=== PATIENT | male | born 1955 | race Caucasian/White ===

== ENCOUNTER → 2017-02-12 | Outpatient (CLI) | payer MEDICARE, MEDICAID ==
[~2017-02-12] MED LIST: ASPI-498 OR; BENA20TA PO; CILO100T PO; CLOP75TA28 PO; ESOM40CA39 PO; FLUT250M2 INH; LEVO100T8 PO; METO25TA5 PO; MULT-908 OR; PHE100C PO; POTA10TA51 PO; SIMV10TA73 PO; TRIA75TA66 PO
== END ==
LOC: Rad HDHVI 10:19
PROVIDERS: ATTEND Internal Medicine Cardiovascular Disease
DX: M47.896 Other spondylosis, lumbar region (principal); I70.0 Atherosclerosis of aorta
CPT/HCPCS: 72110

== ENCOUNTER → 2017-10-09 | Outpatient (CLI) | payer MEDICARE, MEDICAID ==
[~2017-10-09] VITALS: Ht 30.5 cm; Wt 78.9 kg
[~2017-10-09] MED LIST changes: +IOHEXOL 350 MG/ML 100ML IJ ONE; +METOPROLOL TARTRATE 25 MG TAB ONE; +METOPROLOL TARTRATE 25 MG TAB PO ONE; +SODIUM CHLORIDE 0.9% 250 ML IV ONE
[2017-10-09 09:00] VITALS: BP 191/110
[2017-10-09 10:50] VITALS: BP 170/98
== END | disposition home or self-care (01) ==
LOC: Rad HDHVI 08:56
PROVIDERS: ATTEND Internal Medicine Cardiovascular Disease
DX: I25.10 Atherosclerotic heart disease of native coronary artery without angina pectoris (principal); I12.9 Hypertensive chronic kidney disease with stage 1 through stage 4 chronic kidney disease, or unspecified chronic kidney disease; N18.9 Chronic kidney disease, unspecified
CPT/HCPCS: 82565; 96374; G0463; Q9967

== ENCOUNTER → 2017-10-16 | Outpatient (CLI) | payer MEDICARE, MEDICAID ==
[~2017-10-16] MED LIST changes: -IOHEXOL 350 MG/ML 100ML IJ ONE; -METOPROLOL TARTRATE 25 MG TAB ONE; -METOPROLOL TARTRATE 25 MG TAB PO ONE; -SODIUM CHLORIDE 0.9% 250 ML IV ONE
== END | disposition home or self-care (01) ==
LOC: Rad HDHVI 12:36
PROVIDERS: ATTEND Internal Medicine Cardiovascular Disease
DX: I08.1 Rheumatic disorders of both mitral and tricuspid valves (principal); I70.0 Atherosclerosis of aorta; I25.10 Atherosclerotic heart disease of native coronary artery without angina pectoris
CPT/HCPCS: 93306; 93926

== ENCOUNTER → 2017-10-23 | Outpatient (CLI) | payer MEDICARE, MEDICAID ==
[~2017-10-23] VITALS: Ht 175.3 cm; Wt 78.9 kg
[~2017-10-23] MED LIST changes: +ADENOSINE 66 MG in GIVE UN-DILUTED 0 ML IV ONE; +ADENOSINE 90 MG/30 ML INJ IV ONE
[2017-10-23 16:44] LABS: Urine Bilirubin Negative (Negative); Urine Blood Negative /uL (Negative); Urine Color Yellow (Yellow); Urine Glucose Normal (Normal); Urine Ketone Negative (Negative); Urine Nitrite Negative (Negative); Urine Urobilinogen Normal (Negative); Urine pH 5.5 (5.0-8.0)
[2017-10-23 16:45] LABS: Basophils # (auto) 0 uL; Basophils % (auto) 0.4 % (0.0-2.0); Eosinophils # (auto) 0.1 uL; Eosinophils % (auto) 0.8 % (0.0-7.0); Hematocrit 38.6 % (41.0-53.0); Hemoglobin 12.7 g/dL (13.5-17.5); Lymphocytes # (auto) 1.6 uL; Lymphocytes % (auto) 19.4 % (10.0-50.0); Mean Corpuscular Hemoglobin 28.5 pg (28.0-32.0); Mean Corpuscular Hgb Conc. 32.9 g/dL (32.0-36.0); Mean Corpuscular Volume 86.6 fL (80.0-100.0); Mean Platelet Volume 8.1 fL (6.9-10.8); Monocytes # (auto) 0.8 uL; Monocytes % (auto) 9.4 % (0.0-12.0); Neutrophils # (auto) 5.8 uL; Nucleated Red Blood Cells % 0.4 %; Platelet Count (auto) 215 10^3/uL (140-450); Red Cell Distribution Width 18.5 % (11.8-14.3); White Blood Cell 8.3 10^3/uL (4.4-10.8)
[2017-10-23 17:03] LABS: Albumin 3.5 g/dL (3.4-5.0); BUN/Creatinine Ratio 12.7; Bilirubin, Total 0.7 mg/dL (0.2-1.0); Calcium 9.1 mg/dL (8.5-10.1); Potassium 4.1 mmol/L (3.5-5.1); Total Protein 8.1 g/dL (6.4-8.2)
== END | disposition home or self-care (01) ==
LOC: Rad HDHVI 09:48
PROVIDERS: ATTEND Internal Medicine Cardiovascular Disease
DX: E78.00 Pure hypercholesterolemia, unspecified (principal); I10 Essential (primary) hypertension; I25.10 Atherosclerotic heart disease of native coronary artery without angina pectoris; M54.9 Dorsalgia, unspecified; D64.9 Anemia, unspecified; E03.9 Hypothyroidism, unspecified; E11.9 Type 2 diabetes mellitus without complications; E55.9 Vitamin D deficiency, unspecified; R53.81 Other malaise; R79.82 Elevated C-reactive protein (CRP); D51.9 Vitamin B12 deficiency anemia, unspecified; N39.0 Urinary tract infection, site not specified; R94.4 Abnormal results of kidney function studies; K74.1 Hepatic sclerosis; R10.9 Unspecified abdominal pain; H53.9 Unspecified visual disturbance; R63.4 Abnormal weight loss; R53.1 Weakness
CPT/HCPCS: 36415; 78452; 80053; 80061; 81003; 82040; 82306; 82607; 83036; 84403; 84439; 84443; 85025; 86141; 93005; 96374; 96375; A9500; J0153

== ENCOUNTER → 2017-12-11 | Outpatient (CLI) | payer MEDICARE, MEDICAID ==
[~2017-12-11] MED LIST changes: -ADENOSINE 66 MG in GIVE UN-DILUTED 0 ML IV ONE; -ADENOSINE 90 MG/30 ML INJ IV ONE; +AMLO10TA2 PO; +CHOL20007 PO; +CLON0.1T14 PO; +IOHEXOL 350 MG/ML 100ML IJ ONE; +METOPROLOL TARTRATE 25 MG TAB ONE; +METOPROLOL TARTRATE 25 MG TAB PO ONE; +ONDANSETRON HCL 4 MG/2 ML VIAL ONE; +SACU1TAB PO; +SODIUM CHLORIDE 0.9% 1,000 ML IV SCH; +amLODIPine BESYLATE 5 MG TAB ONE; +amLODIPine BESYLATE 5 MG TAB PO ONE
[2017-12-11 12:55] VITALS: BP 165/93
[2017-12-11 16:20] VITALS: BP 150/94
[2017-12-11 16:30] LABS: BUN/Creatinine Ratio 12.7; Calcium 8.8 mg/dL (8.5-10.1); Potassium 3.8 mmol/L (3.5-5.1)
[2017-12-11 16:31] LABS: Basophils # (auto) 0 uL; Basophils % (auto) 0.5 % (0.0-2.0); Eosinophils # (auto) 0.1 uL; Eosinophils % (auto) 1.1 % (0.0-7.0); Hematocrit 35.2 % (41.0-53.0); Hemoglobin 11.2 g/dL (13.5-17.5); Lymphocytes # (auto) 1.1 uL; Lymphocytes % (auto) 21.5 % (10.0-50.0); Mean Corpuscular Hemoglobin 27.2 pg (28.0-32.0); Mean Corpuscular Hgb Conc. 31.8 g/dL (32.0-36.0); Mean Corpuscular Volume 85.7 fL (80.0-100.0); Monocytes # (auto) 0.4 uL; Monocytes % (auto) 8.7 % (0.0-12.0); Neutrophils # (auto) 3.5 uL; Neutrophils % (auto) 68.2 % (37.0-80.0); Platelet Count (auto) 174 10^3/uL (140-450); Red Cell Distribution Width 18.6 % (11.8-14.3); White Blood Cell 5.1 10^3/uL (4.4-10.8)
[2017-12-11 16:53] LABS: INR 1.15 (0.9-1.15); Partial Thromboplastin Time 28.6 sec (22.64-33.71); Prothrombin Time 12.6 sec (9.37-12.3)
== END | disposition home or self-care (01) ==
LOC: Rad HDHVI 12:50
PROVIDERS: ATTEND Internal Medicine Cardiovascular Disease
DX: Z01.812 Encounter for preprocedural laboratory examination (principal); D64.9 Anemia, unspecified; R79.1 Abnormal coagulation profile; I10 Essential (primary) hypertension; J44.9 Chronic obstructive pulmonary disease, unspecified; F17.200 Nicotine dependence, unspecified, uncomplicated; I50.9 Heart failure, unspecified; I25.10 Atherosclerotic heart disease of native coronary artery without angina pectoris
CPT/HCPCS: 36415; 71250; 80048; 82565; 85025; 85610; 85730; 93005; 94640; 96361; 96374; G0463; Q9967; 96360; 96366; J2405

== ENCOUNTER 2017-12-12 10:55 | Day surgery (SDC) | payer MEDICARE, MEDICAID ==
[~2017-12-12 10:55] MED LIST changes: -AMLO10TA2 PO; -CHOL20007 PO; -CLON0.1T14 PO; -IOHEXOL 350 MG/ML 100ML IJ ONE; -METOPROLOL TARTRATE 25 MG TAB ONE; -METOPROLOL TARTRATE 25 MG TAB PO ONE; -ONDANSETRON HCL 4 MG/2 ML VIAL ONE; -SACU1TAB PO; -SODIUM CHLORIDE 0.9% 1,000 ML IV SCH; -amLODIPine BESYLATE 5 MG TAB ONE; -amLODIPine BESYLATE 5 MG TAB PO ONE
== END 2017-12-12 15:00 | disposition home or self-care (01) ==
LOC: CATH 10:55
PROVIDERS: ATTEND Internal Medicine Cardiovascular Disease
DX: J90 Pleural effusion, not elsewhere classified (principal); Z95.1 Presence of aortocoronary bypass graft; F32.9 Major depressive disorder, single episode, unspecified; F17.210 Nicotine dependence, cigarettes, uncomplicated; I10 Essential (primary) hypertension; K21.9 Gastro-esophageal reflux disease without esophagitis; E03.9 Hypothyroidism, unspecified
CPT/HCPCS: 10022; 32555; 71045; 76942; 87205; 89051

== ENCOUNTER 2017-12-29 10:51 | Inpatient (IN) | payer MEDICARE, MEDICAID ==
[~2017-12-29] VITALS: Ht 175.3 cm; Wt 98.5 kg
[2017-12-29 11:28] LABS: Basophils # (auto) 0 uL; Basophils % (auto) 0.4 % (0.0-2.0); Eosinophils # (auto) 0 uL; Eosinophils % (auto) 0.7 % (0.0-7.0); Hematocrit 33.7 % (41.0-53.0); Hemoglobin 10.9 g/dL (13.5-17.5); Lymphocytes % (auto) 18.5 % (10.0-50.0); Mean Corpuscular Hemoglobin 27.1 pg (28.0-32.0); Mean Corpuscular Hgb Conc. 32.4 g/dL (32.0-36.0); Mean Corpuscular Volume 83.6 fL (80.0-100.0); Monocytes # (auto) 0.4 uL; Neutrophils % (auto) 72.4 % (37.0-80.0); Platelet Count (auto) 174 10^3/uL (140-450); Red Blood Cells 4.03 10^6/uL (4.5-5.90); Red Cell Distribution Width 19.4 % (11.8-14.3); White Blood Cell 5.5 10^3/uL (4.4-10.8)
[2017-12-29 11:50] LABS: Alanine Aminotransferase 18 U/L (16-61); Albumin 3.1 g/dL (3.4-5.0); Alkaline Phosphatase 168 U/L (45-117); Anion Gap 9 (5-15); Aspartate Aminotransferase 15 U/L (15-37); Bilirubin, Total 0.5 mg/dL (0.2-1.0); Blood Urea Nitrogen 18 mg/dL (7-18); Calcium 8.3 mg/dL (8.5-10.1); Carbon Dioxide 21 mmol/L (21-32); Chloride 106 mmol/L (98-107); GFR African American 49 mL/min; GFR Non-African American 41 mL/min; Glucose 115 mg/dL (74-106); Potassium 3.8 mmol/L (3.5-5.1); Sodium 136 mmol/L (136-145); Total Protein 7.7 g/dL (6.4-8.2)
[2017-12-29] MEDS ORDERED: FUROSEMIDE 20 MG/2 ML VIAL IV ONE (16:15)
[2017-12-29 16:41] LABS: Urine Bacteria NONE SEEN /hpf (None Seen); Urine Blood Negative /uL (Negative); Urine Specific Gravity 1.018 (1.001-1.035); Urine WBC 1 /hpf (0 - 3)
[2017-12-29] MEDS ORDERED: FUROSEMIDE 40 MG/4 ML VIAL IV ONE (19:30)
[2017-12-29] MEDS ORDERED: HYDROcodone-ACET 5/325MG TAB PO PRN (19:45)
[2017-12-29] MEDS ORDERED: MORPHINE SULFATE 4 MG/ML SYR/VIAL IV PRN ×2 (19:45)
[2017-12-29] MEDS ORDERED: NITROGLYCERIN 0.4 MG SL TAB SL PRN (19:45)
[2017-12-29] MEDS ORDERED: TEMAZEPAM 15 MG CAP PO PRN (19:45)
[2017-12-29] MEDS ORDERED: cloNIDine HCL 0.1 MG TAB PO PRN (19:45)
[2017-12-29] MEDS ORDERED: LORazepam 2MG/ML-1ML VIAL IV PRN (19:45)
[2017-12-29] MEDS ORDERED: DOCUSATE SOD 100 MG CAP PO PRN (19:45)
[2017-12-29] MEDS ORDERED: ACETAMINOPHEN 325 MG TAB PO PRN (19:45)
[2017-12-29] MEDS ORDERED: ONDANSETRON HCL 4 MG/2 ML VIAL IV PRN (19:45)
[2017-12-29 21:35] VITALS: BP 127/87
[2017-12-29] MEDS: CILOSTAZOL 100 MG TAB PO SCH (21:45)
[2017-12-29] MEDS: ATORVASTATIN 20 MG TAB PO SCH (21:45)
[2017-12-29] MEDS: ASCORBIC ACID 500 MG TAB PO SCH (21:45)
[2017-12-29] MEDS: POTASSIUM CHL 10 Meq TABLET PO SCH (21:46)
[2017-12-29] MEDS: SODIUM CHLOR 0.9% PF (SALINE LOCK) 10ML VIAL IV SCH (21:46)
[2017-12-29] MEDS: PHENYTOIN SODIUM 100 MG CAP PO SCH (21:46)
[2017-12-29] MEDS: cloNIDine HCL 0.1 MG TAB PO SCH (21:59)
[2017-12-29] MEDS ORDERED: FAMOTIDINE 20 MG TAB PO SCH (22:00)
[2017-12-30 04:39] VITALS: BP 123/85
[2017-12-30] MEDS: FUROSEMIDE 40 MG/4 ML VIAL IV SCH ×2 (05:25→18:31)
[2017-12-30] MEDS: PHENYTOIN SODIUM 100 MG CAP PO SCH ×3 (05:25→21:20)
[2017-12-30] MEDS: LEVOTHYROXINE SODIUM 100 MCG TAB PO SCH (06:17)
[2017-12-30] MEDS: SODIUM CHLOR 0.9% PF (SALINE LOCK) 10ML VIAL IV SCH ×3 (06:18→21:20)
[2017-12-30 06:50] LABS: Basophils # (auto) 0 uL; Eosinophils # (auto) 0 uL; Neutrophils # (auto) 3.4 uL; Nucleated Red Blood Cells % 0.1 %
[2017-12-30 06:53] LABS: Basophils % (auto) 0.6 % (0.0-2.0); Eosinophils % (auto) 0.9 % (0.0-7.0); Hematocrit 31.9 % (41.0-53.0); Hemoglobin 10.6 g/dL (13.5-17.5); Lymphocytes # (auto) 1.1 uL; Mean Corpuscular Hemoglobin 27.3 pg (28.0-32.0); Mean Corpuscular Hgb Conc. 33.1 g/dL (32.0-36.0); Mean Corpuscular Volume 82.6 fL (80.0-100.0); Monocytes # (auto) 0.5 uL; Monocytes % (auto) 10.6 % (0.0-12.0); Neutrophils % (auto) 66.9 % (37.0-80.0); Platelet Count (auto) 153 10^3/uL (140-450); Red Blood Cells 3.86 10^6/uL (4.5-5.90); Red Cell Distribution Width 19.2 % (11.8-14.3)
[2017-12-30 07:14] LABS: Alanine Aminotransferase 17 U/L (16-61); Albumin 3.1 g/dL (3.4-5.0); Alkaline Phosphatase 137 U/L (45-117); Anion Gap 9 (5-15); Aspartate Aminotransferase 16 U/L (15-37); BUN/Creatinine Ratio 9.9; Bilirubin, Total 0.7 mg/dL (0.2-1.0); Blood Urea Nitrogen 18 mg/dL (7-18); Calcium 8.4 mg/dL (8.5-10.1); Carbon Dioxide 25 mmol/L (21-32); Chloride 103 mmol/L (98-107); GFR African American 49 mL/min; GFR Non-African American 40 mL/min; Glucose 99 mg/dL (74-106); Potassium 3.2 mmol/L (3.5-5.1); Sodium 137 mmol/L (136-145); Total Protein 7.3 g/dL (6.4-8.2)
[2017-12-30 09:00] VITALS: BP 142/110
[2017-12-30] MEDS ORDERED: TRIAMTERENE/HCTZ 37.5/25 MG CAP PO SCH (10:00)
[2017-12-30] MEDS ORDERED: PATIENTS OWN MEDICATION IN SCH (10:00)
[2017-12-30] MEDS ORDERED: ENOXAPARIN SOD 40 MG/0.4 ML SYRINGE SC SCH (10:00)
[2017-12-30] MEDS: ENTRESTO PO SCH ×2 (10:00→21:29)
[2017-12-30] MEDS: PANTOPRAZOLE 40 MG TAB PO SCH (10:09)
[2017-12-30] MEDS: ASCORBIC ACID 500 MG TAB PO SCH ×2 (10:09→21:20)
[2017-12-30] MEDS: METOPROLOL SUCCINATE XL 50 MG TAB PO SCH (10:09)
[2017-12-30] MEDS: POTASSIUM CHL 10 Meq TABLET PO SCH ×2 (10:09→21:20)
[2017-12-30] MEDS: MULTIPLE VITAMIN TAB PO SCH (10:10)
[2017-12-30] MEDS: CLOPIDOGREL BISULFATE 75 MG TAB PO SCH (10:10)
[2017-12-30] MEDS: CHOLECALCIFEROL (VITD3) 1,000 UNIT TAB PO SCH (10:10)
[2017-12-30] MEDS: ASPirin-EC 81 mg tab PO SCH (10:11)
[2017-12-30] MEDS: amLODIPine BESYLATE 5 MG TAB PO SCH (10:12)
[2017-12-30] MEDS: ZINC SULFATE 220 MG CAP PO SCH (10:12)
[2017-12-30] MEDS: cloNIDine HCL 0.1 MG TAB PO SCH ×2 (10:12→21:30)
[2017-12-30] MEDS: CILOSTAZOL 100 MG TAB PO SCH ×2 (10:12→21:20)
[2017-12-30] MEDS: BOOST PLUS 8 ounce PO SCH ×3 (10:14→18:31)
[2017-12-30 13:00] VITALS: BP 86/60
[2017-12-30] MEDS: ALBUTEROL SULF 2.5 MG/0.5ML(0.5%) NEB SOLN NEB SCH ×2 (14:03→19:29)
[2017-12-30] MEDS: IPRATROPIUM BROM 0.5 MG/2.5ML INH SOL NEB SCH ×2 (14:03→19:29)
[2017-12-30] MEDS: SPIRONOLACTONE 25 MG TAB PO SCH (14:26)
[2017-12-30] MEDS: DOBUTamine 1000MCG/ML 250 ML IV SCH ×2 (14:26→23:11)
[2017-12-30 17:00] VITALS: BP 93/42
[2017-12-30] MEDS ORDERED: CLON0.1T14 PO (17:56)
[2017-12-30] MEDS ORDERED: SACU1TAB PO (17:56)
[2017-12-30] MEDS ORDERED: AMLO10TA2 PO (17:56)
[2017-12-30] MEDS ORDERED: CHOL20007 PO (17:56)
[2017-12-30 19:32] VITALS: BP 112/68
[2017-12-30] MEDS: ATORVASTATIN 20 MG TAB PO SCH (21:28)
[2017-12-30 21:40] VITALS: BP 106/56
[2017-12-31] MEDS: IPRATROPIUM BROM 0.5 MG/2.5ML INH SOL NEB SCH ×4 (00:08→19:43)
[2017-12-31] MEDS: ALBUTEROL SULF 2.5 MG/0.5ML(0.5%) NEB SOLN NEB SCH ×4 (00:08→19:43)
[2017-12-31 04:57] VITALS: BP 112/52
[2017-12-31] MEDS: PHENYTOIN SODIUM 100 MG CAP PO SCH ×3 (05:30→22:41)
[2017-12-31] MEDS: SODIUM CHLOR 0.9% PF (SALINE LOCK) 10ML VIAL IV SCH ×3 (05:30→22:00)
[2017-12-31] MEDS: FUROSEMIDE 40 MG/4 ML VIAL IV SCH ×2 (05:30→18:18)
[2017-12-31] MEDS: LEVOTHYROXINE SODIUM 100 MCG TAB PO SCH (06:07)
[2017-12-31 08:00] VITALS: BP 105/64
[2017-12-31] MEDS: BOOST PLUS 8 ounce PO SCH ×3 (08:00→18:18)
[2017-12-31 08:31] VITALS: BP 105/64
[2017-12-31] MEDS: ENTRESTO PO SCH ×2 (10:00→22:00)
[2017-12-31] MEDS: PANTOPRAZOLE 40 MG TAB PO SCH (10:00)
[2017-12-31] MEDS: DOBUTamine 1000MCG/ML 250 ML IV SCH ×2 (11:51→20:20)
[2017-12-31] MEDS: ZINC SULFATE 220 MG CAP PO SCH (12:19)
[2017-12-31] MEDS: SPIRONOLACTONE 25 MG TAB PO SCH (12:19)
[2017-12-31] MEDS: ASPirin-EC 81 mg tab PO SCH (12:20)
[2017-12-31] MEDS: cloNIDine HCL 0.1 MG TAB PO SCH ×2 (12:20→22:41)
[2017-12-31] MEDS: MULTIPLE VITAMIN TAB PO SCH (12:21)
[2017-12-31] MEDS: POTASSIUM CHL 10 Meq TABLET PO SCH ×2 (12:21→22:41)
[2017-12-31] MEDS: CILOSTAZOL 100 MG TAB PO SCH ×2 (12:21→22:42)
[2017-12-31] MEDS: CLOPIDOGREL BISULFATE 75 MG TAB PO SCH (12:21)
[2017-12-31] MEDS: ASCORBIC ACID 500 MG TAB PO SCH ×2 (12:22→22:42)
[2017-12-31] MEDS: METOPROLOL SUCCINATE XL 50 MG TAB PO SCH (12:22)
[2017-12-31] MEDS: CHOLECALCIFEROL (VITD3) 1,000 UNIT TAB PO SCH (12:22)
[2017-12-31] MEDS: amLODIPine BESYLATE 5 MG TAB PO SCH (12:23)
[2017-12-31 12:26] VITALS: BP 105/62
[2017-12-31 17:04] VITALS: BP 122/76
[2017-12-31 22:08] VITALS: BP 125/62
[2017-12-31] MEDS: ATORVASTATIN 20 MG TAB PO SCH (22:42)
[2018-01-01] MEDS: IPRATROPIUM BROM 0.5 MG/2.5ML INH SOL NEB SCH ×3 (00:29→12:34)
[2018-01-01] MEDS: ALBUTEROL SULF 2.5 MG/0.5ML(0.5%) NEB SOLN NEB SCH ×3 (00:29→12:34)
[2018-01-01] MEDS: DOBUTamine 1000MCG/ML 250 ML IV SCH ×3 (03:05→12:25)
[2018-01-01 05:39] VITALS: BP 139/79
[2018-01-01] MEDS: FUROSEMIDE 40 MG/4 ML VIAL IV SCH (05:41)
[2018-01-01] MEDS: PHENYTOIN SODIUM 100 MG CAP PO SCH (05:41)
[2018-01-01] MEDS: LEVOTHYROXINE SODIUM 100 MCG TAB PO SCH (05:42)
[2018-01-01] MEDS: SODIUM CHLOR 0.9% PF (SALINE LOCK) 10ML VIAL IV SCH (05:42)
[2018-01-01 06:49] LABS: Basophils # (auto) 0 uL; Basophils % (auto) 0.5 % (0.0-2.0); Eosinophils # (auto) 0.1 uL; Monocytes # (auto) 0.5 uL; Neutrophils # (auto) 2.6 uL
[2018-01-01 06:52] LABS: Eosinophils % (auto) 1.4 % (0.0-7.0); Hematocrit 28.4 % (41.0-53.0); Hemoglobin 9.4 g/dL (13.5-17.5); Lymphocytes % (auto) 24.3 % (10.0-50.0); Mean Corpuscular Hemoglobin 27.1 pg (28.0-32.0); Mean Corpuscular Volume 82.1 fL (80.0-100.0); Monocytes % (auto) 11.4 % (0.0-12.0); Neutrophils % (auto) 62.4 % (37.0-80.0); Platelet Count (auto) 135 10^3/uL (140-450); Red Blood Cells 3.46 10^6/uL (4.5-5.90); Red Cell Distribution Width 19.8 % (11.8-14.3); White Blood Cell 4.1 10^3/uL (4.4-10.8)
[2018-01-01 07:14] LABS: Albumin 3.2 g/dL (3.4-5.0); BUN/Creatinine Ratio 11.3; Bilirubin, Total 0.7 mg/dL (0.2-1.0); Calcium 8.9 mg/dL (8.5-10.1); Potassium 3.6 mmol/L (3.5-5.1); Total Protein 7.3 g/dL (6.4-8.2)
[2018-01-01 09:00] VITALS: BP 113/68
[2018-01-01] MEDS: CHOLECALCIFEROL (VITD3) 1,000 UNIT TAB PO SCH (09:10)
[2018-01-01] MEDS: SPIRONOLACTONE 25 MG TAB PO SCH (09:10)
[2018-01-01] MEDS: CLOPIDOGREL BISULFATE 75 MG TAB PO SCH (09:11)
[2018-01-01] MEDS: POTASSIUM CHL 10 Meq TABLET PO SCH (09:11)
[2018-01-01] MEDS: ZINC SULFATE 220 MG CAP PO SCH (09:11)
[2018-01-01] MEDS: MULTIPLE VITAMIN TAB PO SCH (09:11)
[2018-01-01] MEDS: CILOSTAZOL 100 MG TAB PO SCH ×2 (09:11→10:00)
[2018-01-01] MEDS: PANTOPRAZOLE 40 MG TAB PO SCH (09:12)
[2018-01-01] MEDS: METOPROLOL SUCCINATE XL 50 MG TAB PO SCH (09:12)
[2018-01-01] MEDS: amLODIPine BESYLATE 5 MG TAB PO SCH (09:12)
[2018-01-01] MEDS: ASCORBIC ACID 500 MG TAB PO SCH (09:13)
[2018-01-01] MEDS: ASPirin-EC 81 mg tab PO SCH (09:13)
[2018-01-01] MEDS: cloNIDine HCL 0.1 MG TAB PO SCH (09:13)
[2018-01-01] MEDS: BOOST PLUS 8 ounce PO SCH (09:17)
[2018-01-01] MEDS: ENTRESTO PO SCH (10:00)
[2018-01-01 11:39] VITALS: BP 113/68
[2018-01-01 12:21] VITALS: BP 116/68
== END 2018-01-01 13:25 | disposition home health service (06) | DRG 291 ==
LOC: ER 10:51 → TELE 10:52 → TELE-EAST 21:35
PROVIDERS: ADMIT Internal Medicine; ATTEND Family Medicine
PROC: 0W993ZZ Drainage of Right Pleural Cavity, Percutaneous Approach (ICD-10-PCS; principal; 2017-12-30)
DX: I13.0 Hypertensive heart and chronic kidney disease with heart failure and stage 1 through stage 4 chronic kidney disease, or unspecified chronic kidney disease (principal); I50.43 Acute on chronic combined systolic (congestive) and diastolic (congestive) heart failure; J90 Pleural effusion, not elsewhere classified; E44.0 Moderate protein-calorie malnutrition; N18.3 Chronic kidney disease, stage 3 (moderate); E83.51 Hypocalcemia; Z95.1 Presence of aortocoronary bypass graft; I25.5 Ischemic cardiomyopathy; D63.8 Anemia in other chronic diseases classified elsewhere; E03.9 Hypothyroidism, unspecified; E78.00 Pure hypercholesterolemia, unspecified; E78.5 Hyperlipidemia, unspecified; E87.6 Hypokalemia; F17.210 Nicotine dependence, cigarettes, uncomplicated; J44.9 Chronic obstructive pulmonary disease, unspecified; G40.909 Epilepsy, unspecified, not intractable, without status epilepticus; I25.10 Atherosclerotic heart disease of native coronary artery without angina pectoris; Z68.32 Body mass index [BMI] 32.0-32.9, adult; I25.2 Old myocardial infarction; Z82.49 Family history of ischemic heart disease and other diseases of the circulatory system; Z83.3 Family history of diabetes mellitus; Z86.73 Personal history of transient ischemic attack (TIA), and cerebral infarction without residual deficits; Z91.19 Patient's noncompliance with other medical treatment and regimen; Z95.5 Presence of coronary angioplasty implant and graft; Z95.810 Presence of automatic (implantable) cardiac defibrillator; Z79.899 Other long term (current) drug therapy; Z79.82 Long term (current) use of aspirin
CPT/HCPCS: 32554; 36415; 51702; 71046; 80053; 81001; 83880; 84484; 85025; 93005; 94640; 94761; 96374; 96376

== ENCOUNTER → 2018-01-02 | Outpatient (CLI) | payer MEDICARE, MEDICAID ==
[~2018-01-02] MED LIST changes: +AMLO10TA2 PO; -BENA20TA PO; +BUMETANIDE (0.25MG/ML) 4 ML VIAL IV ONE; +BUMETANIDE INJECTION 10 ML ONE; +CHOL20007 PO; +CLON0.1T14 PO; +CYANOCOBALAMIN (B-12) 1000 MCG/1 ML VIAL IM ONE; +CYANOCOBALAMIN (B-12) 1000 MCG/1 ML VIAL ONE; +POTASSIUM CHL 20 Meq TABLET PO ONE; +SACU1TAB PO
[2018-01-02 12:00] VITALS: BP 144/81
[2018-01-02 13:40] VITALS: BP 145/86
[2018-01-02 16:33] LABS: Basophils # (auto) 0 uL; Basophils % (auto) 0.4 % (0.0-2.0); Eosinophils # (auto) 0.1 uL; Hemoglobin 10.7 g/dL (13.5-17.5); Lymphocytes # (auto) 0.7 uL; Monocytes # (auto) 0.4 uL; Monocytes % (auto) 10.7 % (0.0-12.0); Neutrophils # (auto) 2.9 uL; Neutrophils % (auto) 70.3 % (37.0-80.0); Nucleated Red Blood Cells % 0.5 %; White Blood Cell 4.1 10^3/uL (4.4-10.8)
[2018-01-02 16:34] LABS: BUN/Creatinine Ratio 16.2; Magnesium 2.7 mg/dL (1.6-2.6)
[2018-01-02 16:35] LABS: Eosinophils % (auto) 1.7 % (0.0-7.0); Hematocrit 33.4 % (41.0-53.0); Lymphocytes % (auto) 16.9 % (10.0-50.0); Mean Corpuscular Hemoglobin 26.8 pg (28.0-32.0); Mean Corpuscular Hgb Conc. 32.1 g/dL (32.0-36.0); Mean Corpuscular Volume 83.4 fL (80.0-100.0); Platelet Count (auto) 140 10^3/uL (140-450); Red Cell Distribution Width 19.7 % (11.8-14.3)
== END | disposition home or self-care (01) ==
LOC: CHF HDHVI 12:16
PROVIDERS: ATTEND Internal Medicine Cardiovascular Disease
DX: I11.0 Hypertensive heart disease with heart failure (principal); I50.9 Heart failure, unspecified; D64.9 Anemia, unspecified; E83.40 Disorders of magnesium metabolism, unspecified; J90 Pleural effusion, not elsewhere classified
CPT/HCPCS: 36415; 71046; 80048; 83735; 83880; 85025; 96372; 96374; G0463; J3420

== ENCOUNTER → 2018-01-03 | Outpatient (CLI) | payer MEDICARE, MEDICAID ==
[~2018-01-03] VITALS: Ht 175.3 cm; Wt 80.7 kg
[~2018-01-03] MED LIST changes: -BUMETANIDE (0.25MG/ML) 4 ML VIAL IV ONE; -BUMETANIDE INJECTION 10 ML ONE; -CYANOCOBALAMIN (B-12) 1000 MCG/1 ML VIAL IM ONE; -CYANOCOBALAMIN (B-12) 1000 MCG/1 ML VIAL ONE; -POTASSIUM CHL 20 Meq TABLET PO ONE
== END | disposition home or self-care (01) ==
LOC: Rad HDHVI 10:04
PROVIDERS: ATTEND Internal Medicine Cardiovascular Disease
DX: I50.23 Acute on chronic systolic (congestive) heart failure (principal); J44.9 Chronic obstructive pulmonary disease, unspecified; J96.90 Respiratory failure, unspecified, unspecified whether with hypoxia or hypercapnia
CPT/HCPCS: 78472; 96374; A9505; 96375

== ENCOUNTER → 2018-01-14 | Outpatient (CLI) | payer MEDICARE, MEDICAID ==
[~2018-01-14] MED LIST changes: +CYANOCOBALAMIN (B-12) 1000 MCG/1 ML VIAL IM ONE; +CYANOCOBALAMIN (B-12) 1000 MCG/1 ML VIAL ONE; +FUROSEMIDE 40 MG/4 ML VIAL IV ONE; +FUROSEMIDE 40 MG/4 ML VIAL ONE; +METOPROLOL TARTRATE 25 MG TAB ONE; +METOPROLOL TARTRATE 25 MG TAB PO ONE; +POTASSIUM CHL 20 Meq TABLET PO ONE
[2018-01-14 13:15] VITALS: BP 169/93
[2018-01-14 14:10] VITALS: BP 148/96
[2018-01-14 16:11] LABS: Potassium 3.8 mmol/L (3.5-5.1)
[2018-01-14 16:16] LABS: Basophils # (auto) 0 uL; Basophils % (auto) 0.4 % (0.0-2.0); Eosinophils # (auto) 0 uL; Eosinophils % (auto) 0.7 % (0.0-7.0); Hemoglobin 10.3 g/dL (13.5-17.5); Monocytes # (auto) 0.6 uL; Neutrophils # (auto) 3.9 uL; Platelet Count (auto) 162 10^3/uL (140-450); White Blood Cell 5.5 10^3/uL (4.4-10.8)
[2018-01-14 16:18] LABS: Hematocrit 32.3 % (41.0-53.0); Lymphocytes % (auto) 17.4 % (10.0-50.0); Mean Corpuscular Hemoglobin 26.6 pg (28.0-32.0); Monocytes % (auto) 10.3 % (0.0-12.0); Neutrophils % (auto) 71.2 % (37.0-80.0); Nucleated Red Blood Cells % 0.2 %; Red Blood Cells 3.89 10^6/uL (4.5-5.90)
[2018-01-14 16:44] LABS: Red Cell Distribution Width 20.3 % (11.8-14.3)
== END | disposition home or self-care (01) ==
LOC: Rad HDHVI 13:10
PROVIDERS: ATTEND Internal Medicine Cardiovascular Disease
DX: D64.9 Anemia, unspecified (principal); E87.6 Hypokalemia; R94.4 Abnormal results of kidney function studies; I50.23 Acute on chronic systolic (congestive) heart failure; I50.33 Acute on chronic diastolic (congestive) heart failure; I25.10 Atherosclerotic heart disease of native coronary artery without angina pectoris; I27.21 Secondary pulmonary arterial hypertension; I07.1 Rheumatic tricuspid insufficiency; Z95.0 Presence of cardiac pacemaker
CPT/HCPCS: 36415; 82565; 84132; 84520; 85025; 93306; 96372; 96374; G0463; J1940; J3420

== ENCOUNTER → 2018-01-17 | Outpatient (CLI) | payer MEDICARE, MEDICAID ==
[~2018-01-17] MED LIST changes: -CYANOCOBALAMIN (B-12) 1000 MCG/1 ML VIAL IM ONE; -CYANOCOBALAMIN (B-12) 1000 MCG/1 ML VIAL ONE; +FUROSEMIDE 100 MG/10ML VIAL IV ONE; -FUROSEMIDE 40 MG/4 ML VIAL IV ONE; -METOPROLOL TARTRATE 25 MG TAB ONE; -METOPROLOL TARTRATE 25 MG TAB PO ONE
[2018-01-17 15:10] VITALS: BP 142/88
== END | disposition home or self-care (01) ==
LOC: CHF HDHVI 14:39
PROVIDERS: ATTEND Internal Medicine Cardiovascular Disease
DX: I50.9 Heart failure, unspecified (principal)
CPT/HCPCS: 96374; G0463; J1940

== ENCOUNTER → 2018-01-21 | Outpatient (CLI) | payer MEDICARE, MEDICAID ==
[2018-01-21 14:15] VITALS: BP 137/83
[2018-01-21 15:30] VITALS: BP 151/94
[2018-01-21 16:15] LABS: Basophils # (auto) 0 uL; Eosinophils # (auto) 0 uL; Hemoglobin 10.2 g/dL (13.5-17.5); Monocytes # (auto) 0.6 uL
[2018-01-21 16:17] LABS: Albumin 3.2 g/dL (3.4-5.0); BUN/Creatinine Ratio 8.1; Bilirubin, Total 0.7 mg/dL (0.2-1.0); Calcium 8.6 mg/dL (8.5-10.1); Potassium 3.9 mmol/L (3.5-5.1); Total Protein 6.9 g/dL (6.4-8.2)
[2018-01-21 16:18] LABS: Basophils % (auto) 0.5 % (0.0-2.0); Eosinophils % (auto) 0.4 % (0.0-7.0); Hematocrit 31.4 % (41.0-53.0); Lymphocytes # (auto) 0.7 uL; Mean Corpuscular Hgb Conc. 32.7 g/dL (32.0-36.0); Mean Corpuscular Volume 82.7 fL (80.0-100.0); Monocytes % (auto) 11.2 % (0.0-12.0); Neutrophils # (auto) 4.3 uL; Neutrophils % (auto) 74.9 % (37.0-80.0); Platelet Count (auto) 158 10^3/uL (140-450); Red Blood Cells 3.79 10^6/uL (4.5-5.90); White Blood Cell 5.7 10^3/uL (4.4-10.8)
[2018-01-21 16:26] LABS: Red Cell Distribution Width 20.2 % (11.8-14.3)
== END | disposition home or self-care (01) ==
LOC: CHF HDHVI 14:26
PROVIDERS: ATTEND Internal Medicine Cardiovascular Disease
DX: I11.0 Hypertensive heart disease with heart failure (principal); I50.9 Heart failure, unspecified; D64.9 Anemia, unspecified; R53.81 Other malaise; E55.9 Vitamin D deficiency, unspecified; E29.1 Testicular hypofunction; J44.9 Chronic obstructive pulmonary disease, unspecified
CPT/HCPCS: 36415; 80053; 82306; 83880; 84403; 85025; 96374; G0463; J1940

== ENCOUNTER → 2018-01-23 | Outpatient (CLI) | payer MEDICARE, MEDICAID ==
[2018-01-23 10:05] VITALS: BP 176/84
[2018-01-23 11:27] VITALS: BP 136/70
[2018-01-23 12:11] LABS: Potassium 3.8 mmol/L (3.5-5.1)
== END | disposition home or self-care (01) ==
LOC: CHF HDHVI 10:16
PROVIDERS: ATTEND Internal Medicine Cardiovascular Disease
DX: E87.6 Hypokalemia (principal); R94.4 Abnormal results of kidney function studies
CPT/HCPCS: 36415; 82565; 84132; 84520; 96374; G0463; J1940

== ENCOUNTER 2018-01-24 21:14 | Inpatient (IN) | payer MEDICARE, MEDICAID ==
[~2018-01-24] VITALS: Ht 175.3 cm; Wt 73.0 kg
[~2018-01-24 21:14] MED LIST changes: -FUROSEMIDE 100 MG/10ML VIAL IV ONE; -FUROSEMIDE 40 MG/4 ML VIAL ONE; -POTASSIUM CHL 20 Meq TABLET PO ONE
[2018-01-24] MEDS ORDERED: FUROSEMIDE 20 MG/2 ML VIAL IV ONE (23:00)
[2018-01-24 23:53] LABS: Basophils # (auto) 0 uL; Basophils % (auto) 0.6 % (0.0-2.0); Eosinophils # (auto) 0 uL; Hemoglobin 11.7 g/dL (13.5-17.5); Lymphocytes # (auto) 1.1 uL; Mean Corpuscular Hemoglobin 26.4 pg (28.0-32.0); Neutrophils # (auto) 4.9 uL; Red Blood Cells 4.43 10^6/uL (4.5-5.90); White Blood Cell 6.7 10^3/uL (4.4-10.8)
[2018-01-24 23:54] LABS: Eosinophils % (auto) 0.4 % (0.0-7.0); Hematocrit 36.3 % (41.0-53.0); Lymphocytes % (auto) 16.7 % (10.0-50.0); Mean Corpuscular Hgb Conc. 32.2 g/dL (32.0-36.0); Mean Corpuscular Volume 82.1 fL (80.0-100.0); Monocytes # (auto) 0.7 uL; Monocytes % (auto) 9.8 % (0.0-12.0); Neutrophils % (auto) 72.5 % (37.0-80.0)
[2018-01-24 23:56] LABS: Platelet Count (auto) 184 10^3/uL (140-450); Red Cell Distribution Width 20.6 % (11.8-14.3)
[2018-01-25] VITALS (8 sets, daily range): BP systolic 122–137; BP diastolic 71–84
[2018-01-25 00:05] LABS: Albumin 3.7 g/dL (3.4-5.0); Anion Gap 7 (5-15); Blood Urea Nitrogen 19 mg/dL (7-18); Calcium 9.3 mg/dL (8.5-10.1); Carbon Dioxide 24 mmol/L (21-32); Chloride 102 mmol/L (98-107); Glucose 111 mg/dL (74-106); Magnesium 2.1 mg/dL (1.6-2.6); Sodium 133 mmol/L (136-145)
[2018-01-25 00:07] LABS: Alanine Aminotransferase 25 U/L (16-61); Aspartate Aminotransferase 22 U/L (15-37); BUN/Creatinine Ratio 12.8; GFR African American 62 mL/min; GFR Non-African American 51 mL/min
[2018-01-25 00:09] LABS: INR 1.05 (0.9-1.15); Partial Thromboplastin Time 26.1 sec (22.64-33.71); Prothrombin Time 11.4 sec (9.37-12.3)
[2018-01-25 00:13] LABS: Alkaline Phosphatase 191 U/L (45-117); Bilirubin, Total 0.7 mg/dL (0.2-1.0); Total Protein 8.1 g/dL (6.4-8.2)
[2018-01-25] MEDS ORDERED: LEVOFLOXACIN 750MG 150 ML IV ONE (01:15)
[2018-01-25] MEDS ORDERED: FUROSEMIDE 20 MG/2 ML VIAL IV ONE (01:15)
[2018-01-25] MEDS ORDERED: NITROGLYCERIN 0.4 MG SL TAB SL PRN (02:30)
[2018-01-25] MEDS ORDERED: MORPHINE SULFATE 4 MG/ML SYR/VIAL IV PRN (02:30)
[2018-01-25] MEDS ORDERED: cloNIDine HCL 0.1 MG TAB PO PRN (03:15)
[2018-01-25] MEDS ORDERED: ACETAMINOPHEN 500 MG TAB PO PRN (03:15)
[2018-01-25] MEDS ORDERED: ALBUTEROL SULF 2.5 MG/0.5ML(0.5%) NEB SOLN NEB PRN (03:30)
[2018-01-25] MEDS: PHENYTOIN SODIUM 100 MG CAP PO SCH ×3 (05:40→22:02)
[2018-01-25] MEDS: LEVOTHYROXINE SODIUM 100 MCG TAB PO SCH (06:17)
[2018-01-25] MEDS: POTASSIUM CHLORIDE 8 MEQ TAB PO SCH (09:40)
[2018-01-25] MEDS: ASPirin-EC 81 mg tab PO SCH (09:40)
[2018-01-25] MEDS: AZITHROMYCIN 500MG/ 250ML 250 ML IV SCH (09:40)
[2018-01-25] MEDS: amLODIPine BESYLATE 5 MG TAB PO SCH (09:41)
[2018-01-25] MEDS: FUROSEMIDE 40 MG/4 ML VIAL IV SCH (09:41)
[2018-01-25] MEDS: METOPROLOL TARTRATE 25 MG TAB PO SCH ×2 (09:41→22:03)
[2018-01-25] MEDS: IPRATROPIUM BROM 0.5 MG/2.5ML INH SOL NEB SCH ×2 (11:32→18:37)
[2018-01-25] MEDS: ALBUTEROL SULF 2.5 MG/0.5ML(0.5%) NEB SOLN NEB SCH ×2 (11:33→18:37)
[2018-01-25] MEDS ORDERED: IOHEXOL 350 MG/ML 100ML IJ ONE (11:52)
[2018-01-25 12:40] LABS: Basophils # (auto) 0 uL; Basophils % (auto) 0.6 % (0.0-2.0); Eosinophils # (auto) 0 uL; Eosinophils % (auto) 0.6 % (0.0-7.0); Hematocrit 34.7 % (41.0-53.0); Hemoglobin 11.3 g/dL (13.5-17.5); Lymphocytes # (auto) 0.9 uL; Lymphocytes % (auto) 14.6 % (10.0-50.0); Mean Corpuscular Hgb Conc. 32.7 g/dL (32.0-36.0); Mean Corpuscular Volume 82.4 fL (80.0-100.0); Monocytes # (auto) 0.6 uL; Monocytes % (auto) 9.1 % (0.0-12.0); Neutrophils # (auto) 4.9 uL; Neutrophils % (auto) 75.1 % (37.0-80.0); Platelet Count (auto) 170 10^3/uL (140-450); White Blood Cell 6.5 10^3/uL (4.4-10.8)
[2018-01-25 12:48] LABS: Red Cell Distribution Width 20.8 % (11.8-14.3)
[2018-01-25 12:58] LABS: BUN/Creatinine Ratio 12.7; Potassium 3.6 mmol/L (3.5-5.1)
[2018-01-25] MEDS: ALBUTEROL SULF 2.5 MG/0.5ML(0.5%) NEB SOLN NEB PRN (15:19)
[2018-01-26] MEDS: IPRATROPIUM BROM 0.5 MG/2.5ML INH SOL NEB SCH ×4 (00:34→19:24)
[2018-01-26] MEDS: ALBUTEROL SULF 2.5 MG/0.5ML(0.5%) NEB SOLN NEB SCH ×4 (00:34→19:24)
[2018-01-26 05:00] VITALS: BP 138/88
[2018-01-26] MEDS: PHENYTOIN SODIUM 100 MG CAP PO SCH ×3 (06:16→22:08)
[2018-01-26] MEDS: LEVOTHYROXINE SODIUM 100 MCG TAB PO SCH (06:16)
[2018-01-26 09:00] VITALS: BP 139/88
[2018-01-26] MEDS ORDERED: POTASSIUM CHL 20 Meq TABLET PO ONE (10:15)
[2018-01-26] MEDS: POTASSIUM CHLORIDE 8 MEQ TAB PO SCH (11:26)
[2018-01-26] MEDS: MAGNESIUM OXIDE 400 MG TAB PO SCH (11:26)
[2018-01-26] MEDS: ASPirin-EC 81 mg tab PO SCH (11:26)
[2018-01-26] MEDS: AZITHROMYCIN 500MG/ 250ML 250 ML IV SCH (11:27)
[2018-01-26] MEDS: FUROSEMIDE 40 MG/4 ML VIAL IV SCH (11:31)
[2018-01-26] MEDS: amLODIPine BESYLATE 5 MG TAB PO SCH (11:31)
[2018-01-26] MEDS: METOPROLOL TARTRATE 25 MG TAB PO SCH ×2 (11:32→22:08)
[2018-01-26 13:00] VITALS: BP 152/85
[2018-01-26 17:05] VITALS: BP 135/98
[2018-01-26 22:09] VITALS: BP 140/87
[2018-01-26] MEDS: TEMAZEPAM 15 MG CAP PO PRN (23:05)
[2018-01-27] MEDS: ALBUTEROL SULF 2.5 MG/0.5ML(0.5%) NEB SOLN NEB SCH ×4 (00:51→18:00)
[2018-01-27] MEDS: IPRATROPIUM BROM 0.5 MG/2.5ML INH SOL NEB SCH ×4 (00:51→18:00)
[2018-01-27 05:22] VITALS: BP 142/96
[2018-01-27] MEDS: PHENYTOIN SODIUM 100 MG CAP PO SCH ×3 (06:18→21:17)
[2018-01-27] MEDS: LEVOTHYROXINE SODIUM 100 MCG TAB PO SCH (06:21)
[2018-01-27 07:12] LABS: Albumin 3.2 g/dL (3.4-5.0); BUN/Creatinine Ratio 12.9; Bilirubin, Total 0.9 mg/dL (0.2-1.0); Calcium 8.7 mg/dL (8.5-10.1); Potassium 4.2 mmol/L (3.5-5.1)
[2018-01-27 08:00] VITALS: BP 130/90
[2018-01-27] MEDS: AZITHROMYCIN 500MG/ 250ML 250 ML IV SCH (10:07)
[2018-01-27] MEDS: MAGNESIUM OXIDE 400 MG TAB PO SCH (10:07)
[2018-01-27] MEDS: ASPirin-EC 81 mg tab PO SCH (10:07)
[2018-01-27] MEDS: POTASSIUM CHLORIDE 8 MEQ TAB PO SCH (10:07)
[2018-01-27] MEDS: amLODIPine BESYLATE 5 MG TAB PO SCH (10:08)
[2018-01-27] MEDS: FUROSEMIDE 40 MG/4 ML VIAL IV SCH (10:09)
[2018-01-27] MEDS: METOPROLOL TARTRATE 25 MG TAB PO SCH ×2 (10:09→21:17)
[2018-01-27] MEDS ORDERED: PANTOPRAZOLE 40 MG TAB PO ONE (11:30)
[2018-01-27 12:00] VITALS: BP 134/73
[2018-01-27] MEDS: DOBUTamine 1000MCG/ML 250 ML IV SCH ×2 (16:15→21:18)
[2018-01-27 17:00] VITALS: BP 139/75
[2018-01-27] MEDS: FUROSEMIDE INJECTION 500 MG in D5W 5% 450 ML IV SCH (17:07)
[2018-01-27] MEDS: ALBUTEROL SULF 2.5 MG/0.5ML(0.5%) NEB SOLN NEB PRN (20:52)
[2018-01-27] MEDS: TEMAZEPAM 15 MG CAP PO PRN (21:17)
[2018-01-27 21:30] VITALS: BP 145/81
[2018-01-28] MEDS: ALBUTEROL SULF 2.5 MG/0.5ML(0.5%) NEB SOLN NEB SCH ×4 (00:47→19:21)
[2018-01-28] MEDS: IPRATROPIUM BROM 0.5 MG/2.5ML INH SOL NEB SCH ×4 (00:47→19:21)
[2018-01-28 05:00] VITALS: BP 127/73
[2018-01-28] MEDS: PHENYTOIN SODIUM 100 MG CAP PO SCH ×3 (06:05→22:19)
[2018-01-28] MEDS: LEVOTHYROXINE SODIUM 100 MCG TAB PO SCH (06:05)
[2018-01-28 08:00] VITALS: BP 147/60
[2018-01-28 09:08] VITALS: BP 147/60
[2018-01-28] MEDS: AZITHROMYCIN 500MG/ 250ML 250 ML IV SCH (10:42)
[2018-01-28] MEDS: ASPirin-EC 81 mg tab PO SCH (10:42)
[2018-01-28] MEDS: POTASSIUM CHLORIDE 8 MEQ TAB PO SCH (10:43)
[2018-01-28] MEDS: MAGNESIUM OXIDE 400 MG TAB PO SCH (10:44)
[2018-01-28] MEDS: METOPROLOL TARTRATE 25 MG TAB PO SCH ×2 (10:44→22:19)
[2018-01-28] MEDS: PANTOPRAZOLE 40 MG TAB PO SCH (10:45)
[2018-01-28] MEDS: amLODIPine BESYLATE 5 MG TAB PO SCH (10:45)
[2018-01-28] MEDS: DOBUTamine 1000MCG/ML 250 ML IV SCH ×2 (11:13→21:13)
[2018-01-28 12:00] VITALS: BP 146/73
[2018-01-28 17:03] VITALS: BP 139/82
[2018-01-28 22:00] VITALS: BP 145/89
[2018-01-28] MEDS: TEMAZEPAM 15 MG CAP PO PRN (22:20)
[2018-01-28] MEDS: FUROSEMIDE INJECTION 500 MG in D5W 5% 450 ML IV SCH ×2 (22:20→22:45)
[2018-01-29 06:02] VITALS: BP 136/85
[2018-01-29] MEDS: PHENYTOIN SODIUM 100 MG CAP PO SCH ×3 (06:07→21:34)
[2018-01-29] MEDS: LEVOTHYROXINE SODIUM 100 MCG TAB PO SCH (06:07)
[2018-01-29] MEDS: IPRATROPIUM BROM 0.5 MG/2.5ML INH SOL NEB SCH ×4 (06:32→19:31)
[2018-01-29] MEDS: ALBUTEROL SULF 2.5 MG/0.5ML(0.5%) NEB SOLN NEB SCH ×4 (06:33→19:31)
[2018-01-29 07:27] VITALS: BP 142/81
[2018-01-29 07:53] LABS: Albumin 3.6 g/dL (3.4-5.0); Bilirubin, Total 1.2 mg/dL (0.2-1.0); Calcium 8.6 mg/dL (8.5-10.1); Total Protein 7.6 g/dL (6.4-8.2)
[2018-01-29 08:20] LABS: Potassium 2.6 mmol/L (3.5-5.1)
[2018-01-29] MEDS: POTASSIUM CHLORIDE 8 MEQ TAB PO SCH (08:21)
[2018-01-29] MEDS: PANTOPRAZOLE 40 MG TAB PO SCH (08:21)
[2018-01-29] MEDS: amLODIPine BESYLATE 5 MG TAB PO SCH (08:21)
[2018-01-29] MEDS: MAGNESIUM OXIDE 400 MG TAB PO SCH (08:21)
[2018-01-29] MEDS: ASPirin-EC 81 mg tab PO SCH (08:21)
[2018-01-29] MEDS: METOPROLOL TARTRATE 25 MG TAB PO SCH ×2 (08:22→21:34)
[2018-01-29] MEDS ORDERED: POTASSIUM CHL 20 Meq TABLET PO ONE (09:30)
[2018-01-29] MEDS: AZITHROMYCIN 500MG/ 250ML 250 ML IV SCH (10:22)
[2018-01-29] MEDS: DOBUTamine 1000MCG/ML 250 ML IV SCH ×3 (10:52→22:00)
[2018-01-29 11:48] VITALS: BP 144/86
[2018-01-29 16:48] VITALS: BP 136/89
[2018-01-29] MEDS: FUROSEMIDE INJECTION 500 MG in D5W 5% 450 ML IV SCH (17:00)
[2018-01-29] MEDS: TEMAZEPAM 15 MG CAP PO PRN (21:35)
[2018-01-29 21:57] VITALS: BP_SYST 132; BP_SYST 89; BP_DIAS 57; BP_DIAS 72
[2018-01-30] MEDS: ALBUTEROL SULF 2.5 MG/0.5ML(0.5%) NEB SOLN NEB PRN (01:49)
[2018-01-30] MEDS: LEVOTHYROXINE SODIUM 100 MCG TAB PO SCH (06:09)
[2018-01-30] MEDS: PHENYTOIN SODIUM 100 MG CAP PO SCH ×3 (06:09→22:18)
[2018-01-30] MEDS: IPRATROPIUM BROM 0.5 MG/2.5ML INH SOL NEB SCH ×4 (06:57→18:15)
[2018-01-30] MEDS: ALBUTEROL SULF 2.5 MG/0.5ML(0.5%) NEB SOLN NEB SCH ×4 (06:57→18:15)
[2018-01-30 09:00] VITALS: BP 138/82
[2018-01-30] MEDS: POTASSIUM CHLORIDE 8 MEQ TAB PO SCH (09:45)
[2018-01-30] MEDS: PANTOPRAZOLE 40 MG TAB PO SCH (09:45)
[2018-01-30] MEDS: ASPirin-EC 81 mg tab PO SCH (09:46)
[2018-01-30] MEDS: amLODIPine BESYLATE 5 MG TAB PO SCH (09:46)
[2018-01-30] MEDS: MAGNESIUM OXIDE 400 MG TAB PO SCH (09:46)
[2018-01-30] MEDS: METOPROLOL TARTRATE 25 MG TAB PO SCH ×2 (09:46→22:18)
[2018-01-30] MEDS: DOBUTamine 1000MCG/ML 250 ML IV SCH ×2 (10:00→20:39)
[2018-01-30 10:36] LABS: Albumin 3.4 g/dL (3.4-5.0); BUN/Creatinine Ratio 11.6; Bilirubin, Total 0.9 mg/dL (0.2-1.0); Calcium 8.6 mg/dL (8.5-10.1); Total Protein 7.8 g/dL (6.4-8.2)
[2018-01-30 10:44] LABS: Potassium 2.8 mmol/L (3.5-5.1)
[2018-01-30] MEDS ORDERED: POTASSIUM CHL 20 Meq TABLET PO ONE ×2 (12:00→20:00)
[2018-01-30 13:00] VITALS: BP 137/73
[2018-01-30 17:00] VITALS: BP 120/69
[2018-01-30] MEDS: FUROSEMIDE INJECTION 500 MG in D5W 5% 450 ML IV SCH (17:25)
[2018-01-30] MEDS ORDERED: LIDOCAINE 1% HCL (LOCAL ANESTH.) INJ 20ML MDV ID ONE (19:45)
[2018-01-30 22:00] VITALS: BP 140/77
[2018-01-30] MEDS: TEMAZEPAM 15 MG CAP PO PRN (22:17)
[2018-01-30] MEDS: SODIUM CHLOR 0.9% PF (SALINE LOCK) 10ML VIAL IV SCH (22:23)
[2018-01-31] MEDS: ALBUTEROL SULF 2.5 MG/0.5ML(0.5%) NEB SOLN NEB SCH ×4 (00:42→19:57)
[2018-01-31] MEDS: IPRATROPIUM BROM 0.5 MG/2.5ML INH SOL NEB SCH ×4 (00:42→19:56)
[2018-01-31] MEDS: DOBUTamine 1000MCG/ML 250 ML IV SCH ×3 (03:20→15:45)
[2018-01-31 05:00] VITALS: BP 143/79
[2018-01-31] MEDS: LEVOTHYROXINE SODIUM 100 MCG TAB PO SCH (06:21)
[2018-01-31] MEDS: PHENYTOIN SODIUM 100 MG CAP PO SCH ×3 (06:21→21:30)
[2018-01-31 09:00] VITALS: BP 153/87
[2018-01-31 09:47] VITALS: BP 153/87
[2018-01-31] MEDS: ASPirin-EC 81 mg tab PO SCH (10:08)
[2018-01-31] MEDS: POTASSIUM CHL 20 Meq TABLET PO SCH (10:11)
[2018-01-31] MEDS: POTASSIUM CHLORIDE 8 MEQ TAB PO SCH (10:12)
[2018-01-31] MEDS: METOPROLOL TARTRATE 25 MG TAB PO SCH ×2 (10:14→21:30)
[2018-01-31] MEDS: PANTOPRAZOLE 40 MG TAB PO SCH (10:15)
[2018-01-31] MEDS: MAGNESIUM OXIDE 400 MG TAB PO SCH (10:17)
[2018-01-31] MEDS: amLODIPine BESYLATE 5 MG TAB PO SCH (10:17)
[2018-01-31 11:20] LABS: BUN/Creatinine Ratio 12.4; Potassium 3.2 mmol/L (3.5-5.1)
[2018-01-31] MEDS: SODIUM CHLOR 0.9% PF (SALINE LOCK) 10ML VIAL IV SCH ×2 (12:27→21:30)
[2018-01-31] MEDS ORDERED: POTASSIUM CHL 20 Meq TABLET PO ONE (13:45)
[2018-01-31] MEDS: FUROSEMIDE INJECTION 500 MG in D5W 5% 450 ML IV SCH (15:46)
[2018-01-31 17:00] VITALS: BP 133/89
[2018-01-31] MEDS: TEMAZEPAM 15 MG CAP PO PRN (21:30)
[2018-01-31 22:00] VITALS: BP 151/86
[2018-02-01] MEDS: IPRATROPIUM BROM 0.5 MG/2.5ML INH SOL NEB SCH ×4 (00:33→19:50)
[2018-02-01] MEDS: ALBUTEROL SULF 2.5 MG/0.5ML(0.5%) NEB SOLN NEB SCH ×4 (00:33→19:50)
[2018-02-01 05:00] VITALS: BP 126/88
[2018-02-01] MEDS: LEVOTHYROXINE SODIUM 100 MCG TAB PO SCH (06:26)
[2018-02-01] MEDS: PHENYTOIN SODIUM 100 MG CAP PO SCH ×3 (06:26→22:09)
[2018-02-01 09:00] VITALS: BP 124/78
[2018-02-01] MEDS: SODIUM CHLOR 0.9% PF (SALINE LOCK) 10ML VIAL IV SCH ×2 (10:00→22:01)
[2018-02-01] MEDS: MAGNESIUM OXIDE 400 MG TAB PO SCH (11:42)
[2018-02-01] MEDS: POTASSIUM CHLORIDE 8 MEQ TAB PO SCH (11:43)
[2018-02-01] MEDS: amLODIPine BESYLATE 5 MG TAB PO SCH (11:43)
[2018-02-01] MEDS: POTASSIUM CHL 20 Meq TABLET PO SCH (11:43)
[2018-02-01] MEDS: PANTOPRAZOLE 40 MG TAB PO SCH (11:44)
[2018-02-01] MEDS: METOPROLOL TARTRATE 25 MG TAB PO SCH ×2 (11:44→22:10)
[2018-02-01] MEDS: ASPirin-EC 81 mg tab PO SCH (11:44)
[2018-02-01 13:00] VITALS: BP 144/78
[2018-02-01 16:58] VITALS: BP 130/79
[2018-02-01] MEDS: DOBUTamine 1000MCG/ML 250 ML IV SCH (20:29)
[2018-02-01] MEDS: FUROSEMIDE INJECTION 500 MG in D5W 5% 450 ML IV SCH (20:30)
[2018-02-01] MEDS: TEMAZEPAM 15 MG CAP PO PRN (22:13)
[2018-02-01 22:52] VITALS: BP 133/86
[2018-02-02] MEDS: ALBUTEROL SULF 2.5 MG/0.5ML(0.5%) NEB SOLN NEB PRN (03:25)
[2018-02-02 04:12] VITALS: BP 140/78
[2018-02-02] MEDS ORDERED: DOBUTamine 1000MCG/ML 250 ML IV SCH ×2 (05:30→06:00)
[2018-02-02] MEDS: PHENYTOIN SODIUM 100 MG CAP PO SCH (06:03)
[2018-02-02] MEDS: LEVOTHYROXINE SODIUM 100 MCG TAB PO SCH (06:52)
[2018-02-02] MEDS: ALBUTEROL SULF 2.5 MG/0.5ML(0.5%) NEB SOLN NEB SCH ×3 (07:13→12:01)
[2018-02-02] MEDS: IPRATROPIUM BROM 0.5 MG/2.5ML INH SOL NEB SCH ×3 (07:13→12:01)
[2018-02-02 09:00] VITALS: BP 171/107
[2018-02-02] MEDS: MAGNESIUM OXIDE 400 MG TAB PO SCH (09:21)
[2018-02-02] MEDS: PANTOPRAZOLE 40 MG TAB PO SCH (09:22)
[2018-02-02] MEDS: ASPirin-EC 81 mg tab PO SCH (09:22)
[2018-02-02] MEDS: POTASSIUM CHLORIDE 8 MEQ TAB PO SCH (09:22)
[2018-02-02] MEDS: POTASSIUM CHL 20 Meq TABLET PO SCH (09:22)
[2018-02-02] MEDS: amLODIPine BESYLATE 5 MG TAB PO SCH (09:23)
[2018-02-02] MEDS: METOPROLOL TARTRATE 25 MG TAB PO SCH (09:23)
[2018-02-02] MEDS: SODIUM CHLOR 0.9% PF (SALINE LOCK) 10ML VIAL IV SCH (09:24)
[2018-02-02 12:32] VITALS: BP 132/88
[2018-02-02 13:00] VITALS: BP 125/82
== END 2018-02-02 13:20 | disposition home or self-care (01) | DRG 291 ==
LOC: ER 21:14 → WEST WING 21:15 → TELE-WESTW 01-25 08:12 → WEST WING 01-27 09:41
PROVIDERS: ADMIT Nurse Practitioner Family; ATTEND Internal Medicine Cardiovascular Disease
PROC: 02HV33Z Insertion of Infusion Device into Superior Vena Cava, Percutaneous Approach (ICD-10-PCS; principal; 2018-01-30)
DX: I13.0 Hypertensive heart and chronic kidney disease with heart failure and stage 1 through stage 4 chronic kidney disease, or unspecified chronic kidney disease (principal); I50.43 Acute on chronic combined systolic (congestive) and diastolic (congestive) heart failure; J96.90 Respiratory failure, unspecified, unspecified whether with hypoxia or hypercapnia; J18.9 Pneumonia, unspecified organism; N17.9 Acute kidney failure, unspecified; J44.0 Chronic obstructive pulmonary disease with (acute) lower respiratory infection; I71.2 Thoracic aortic aneurysm, without rupture; E03.9 Hypothyroidism, unspecified; I25.10 Atherosclerotic heart disease of native coronary artery without angina pectoris; E78.5 Hyperlipidemia, unspecified; E87.6 Hypokalemia; F17.210 Nicotine dependence, cigarettes, uncomplicated; I25.5 Ischemic cardiomyopathy; N18.9 Chronic kidney disease, unspecified; R79.1 Abnormal coagulation profile; E78.00 Pure hypercholesterolemia, unspecified; Z79.51 Long term (current) use of inhaled steroids; Z79.899 Other long term (current) drug therapy; Z82.49 Family history of ischemic heart disease and other diseases of the circulatory system; I25.2 Old myocardial infarction; Z95.1 Presence of aortocoronary bypass graft; Z83.3 Family history of diabetes mellitus; Z86.73 Personal history of transient ischemic attack (TIA), and cerebral infarction without residual deficits; Z91.19 Patient's noncompliance with other medical treatment and regimen; Z95.810 Presence of automatic (implantable) cardiac defibrillator; Z98.61 Coronary angioplasty status; Z71.3 Dietary counseling and surveillance
CPT/HCPCS: 36415; 36569; 36600; 71045; 71275; 76700; 80048; 80053; 80185; 82306; 82550; 82565; 82805; 83735; 83880; 84132; 84403; 84443; 84484; 84520; 85025; 85379; 85610; 85730; 87040; 87081; 93005; 93970; 94640; 96365; 96374; 96375; G0463; J1956

== ENCOUNTER → 2018-02-03 | Outpatient (CLI) | payer MEDICARE, MEDICAID ==
[~2018-02-03] VITALS: Ht 165.1 cm; Wt 71.0 kg
[~2018-02-03] MED LIST changes: +CYANOCOBALAMIN (B-12) 1000 MCG/1 ML VIAL IM ONE; +CYANOCOBALAMIN (B-12) 1000 MCG/1 ML VIAL ONE; +POTASSIUM CHL 20 Meq TABLET PO ONE
[2018-02-03 12:58] VITALS: BP 150/82
[2018-02-03 16:28] LABS: Basophils # (auto) 0 uL; Basophils % (auto) 0.2 % (0.0-2.0); Eosinophils # (auto) 0.1 uL; Monocytes # (auto) 0.5 uL; Monocytes % (auto) 7.3 % (0.0-12.0); Neutrophils # (auto) 4.9 uL; Nucleated Red Blood Cells % 0.1 %; White Blood Cell 6.4 10^3/uL (4.4-10.8)
[2018-02-03 16:29] LABS: Eosinophils % (auto) 2.3 % (0.0-7.0); Hematocrit 37.4 % (41.0-53.0); Hemoglobin 12.3 g/dL (13.5-17.5); Lymphocytes # (auto) 0.8 uL; Lymphocytes % (auto) 13.1 % (10.0-50.0); Mean Corpuscular Hemoglobin 26.4 pg (28.0-32.0); Mean Corpuscular Hgb Conc. 32.8 g/dL (32.0-36.0); Mean Corpuscular Volume 80.5 fL (80.0-100.0); Neutrophils % (auto) 77.1 % (37.0-80.0); Platelet Count (auto) 209 10^3/uL (140-450); Red Blood Cells 4.65 10^6/uL (4.5-5.90)
[2018-02-03 16:45] LABS: BUN/Creatinine Ratio 17.1; Calcium 9.1 mg/dL (8.5-10.1); Potassium 3.2 mmol/L (3.5-5.1)
[2018-02-03 17:06] LABS: Red Cell Distribution Width 20.1 % (11.8-14.3)
== END | disposition home or self-care (01) ==
LOC: CHF HDHVI 12:16
PROVIDERS: ATTEND Internal Medicine Cardiovascular Disease
DX: D64.9 Anemia, unspecified (principal); I11.0 Hypertensive heart disease with heart failure; I50.9 Heart failure, unspecified
CPT/HCPCS: 36415; 80048; 83880; 85025; 96372; G0463; J3420

== ENCOUNTER → 2018-02-11 | Outpatient (CLI) | payer MEDICARE, MEDICAID ==
[~2018-02-11] MED LIST changes: -CYANOCOBALAMIN (B-12) 1000 MCG/1 ML VIAL IM ONE; -CYANOCOBALAMIN (B-12) 1000 MCG/1 ML VIAL ONE; +TESTOSTERONE CYPIONATE 200 MG/ML 1ML VIAL IM ONE
[2018-02-11 15:00] VITALS: BP 147/84
[2018-02-11 16:00] LABS: Eosinophils # (auto) 0.2 uL; Hemoglobin 11.3 g/dL (13.5-17.5); Lymphocytes % (auto) 17.7 % (10.0-50.0); Monocytes # (auto) 0.5 uL; Nucleated Red Blood Cells % 0.1 %
[2018-02-11 16:04] LABS: Basophils # (auto) 0.1 uL; Basophils % (auto) 0.7 % (0.0-2.0); Hematocrit 34.7 % (41.0-53.0); Lymphocytes # (auto) 1.5 uL; Mean Corpuscular Hgb Conc. 32.7 g/dL (32.0-36.0); Mean Corpuscular Volume 82.6 fL (80.0-100.0); Monocytes % (auto) 5.4 % (0.0-12.0); Neutrophils # (auto) 6.3 uL; Neutrophils % (auto) 74.2 % (37.0-80.0); Platelet Count (auto) 181 10^3/uL (140-450); White Blood Cell 8.5 10^3/uL (4.4-10.8)
[2018-02-11 16:06] LABS: Red Cell Distribution Width 20.9 % (11.8-14.3)
[2018-02-11 16:17] LABS: BUN/Creatinine Ratio 12.6; Calcium 8.6 mg/dL (8.5-10.1); Potassium 3.7 mmol/L (3.5-5.1)
== END | disposition home or self-care (01) ==
LOC: CHF HDHVI 14:26
PROVIDERS: ATTEND Internal Medicine Cardiovascular Disease
DX: I11.0 Hypertensive heart disease with heart failure (principal); I50.43 Acute on chronic combined systolic (congestive) and diastolic (congestive) heart failure; I25.10 Atherosclerotic heart disease of native coronary artery without angina pectoris; E29.1 Testicular hypofunction
CPT/HCPCS: 36415; 80048; 85025; 93701; 96372; G0463; J1071

== ENCOUNTER → 2018-02-13 | Outpatient (CLI) | payer MEDICARE, MEDICAID ==
[~2018-02-13] MED LIST changes: -TESTOSTERONE CYPIONATE 200 MG/ML 1ML VIAL IM ONE
[2018-02-13 11:30] VITALS: BP_SYST 157; BP_SYST 164; BP_DIAS 80; BP_DIAS 88
== END | disposition home or self-care (01) ==
LOC: CHF HDHVI 11:14
PROVIDERS: ATTEND Internal Medicine Cardiovascular Disease
DX: I13.0 Hypertensive heart and chronic kidney disease with heart failure and stage 1 through stage 4 chronic kidney disease, or unspecified chronic kidney disease (principal); E11.22 Type 2 diabetes mellitus with diabetic chronic kidney disease; I50.9 Heart failure, unspecified; N18.9 Chronic kidney disease, unspecified; I73.9 Peripheral vascular disease, unspecified; J44.9 Chronic obstructive pulmonary disease, unspecified; E29.1 Testicular hypofunction; F17.219 Nicotine dependence, cigarettes, with unspecified nicotine-induced disorders; Z79.51 Long term (current) use of inhaled steroids; Z79.899 Other long term (current) drug therapy
CPT/HCPCS: G0463

== ENCOUNTER → 2018-02-20 | Outpatient (CLI) | payer MEDICARE, MEDICAID ==
[~2018-02-20] MED LIST changes: -POTASSIUM CHL 20 Meq TABLET PO ONE
[2018-02-20 11:15] VITALS: BP 113/75
[2018-02-20 12:00] VITALS: BP 125/82
[2018-02-20 16:14] LABS: Potassium 4.1 mmol/L (3.5-5.1)
[2018-02-20 16:49] LABS: Basophils # (auto) 0.1 uL; Basophils % (auto) 0.7 % (0.0-2.0); Eosinophils # (auto) 0.3 uL; Eosinophils % (auto) 3.8 % (0.0-7.0); Hematocrit 43.3 % (41.0-53.0); Hemoglobin 14.2 g/dL (13.5-17.5); Lymphocytes # (auto) 1.4 uL; Lymphocytes % (auto) 19.5 % (10.0-50.0); Mean Corpuscular Hemoglobin 27.3 pg (28.0-32.0); Mean Corpuscular Hgb Conc. 32.8 g/dL (32.0-36.0); Mean Corpuscular Volume 83.4 fL (80.0-100.0); Monocytes # (auto) 0.7 uL; Neutrophils # (auto) 4.7 uL; Nucleated Red Blood Cells % 0.3 %; Platelet Count (auto) 224 10^3/uL (140-450); White Blood Cell 7.1 10^3/uL (4.4-10.8)
[2018-02-20 16:51] LABS: Red Cell Distribution Width 21.9 % (11.8-14.3)
== END | disposition home or self-care (01) ==
LOC: CHF HDHVI 11:25
PROVIDERS: ATTEND Internal Medicine Cardiovascular Disease
DX: I13.0 Hypertensive heart and chronic kidney disease with heart failure and stage 1 through stage 4 chronic kidney disease, or unspecified chronic kidney disease (principal); E11.22 Type 2 diabetes mellitus with diabetic chronic kidney disease; N18.3 Chronic kidney disease, stage 3 (moderate); I50.23 Acute on chronic systolic (congestive) heart failure; D64.9 Anemia, unspecified; J44.9 Chronic obstructive pulmonary disease, unspecified; F17.200 Nicotine dependence, unspecified, uncomplicated; Z79.51 Long term (current) use of inhaled steroids
CPT/HCPCS: 36415; 82565; 82607; 83735; 83880; 84132; 84520; 85025; G0463

== ENCOUNTER → 2018-03-13 | Outpatient (CLI) | payer MEDICARE, MEDICAID ==
[~2018-03-13] MED LIST changes: +CYANOCOBALAMIN (B-12) 1000 MCG/1 ML VIAL IM ONE; +CYANOCOBALAMIN (B-12) 1000 MCG/1 ML VIAL ONE; +FUROSEMIDE 40 MG/4 ML VIAL IV ONE; +FUROSEMIDE 40 MG/4 ML VIAL ONE; +POTASSIUM CHL 20 Meq TABLET PO ONE
[2018-03-13 13:15] VITALS: BP 152/92
[2018-03-13 14:43] VITALS: BP 144/89
[2018-03-13 16:06] LABS: BUN/Creatinine Ratio 9.4; Potassium 3.8 mmol/L (3.5-5.1)
== END | disposition home or self-care (01) ==
LOC: CHF HDHVI 13:21
PROVIDERS: ATTEND Internal Medicine Cardiovascular Disease
DX: I13.0 Hypertensive heart and chronic kidney disease with heart failure and stage 1 through stage 4 chronic kidney disease, or unspecified chronic kidney disease (principal); E11.22 Type 2 diabetes mellitus with diabetic chronic kidney disease; I50.43 Acute on chronic combined systolic (congestive) and diastolic (congestive) heart failure; N18.3 Chronic kidney disease, stage 3 (moderate); J44.9 Chronic obstructive pulmonary disease, unspecified; I25.10 Atherosclerotic heart disease of native coronary artery without angina pectoris; D64.9 Anemia, unspecified; F17.210 Nicotine dependence, cigarettes, uncomplicated; I25.2 Old myocardial infarction; Z86.73 Personal history of transient ischemic attack (TIA), and cerebral infarction without residual deficits; Z95.810 Presence of automatic (implantable) cardiac defibrillator
CPT/HCPCS: 36415; 80048; 82306; 83880; 93701; 96372; 96374; G0463; J1940; J3420

== ENCOUNTER 2018-03-16 23:40 | Emergency (ER) | payer MEDICARE, MEDICAID ==
[~2018-03-16] VITALS: Ht 175.3 cm; Wt 74.4 kg
[~2018-03-16 23:40] MED LIST changes: -CYANOCOBALAMIN (B-12) 1000 MCG/1 ML VIAL IM ONE; -CYANOCOBALAMIN (B-12) 1000 MCG/1 ML VIAL ONE; -FUROSEMIDE 40 MG/4 ML VIAL IV ONE; -FUROSEMIDE 40 MG/4 ML VIAL ONE; -POTASSIUM CHL 20 Meq TABLET PO ONE
[2018-03-16 23:50] VITALS: BP 124/79
[2018-03-17 00:53] LABS: Basophils # (auto) 0 uL; Basophils % (auto) 0.2 % (0.0-2.0); Eosinophils # (auto) 0 uL; Eosinophils % (auto) 0.3 % (0.0-7.0); Hematocrit 43.2 % (41.0-53.0); Hemoglobin 14.2 g/dL (13.5-17.5); Lymphocytes # (auto) 1.3 uL; Mean Corpuscular Hemoglobin 27.5 pg (28.0-32.0); Mean Corpuscular Hgb Conc. 32.8 g/dL (32.0-36.0); Mean Corpuscular Volume 83.9 fL (80.0-100.0); Monocytes # (auto) 1.2 uL; Monocytes % (auto) 8.1 % (0.0-12.0); Neutrophils # (auto) 12.1 uL; Neutrophils % (auto) 82.4 % (37.0-80.0); Platelet Count (auto) 245 10^3/uL (140-450); Red Blood Cells 5.14 10^6/uL (4.5-5.90); White Blood Cell 14.7 10^3/uL (4.4-10.8)
[2018-03-17 01:11] LABS: INR 0.98 (0.9-1.15); Partial Thromboplastin Time 28.2 sec (22.64-33.71); Prothrombin Time 10.7 sec (9.37-12.3)
[2018-03-17 01:15] LABS: Alanine Aminotransferase 59 U/L (16-61); Albumin 3.2 g/dL (3.4-5.0); Anion Gap 12 (5-15); Aspartate Aminotransferase 53 U/L (15-37); BUN/Creatinine Ratio 13.1; Blood Urea Nitrogen 25 mg/dL (7-18); Calcium 8.7 mg/dL (8.5-10.1); Carbon Dioxide 21 mmol/L (21-32); Chloride 102 mmol/L (98-107); GFR African American 46 mL/min; GFR Non-African American 38 mL/min; Glucose 105 mg/dL (74-106); Magnesium 1.9 mg/dL (1.6-2.6); Potassium 4.2 mmol/L (3.5-5.1); Sodium 135 mmol/L (136-145)
[2018-03-17 01:20] LABS: Alkaline Phosphatase 126 U/L (45-117); Bilirubin, Total 0.4 mg/dL (0.2-1.0)
== END 2018-03-17 04:42 | disposition left against medical advice (07) ==
LOC: EDBD 23:40 → EDSEX 23:40 → ER 23:40
DX: R53.1 Weakness (principal); Z86.73 Personal history of transient ischemic attack (TIA), and cerebral infarction without residual deficits; Z95.0 Presence of cardiac pacemaker; Z53.21 Procedure and treatment not carried out due to patient leaving prior to being seen by health care provider
CPT/HCPCS: 36415; 70450; 71045; 80053; 83036; 83735; 83880; 84484; 85025; 85610; 85730; 93005

== ENCOUNTER → 2018-03-27 | Outpatient (CLI) | payer MEDICARE, MEDICAID ==
[~2018-03-27] VITALS: Ht 1 cm; Wt 0.5 kg
[~2018-03-27] MED LIST changes: +FUROSEMIDE 40 MG/4 ML VIAL IV ONE; +FUROSEMIDE 40 MG/4 ML VIAL ONE; +POTASSIUM CHL 20 Meq TABLET PO ONE
[2018-03-27 09:30] VITALS: BP 162/99
[2018-03-27 10:55] VITALS: BP 143/96
[2018-03-27 12:19] LABS: Basophils # (auto) 0 uL; Basophils % (auto) 0.5 % (0.0-2.0); Eosinophils # (auto) 0.1 uL; Eosinophils % (auto) 1.9 % (0.0-7.0); Hematocrit 44.3 % (41.0-53.0); Hemoglobin 14.9 g/dL (13.5-17.5); Lymphocytes # (auto) 2.1 uL; Mean Corpuscular Hgb Conc. 33.6 g/dL (32.0-36.0); Mean Corpuscular Volume 83.3 fL (80.0-100.0); Monocytes # (auto) 0.6 uL; Monocytes % (auto) 7.5 % (0.0-12.0); Neutrophils % (auto) 63.1 % (37.0-80.0); Nucleated Red Blood Cells % 0.1 %; Platelet Count (auto) 301 10^3/uL (140-450); Red Blood Cells 5.32 10^6/uL (4.5-5.90); White Blood Cell 7.9 10^3/uL (4.4-10.8)
[2018-03-27 12:35] LABS: Red Cell Distribution Width 20.1 % (11.8-14.3)
[2018-03-27 12:49] LABS: Albumin 3.1 g/dL (3.4-5.0); BUN/Creatinine Ratio 10.7; Bilirubin, Total 0.2 mg/dL (0.2-1.0); Magnesium 2.4 mg/dL (1.6-2.6); Potassium 3.6 mmol/L (3.5-5.1); Total Protein 7.9 g/dL (6.4-8.2)
== END | disposition home or self-care (01) ==
LOC: CHF HDHVI 09:47
PROVIDERS: ATTEND Internal Medicine Cardiovascular Disease
DX: I13.0 Hypertensive heart and chronic kidney disease with heart failure and stage 1 through stage 4 chronic kidney disease, or unspecified chronic kidney disease (principal); E11.22 Type 2 diabetes mellitus with diabetic chronic kidney disease; N18.3 Chronic kidney disease, stage 3 (moderate); I50.23 Acute on chronic systolic (congestive) heart failure; D64.9 Anemia, unspecified; E87.70 Fluid overload, unspecified; M79.672 Pain in left foot; I25.10 Atherosclerotic heart disease of native coronary artery without angina pectoris; J44.9 Chronic obstructive pulmonary disease, unspecified; E03.9 Hypothyroidism, unspecified; I25.2 Old myocardial infarction; E78.00 Pure hypercholesterolemia, unspecified; D63.8 Anemia in other chronic diseases classified elsewhere; F17.210 Nicotine dependence, cigarettes, uncomplicated; Z86.73 Personal history of transient ischemic attack (TIA), and cerebral infarction without residual deficits; Z87.01 Personal history of pneumonia (recurrent); Z79.51 Long term (current) use of inhaled steroids; Z79.899 Other long term (current) drug therapy; Z98.61 Coronary angioplasty status; Z95.0 Presence of cardiac pacemaker; Z95.1 Presence of aortocoronary bypass graft; Z79.82 Long term (current) use of aspirin; Z68.32 Body mass index [BMI] 32.0-32.9, adult
CPT/HCPCS: 36415; 73630; 80053; 83735; 83880; 85025; 96374; G0463; J1940

== ENCOUNTER → 2018-09-23 | Outpatient (CLI) | payer MEDICARE ==
[~2018-09-23] MED LIST changes: +AMLO10TA12 PO; -AMLO10TA2 PO; +CYANOCOBALAMIN (B-12) 1000 MCG/1 ML VIAL IM ONE; +CYANOCOBALAMIN (B-12) 1000 MCG/1 ML VIAL ONE; -FUROSEMIDE 40 MG/4 ML VIAL IV ONE; -FUROSEMIDE 40 MG/4 ML VIAL ONE; -POTASSIUM CHL 20 Meq TABLET PO ONE
[2018-09-23 11:10] VITALS: BP 136/74
[2018-09-23 12:25] LABS: Urine Blood Negative /uL (Negative); Urine Specific Gravity 1.032 (1.001-1.035)
[2018-09-23 12:26] LABS: Basophils # (auto) 0 uL; Basophils % (auto) 0.6 % (0.0-2.0); Eosinophils # (auto) 0.1 uL; Eosinophils % (auto) 1.8 % (0.0-7.0); Hematocrit 41.8 % (41.0-53.0); Hemoglobin 14.2 g/dL (13.5-17.5); Lymphocytes % (auto) 26.7 % (10.0-50.0); Mean Corpuscular Hemoglobin 29.9 pg (28.0-32.0); Mean Corpuscular Volume 88.1 fL (80.0-100.0); Monocytes # (auto) 0.6 uL; Monocytes % (auto) 7.9 % (0.0-12.0); Neutrophils # (auto) 4.7 uL; Nucleated Red Blood Cells % 0.2 %; Platelet Count (auto) 232 10^3/uL (140-450); Red Blood Cells 4.75 10^6/uL (4.5-5.90); Red Cell Distribution Width 17.3 % (11.8-14.3); White Blood Cell 7.5 10^3/uL (4.4-10.8)
[2018-09-23 12:54] LABS: Potassium 3.6 mmol/L (3.5-5.1)
[2018-09-23 12:58] LABS: Prostate Specific Antigen 0.53 ng/mL (0.0-4.0)
[2018-09-23 13:01] LABS: Albumin 3.4 g/dL (3.4-5.0); BUN/Creatinine Ratio 10.6; Bilirubin, Direct 0.1 mg/dL (0-0.2); Bilirubin, Total 0.5 mg/dL (0.2-1.0); Calcium 8.9 mg/dL (8.5-10.1); Magnesium 2.4 mg/dL (1.6-2.6); Total Protein 8.1 g/dL (6.4-8.2)
== END | disposition home or self-care (01) ==
LOC: CHF HDHVI 09:49
PROVIDERS: ATTEND Internal Medicine Cardiovascular Disease
DX: E83.40 Disorders of magnesium metabolism, unspecified (principal); D51.9 Vitamin B12 deficiency anemia, unspecified; E78.5 Hyperlipidemia, unspecified; E03.9 Hypothyroidism, unspecified; E55.9 Vitamin D deficiency, unspecified; C61 Malignant neoplasm of prostate; E29.1 Testicular hypofunction; N39.0 Urinary tract infection, site not specified; R06.02 Shortness of breath; I13.0 Hypertensive heart and chronic kidney disease with heart failure and stage 1 through stage 4 chronic kidney disease, or unspecified chronic kidney disease; I50.43 Acute on chronic combined systolic (congestive) and diastolic (congestive) heart failure; E11.22 Type 2 diabetes mellitus with diabetic chronic kidney disease; D63.8 Anemia in other chronic diseases classified elsewhere; J44.0 Chronic obstructive pulmonary disease with (acute) lower respiratory infection; N18.3 Chronic kidney disease, stage 3 (moderate); I25.2 Old myocardial infarction; E78.00 Pure hypercholesterolemia, unspecified; Z87.891 Personal history of nicotine dependence; Z79.899 Other long term (current) drug therapy; Z86.73 Personal history of transient ischemic attack (TIA), and cerebral infarction without residual deficits; Z95.810 Presence of automatic (implantable) cardiac defibrillator; Z79.82 Long term (current) use of aspirin; Z79.51 Long term (current) use of inhaled steroids; Z68.32 Body mass index [BMI] 32.0-32.9, adult; Z95.1 Presence of aortocoronary bypass graft; Z87.01 Personal history of pneumonia (recurrent); Z95.0 Presence of cardiac pacemaker
CPT/HCPCS: 36415; 80048; 80061; 80076; 81003; 82306; 82607; 83036; 83735; 84153; 84403; 84443; 85025; 93701; 94618; 96372; G0463; J3420

== ENCOUNTER → 2018-10-01 | Outpatient (CLI) | payer MEDICARE ==
[~2018-10-01] MED LIST changes: -CYANOCOBALAMIN (B-12) 1000 MCG/1 ML VIAL IM ONE; -CYANOCOBALAMIN (B-12) 1000 MCG/1 ML VIAL ONE
== END | disposition home or self-care (01) ==
LOC: Rad HDHVI 12:53
PROVIDERS: ATTEND Internal Medicine Cardiovascular Disease
DX: I70.291 Other atherosclerosis of native arteries of extremities, right leg (principal); I34.0 Nonrheumatic mitral (valve) insufficiency; I25.5 Ischemic cardiomyopathy; I11.0 Hypertensive heart disease with heart failure; I50.23 Acute on chronic systolic (congestive) heart failure
CPT/HCPCS: 93306; 93926

== ENCOUNTER → 2018-11-18 | Outpatient (CLI) | payer MEDICARE ==
[~2018-11-18] MED LIST changes: +CYANOCOBALAMIN (B-12) 1000 MCG/1 ML VIAL IM ONE; +CYANOCOBALAMIN (B-12) 1000 MCG/1 ML VIAL ONE; +cloNIDine HCL 0.1 MG TAB ONE; +cloNIDine HCL 0.1 MG TAB PO ONE
--- NOTE | 2018-11-18 13:05 | NUR ---
PT. TO CHF CLINIC AFTER 2 MONTH ABSENCE, WITH HX OF CONTINUED NON-COMPLIANCE WITH MEDICATION,SMOKING CESSATION AND OVERALL HYGIENE. PT. PRESENTS TO CLINIC AFTER HAVING HIS NUCLEAR STRESS TEST CANCELLED DUE TO DRINKING CAFFEINE AFTER PREVIOUS INSTRUCTIONS TO AVOID X 24 HRS. PT. HAS NOT TAKEN ANY OF HIS MEDS TODAY AND STATES HE ONLY TAKES MEDS ONE TIME A DAY BECAUSE HE SLEEPS IN LATE. B/P ELEVATED AT 177/125, PULSE 96 AND REGULAR, RR 20 SATS 96% ON RA. STRONG EDUCATION GIVEN ON DISEASE PROCESS, STROKE HX, HYPERTENSIVE CRISIS AND MEDICATION COMPLIANCE GIVEN, WITH MD ORDERS RECEIVED AND CARRIED OUT.
--- NOTE | 2018-11-18 13:40 | NUR ---
MEDS: PT MEDICATED WITH CLONIDINE 0.2MG PO PER MD ORDER. B/P 179/118
--- NOTE | 2018-11-18 13:50 | NUR ---
MEDS: PT. MEDICATED WITH VIT. B12 1000MCG IM LFT DELT. PER MD ORDER.
[2018-11-18 14:30] VITALS: BP 128/92
--- NOTE | 2018-11-18 14:30 | NUR ---
Discharge Instructions See e-MAR for any mediations given with this visit. Patient education given on disease process. Patient verbalized understanding. Previous labs reviewed. Patient discharged in stable condition with after care instructions and follow up appointment. PT. TO BRING ALL MEDS TO CLINIC NEXT WEEK FOR FURTHER EVAL AND MED RC.
[2018-11-18 16:15] LABS: Calcium 8.5 mg/dL (8.5-10.1); Magnesium 2.2 mg/dL (1.6-2.6); Potassium 3.3 mmol/L (3.5-5.1)
[2018-11-18 16:17] LABS: BUN/Creatinine Ratio 10.2
[2018-11-18 16:47] LABS: Basophils # (auto) 0 uL; Basophils % (auto) 0.4 % (0.0-2.0); Eosinophils # (auto) 0.1 uL; Eosinophils % (auto) 0.9 % (0.0-7.0); Hematocrit 43.7 % (41.0-53.0); Hemoglobin 14.8 g/dL (13.5-17.5); Lymphocytes # (auto) 1.6 uL; Lymphocytes % (auto) 22.6 % (10.0-50.0); Mean Corpuscular Hemoglobin 29.5 pg (28.0-32.0); Mean Corpuscular Volume 86.9 fL (80.0-100.0); Monocytes # (auto) 0.6 uL; Neutrophils # (auto) 4.8 uL; Neutrophils % (auto) 67.1 % (37.0-80.0); Nucleated Red Blood Cells % 0.2 %; Platelet Count (auto) 198 10^3/uL (140-450); Red Blood Cells 5.03 10^6/uL (4.5-5.90); Red Cell Distribution Width 16.2 % (11.8-14.3); White Blood Cell 7.1 10^3/uL (4.4-10.8)
== END | disposition home or self-care (01) ==
LOC: Rad HDHVI 13:15
PROVIDERS: ATTEND Internal Medicine Cardiovascular Disease
DX: D51.9 Vitamin B12 deficiency anemia, unspecified (principal); I13.0 Hypertensive heart and chronic kidney disease with heart failure and stage 1 through stage 4 chronic kidney disease, or unspecified chronic kidney disease; I50.42 Chronic combined systolic (congestive) and diastolic (congestive) heart failure; E11.22 Type 2 diabetes mellitus with diabetic chronic kidney disease; N18.3 Chronic kidney disease, stage 3 (moderate); E11.51 Type 2 diabetes mellitus with diabetic peripheral angiopathy without gangrene; I25.10 Atherosclerotic heart disease of native coronary artery without angina pectoris; J44.9 Chronic obstructive pulmonary disease, unspecified; I25.5 Ischemic cardiomyopathy; E03.9 Hypothyroidism, unspecified; I25.2 Old myocardial infarction; E78.5 Hyperlipidemia, unspecified; I70.0 Atherosclerosis of aorta; E78.00 Pure hypercholesterolemia, unspecified; I08.1 Rheumatic disorders of both mitral and tricuspid valves; I71.2 Thoracic aortic aneurysm, without rupture; I27.21 Secondary pulmonary arterial hypertension; I48.91 Unspecified atrial fibrillation; G40.909 Epilepsy, unspecified, not intractable, without status epilepticus; M19.90 Unspecified osteoarthritis, unspecified site; G47.33 Obstructive sleep apnea (adult) (pediatric); K21.9 Gastro-esophageal reflux disease without esophagitis; E44.0 Moderate protein-calorie malnutrition; E83.40 Disorders of magnesium metabolism, unspecified; F32.9 Major depressive disorder, single episode, unspecified; F12.11 Cannabis abuse, in remission; Z85.46 Personal history of malignant neoplasm of prostate; Z86.73 Personal history of transient ischemic attack (TIA), and cerebral infarction without residual deficits; Z79.82 Long term (current) use of aspirin; Z79.51 Long term (current) use of inhaled steroids; Z79.899 Other long term (current) drug therapy; Z95.1 Presence of aortocoronary bypass graft; Z95.810 Presence of automatic (implantable) cardiac defibrillator; Z95.5 Presence of coronary angioplasty implant and graft; Z87.891 Personal history of nicotine dependence
CPT/HCPCS: 36415; 80048; 83735; 83880; 85025; 96372; G0463; J3420

== ENCOUNTER → 2018-11-25 | Outpatient (CLI) | payer MEDICARE ==
[~2018-11-25] MED LIST changes: -CYANOCOBALAMIN (B-12) 1000 MCG/1 ML VIAL IM ONE; -CYANOCOBALAMIN (B-12) 1000 MCG/1 ML VIAL ONE; +POTASSIUM CHL 10 Meq TABLET PO ONE; +POTASSIUM CHL 20 Meq TABLET PO ONE; -cloNIDine HCL 0.1 MG TAB ONE; -cloNIDine HCL 0.1 MG TAB PO ONE
--- NOTE | 2018-11-25 12:55 | NUR ---
CHF PT TO CHF CLINIC FOR MD JIMENEZ ORDERED CARDIODYNAMICS, 6MW AND LABS . POTASSIUM CHLORIDE 20 MEQ PO ORDERED FOR HYPOKALEMIA.
[2018-11-25 13:50] VITALS: BP 145/88
--- NOTE | 2018-11-25 13:50 | NUR ---
CHF Discharge Instructions See e-MAR for any mediations given with this visit. Patient education given on disease process. Patient verbalized understanding. Previous labs reviewed. Patient discharged in stable condition with after care instructions and follow up appointment. STRESS TEST SCHEDULED FOR 12/09/18. F/U / TONY DEC, 2018
[2018-11-25 15:46] LABS: Potassium 3.4 mmol/L (3.5-5.1)
== END | disposition home or self-care (01) ==
LOC: CHF HDHVI 12:55
PROVIDERS: ATTEND Internal Medicine Cardiovascular Disease
DX: I11.0 Hypertensive heart disease with heart failure (principal); I50.9 Heart failure, unspecified; R94.4 Abnormal results of kidney function studies; E87.6 Hypokalemia; J44.9 Chronic obstructive pulmonary disease, unspecified
CPT/HCPCS: 36415; 82565; 83880; 84132; 84520; 93701; 94618; G0463

== ENCOUNTER → 2018-12-02 | Outpatient (CLI) | payer MEDICARE ==
--- NOTE | 2018-12-02 11:30 | NUR ---
CHF PT TO CHF CLINIC FOR MD JIMENEZ ORDERED CHF REEVAL, LAB DRAWN BUN ,CREAT,K. AND POTASSIUM CHLORIDE 20MEQ PO. FOR HYPOKALEMIA.
--- NOTE | 2018-12-02 12:00 | NUR ---
CHF Discharge Instructions See e-MAR for any mediations given with this visit. TAKE YOUR DIURETIC WHEN YOU GET HOME PT DIDNT TAKE IT BEFORE HIS VISIT TODAY. F/U STRESS TEST 12/09/18 AND F/U DR. JIMENEZ 12/30 Patient education given on disease process. Patient verbalized understanding. Previous labs reviewed. Patient discharged in stable condition with after care instructions and follow up appointment. FOLLOW UP
[2018-12-02 12:06] VITALS: BP 118/79
[2018-12-02 16:20] LABS: Potassium 3.4 mmol/L (3.5-5.1)
== END | disposition home or self-care (01) ==
LOC: CHF HDHVI 11:30
PROVIDERS: ATTEND Internal Medicine Cardiovascular Disease
DX: E87.6 Hypokalemia (principal); R94.4 Abnormal results of kidney function studies
CPT/HCPCS: 36415; 82565; 84132; 84520; G0463

== ENCOUNTER → 2018-12-09 | Outpatient (CLI) | payer MEDICARE ==
[~2018-12-09] VITALS: Ht 175.3 cm; Wt 87.5 kg
[~2018-12-09] MED LIST changes: +ADENOSINE 73 MG in GIVE UN-DILUTED 0 ML IV ONE; +ASP81EC PO; +METO-169 PO; +POTA8TAB2 PO; -POTASSIUM CHL 10 Meq TABLET PO ONE; +SACU1TAB7 PO; +SODIUM CHLORIDE 0.9% 250 ML IV ONE; +TRIA75TA55 PO; +UMEC1AER IN
--- NOTE | 2018-12-09 12:30 | NUR ---
CHF PT TO CHF CLINIC C/O DIZZINESS AND ELEVATED BLOOD PRESSURE. PT HAS SCHEDULED STRESS TEST AT 1330.
--- NOTE | 2018-12-09 13:00 | NUR ---
CHF PT STATES TOOK ALL AM MEDS, BUT HASN'T HAD ANYTHING TO EAT SINCE YESTERDAY AT 6 PM. REVIEW OF PT LABS SHOW HYPOKALEMIA. DR. JIMENEZ SAID GIVE 40 MEQ PO POTASSIUM CHLORIDE AFTER STRESS TEST WITH A ENSURE.
--- NOTE | 2018-12-09 13:45 | NUR ---
CHF PT PASSED OUT IN STRESS ROOM , IV STARTED NS 250ML BOLUS STARTED. ICE PACKS TO BACK OF NECK BP 80/59, SKIN DIAPHORETIC AND ASHY. LE ELEVATED. STERNAL RUBS AND PAIN STIMULI RETURNED PT TO ALTERED BUT AWAKE STAE IN APPROX 2MIN. PT TOTALLY COHERANT AT 5 MIN KRIS. PT WAS INCONTINENT.
--- NOTE | 2018-12-09 14:00 | NUR ---
CHF NS BOLUS COMPLETE. V/S 128/63, HR 80, SAT 96 WITH 0/2 QT 2LPM. O/2 REMOVED AND STRESS TEST WAS CONTINUED WITHOUT EVENT.
[2018-12-09 14:45] VITALS: BP 124/78
--- NOTE | 2018-12-09 14:45 | NUR ---
CHF 1440 POTASSIUM CHLORIDE 40 MEQ PO ADMINISTERED WITH AN ENSURE. PT STATES FEELS GOOD. V/S Discharge Instructions See e-MAR for any mediations given with this visit. Patient education given on disease process. Patient verbalized understanding. Previous labs reviewed. Patient discharged in stable condition with after care instructions and follow up appointment.
[2018-12-09 16:15] LABS: BUN/Creatinine Ratio 14.9; Calcium 9.3 mg/dL (8.5-10.1); Magnesium 2.4 mg/dL (1.6-2.6); Potassium 4.1 mmol/L (3.5-5.1)
[2018-12-09 16:38] LABS: Basophils # (auto) 0 uL; Basophils % (auto) 0.4 % (0.0-2.0); Eosinophils # (auto) 0.1 uL; Eosinophils % (auto) 0.6 % (0.0-7.0); Hematocrit 43.7 % (41.0-53.0); Hemoglobin 14.9 g/dL (13.5-17.5); Lymphocytes # (auto) 2.6 uL; Mean Corpuscular Hemoglobin 29.4 pg (28.0-32.0); Mean Corpuscular Hgb Conc. 34.1 g/dL (32.0-36.0); Mean Corpuscular Volume 86.3 fL (80.0-100.0); Monocytes % (auto) 7.6 % (0.0-12.0); Neutrophils # (auto) 8.8 uL; Neutrophils % (auto) 70.4 % (37.0-80.0); Platelet Count (auto) 252 10^3/uL (140-450); Red Blood Cells 5.06 10^6/uL (4.5-5.90); Red Cell Distribution Width 16.4 % (11.8-14.3); White Blood Cell 12.5 10^3/uL (4.4-10.8)
== END | disposition home or self-care (01) ==
LOC: Rad HDHVI 11:28
PROVIDERS: ATTEND Internal Medicine Cardiovascular Disease
DX: G40.89 Other seizures (principal); I13.0 Hypertensive heart and chronic kidney disease with heart failure and stage 1 through stage 4 chronic kidney disease, or unspecified chronic kidney disease; E11.22 Type 2 diabetes mellitus with diabetic chronic kidney disease; I50.23 Acute on chronic systolic (congestive) heart failure; I50.32 Chronic diastolic (congestive) heart failure; N18.3 Chronic kidney disease, stage 3 (moderate); R42 Dizziness and giddiness; R55 Syncope and collapse; E03.9 Hypothyroidism, unspecified; I25.5 Ischemic cardiomyopathy; C44.91 Basal cell carcinoma of skin, unspecified; J42 Unspecified chronic bronchitis; E78.6 Lipoprotein deficiency; N28.9 Disorder of kidney and ureter, unspecified; I25.10 Atherosclerotic heart disease of native coronary artery without angina pectoris; I48.91 Unspecified atrial fibrillation; I25.2 Old myocardial infarction; I27.21 Secondary pulmonary arterial hypertension; K21.9 Gastro-esophageal reflux disease without esophagitis; E78.5 Hyperlipidemia, unspecified; G47.33 Obstructive sleep apnea (adult) (pediatric); E78.00 Pure hypercholesterolemia, unspecified; E11.51 Type 2 diabetes mellitus with diabetic peripheral angiopathy without gangrene; M10.9 Gout, unspecified; E44.0 Moderate protein-calorie malnutrition; M19.90 Unspecified osteoarthritis, unspecified site; Z86.718 Personal history of other venous thrombosis and embolism; Z87.891 Personal history of nicotine dependence; Z87.440 Personal history of urinary (tract) infections; Z79.899 Other long term (current) drug therapy; Z79.4 Long term (current) use of insulin; Z79.82 Long term (current) use of aspirin; Z95.810 Presence of automatic (implantable) cardiac defibrillator; Z95.1 Presence of aortocoronary bypass graft; Z85.46 Personal history of malignant neoplasm of prostate
CPT/HCPCS: 36415; 78452; 80048; 80185; 83735; 84443; 85025; 93005; 96374; 96375; A9500; G0463; J0153; J7050; 96360

== ENCOUNTER → 2018-12-31 | Outpatient (CLI) | payer MEDICARE ==
[~2018-12-31] MED LIST changes: -ADENOSINE 73 MG in GIVE UN-DILUTED 0 ML IV ONE; -ASP81EC PO; +CYANOCOBALAMIN (B-12) 1000 MCG/1 ML VIAL IM ONE; +CYANOCOBALAMIN (B-12) 1000 MCG/1 ML VIAL ONE; -METO-169 PO; -POTA8TAB2 PO; -POTASSIUM CHL 20 Meq TABLET PO ONE; -SODIUM CHLORIDE 0.9% 250 ML IV ONE; -TRIA75TA55 PO; -UMEC1AER IN
--- NOTE | 2018-12-31 11:38 | NUR ---
CHF PT TO CHF CLINIC FOR CHF REEVAL AND MD JIMENEZ ORDERED CARDIODYNAMICS, ,LABS AND VIT B 12 INJECTION 1000MCG.
[2018-12-31 13:00] VITALS: BP 147/87
--- NOTE | 2018-12-31 13:00 | NUR ---
CHF Discharge Instructions See e-MAR for any mediations given with this visit. VIT B 12 1000MCG R DELTOID. Patient education given on disease process. Patient verbalized understanding. Previous labs reviewed. Patient discharged in stable condition with after care instructions and follow up appointment.
[2018-12-31 16:18] LABS: Magnesium 2.2 mg/dL (1.6-2.6); Potassium 3.9 mmol/L (3.5-5.1)
[2018-12-31 16:33] LABS: Basophils # (auto) 0 uL; Basophils % (auto) 0.6 % (0.0-2.0); Eosinophils # (auto) 0.1 uL; Eosinophils % (auto) 1.3 % (0.0-7.0); Hematocrit 44.6 % (41.0-53.0); Lymphocytes # (auto) 2.1 uL; Lymphocytes % (auto) 27.2 % (10.0-50.0); Mean Corpuscular Hemoglobin 30.2 pg (28.0-32.0); Mean Corpuscular Hgb Conc. 33.7 g/dL (32.0-36.0); Mean Corpuscular Volume 89.4 fL (80.0-100.0); Monocytes # (auto) 0.6 uL; Monocytes % (auto) 7.3 % (0.0-12.0); Neutrophils # (auto) 4.8 uL; Neutrophils % (auto) 63.6 % (37.0-80.0); Nucleated Red Blood Cells % 0.1 %; Platelet Count (auto) 187 10^3/uL (140-450); Red Blood Cells 4.99 10^6/uL (4.5-5.90); Red Cell Distribution Width 17.5 % (11.8-14.3); White Blood Cell 7.6 10^3/uL (4.4-10.8)
== END | disposition home or self-care (01) ==
LOC: CHF HDHVI 12:03
PROVIDERS: ATTEND Internal Medicine Cardiovascular Disease
DX: I13.0 Hypertensive heart and chronic kidney disease with heart failure and stage 1 through stage 4 chronic kidney disease, or unspecified chronic kidney disease (principal); E11.22 Type 2 diabetes mellitus with diabetic chronic kidney disease; I50.32 Chronic diastolic (congestive) heart failure; I50.23 Acute on chronic systolic (congestive) heart failure; N18.3 Chronic kidney disease, stage 3 (moderate); I25.10 Atherosclerotic heart disease of native coronary artery without angina pectoris; E83.40 Disorders of magnesium metabolism, unspecified; D64.9 Anemia, unspecified; R06.02 Shortness of breath; R53.83 Other fatigue; R53.1 Weakness; N28.9 Disorder of kidney and ureter, unspecified; I25.2 Old myocardial infarction; I27.21 Secondary pulmonary arterial hypertension; I48.91 Unspecified atrial fibrillation; J44.9 Chronic obstructive pulmonary disease, unspecified; E11.51 Type 2 diabetes mellitus with diabetic peripheral angiopathy without gangrene; E03.9 Hypothyroidism, unspecified; K21.9 Gastro-esophageal reflux disease without esophagitis; E44.0 Moderate protein-calorie malnutrition; F32.9 Major depressive disorder, single episode, unspecified; E78.00 Pure hypercholesterolemia, unspecified; E78.5 Hyperlipidemia, unspecified; G47.33 Obstructive sleep apnea (adult) (pediatric); M19.90 Unspecified osteoarthritis, unspecified site; M10.9 Gout, unspecified; Z79.82 Long term (current) use of aspirin; Z79.899 Other long term (current) drug therapy; Z85.46 Personal history of malignant neoplasm of prostate; Z87.891 Personal history of nicotine dependence; Z86.73 Personal history of transient ischemic attack (TIA), and cerebral infarction without residual deficits; Z79.51 Long term (current) use of inhaled steroids; Z95.810 Presence of automatic (implantable) cardiac defibrillator; Z95.5 Presence of coronary angioplasty implant and graft; Z87.440 Personal history of urinary (tract) infections
CPT/HCPCS: 36415; 80048; 83735; 83880; 85025; 93701; 96372; G0463; J3420

== ENCOUNTER → 2019-01-02 | Outpatient (CLI) | payer MEDICARE ==
[~2019-01-02] MED LIST changes: -CYANOCOBALAMIN (B-12) 1000 MCG/1 ML VIAL IM ONE; -CYANOCOBALAMIN (B-12) 1000 MCG/1 ML VIAL ONE
[2019-01-02 10:54] VITALS: BP 89/56
[2019-01-02 11:23] VITALS: BP 98/69
--- NOTE | 2019-01-02 11:23 | NUR ---
IN TO CLINIC FOR BP CHECK. PT REPORTS LOW BLOOD PRESSURE OBSERVED AT HOME. STATES 'MY NUMBER WAS 90". INITIAL BP CHECK : RIGHT 89/56 HR 83 LEFT 88/64 HR 86 MEDICATION REVIEW DONE. PT IS CURRENTLY ON CLONIDINE, METOPROLOL, AND ENTRESTRO. DR JIMENEZ CONSULTED WITH CURRENT MEDICATION LIST, PT TO STOP CLONIDINE. REVIEWED NEW INSTRUCTIONS WITH REPEAT BACK INSTRUCTIONS. GAVE INSTRUCTIONS WITH WRITTEN INSTRUCTIONS AND VERBAL INSTRUCTIONS. Discharge Instructions See e-MAR for any mediations given with this visit. Patient education given on disease process. Patient verbalized understanding. Previous labs reviewed. Patient discharged in stable condition with after care instructions.
== END | disposition home or self-care (01) ==
LOC: CHF HDHVI 12:45
PROVIDERS: ATTEND Internal Medicine Cardiovascular Disease
DX: I95.9 Hypotension, unspecified (principal)
CPT/HCPCS: G0463

== ENCOUNTER → 2019-01-20 | Outpatient (CLI) | payer MEDICARE, MEDICAID ==
[~2019-01-20] MED LIST changes: +ASP81EC PO; -ASPI-498 OR; -CLON0.1T14 PO; +METO-169 PO; +POTA8TAB2 PO; -SACU1TAB PO; +SODIUM CHLORIDE 0.9% 1,000 ML IV SCH; +TRIA75TA55 PO; +UMEC1AER IN; +cloNIDine HCL 0.1 MG TAB ONE; +cloNIDine HCL 0.1 MG TAB PO ONE
[2019-01-20 08:15] VITALS: BP 184/95
[2019-01-20 08:56] VITALS: BP 182/93
--- NOTE | 2019-01-20 08:56 | NUR ---
PROP FOR RIGHT LEG HEALTH SAFETY INSTRUCTOR FOR 01/22/19 FOR PVD. Pre-Op Discharge Summary: See e-MAR for any medications given for this visit. Pre-op orders received and carried out per MD of EKG, LABS and chest xrays. Patient given a copy of EKG with instructions to go to [facility] out patient for further follow up care.
[2019-01-20 12:10] LABS: INR 0.94 (0.9-1.15); Partial Thromboplastin Time 26.6 sec (23.78-33.04); Prothrombin Time 10.1 sec (9.27-12.13)
[2019-01-20 12:13] LABS: Potassium 3.6 mmol/L (3.5-5.1)
[2019-01-20 12:17] LABS: Basophils # (auto) 0 uL; Basophils % (auto) 0.5 % (0.0-2.0); Eosinophils # (auto) 0.2 uL; Eosinophils % (auto) 2.2 % (0.0-7.0); Hematocrit 44.5 % (41.0-53.0); Hemoglobin 14.8 g/dL (13.5-17.5); Lymphocytes # (auto) 2.3 uL; Lymphocytes % (auto) 30.4 % (10.0-50.0); Mean Corpuscular Hemoglobin 30.3 pg (28.0-32.0); Mean Corpuscular Hgb Conc. 33.4 g/dL (32.0-36.0); Mean Corpuscular Volume 90.6 fL (80.0-100.0); Monocytes # (auto) 0.6 uL; Monocytes % (auto) 8.2 % (0.0-12.0); Neutrophils # (auto) 4.4 uL; Neutrophils % (auto) 58.7 % (37.0-80.0); Nucleated Red Blood Cells % 0.2 %; Platelet Count (auto) 166 10^3/uL (140-450); Red Blood Cells 4.91 10^6/uL (4.5-5.90); Red Cell Distribution Width 17.4 % (11.8-14.3); White Blood Cell 7.4 10^3/uL (4.4-10.8)
[2019-01-20 12:19] LABS: BUN/Creatinine Ratio 5.6; Calcium 8.8 mg/dL (8.5-10.1)
--- NOTE | 2019-01-20 14:30 | NUR ---
LABS RETURNED AND PT PHONED TO RETURN TO CLINIC FOR REPEAT LABS. NOTED TO HAVE VERY ELEVATED CREATININE COMPARED TO LAST LAB ON 12/31. LAB REDRAWN PERIPHERALLY AND SENT FOR STAT RESULT. IV insertion IV access obtained, via clean sterile technique by inserting 22 gauge catheter at after attempt(s). IV secured properly. No trauma to site. Patient tolerated procedure well. START IV FLUIDS AND WAIT FOR LAB RESULTS.
--- NOTE | 2019-01-20 14:43 | NUR ---
BP 199/102. HYPERTENSIVE EARLIER AND PT WAS INSTRUCTED TO TAKE BP MEDS. PT INITIALLY STATED HE TOOK HIS MEDICINE THEN STATES HE IS OUT OF 'SOME" WHEN QUESTIONED FURTHER. CLINIC PROVIDER CONSULTED AND MEDICATED WITH CLONIDINE 0.1MG PO NOW.
--- NOTE | 2019-01-20 15:57 | NUR ---
SBP 173/102 , HR 69. STAT LABS RETURNED WITH NORMAL RESULT. CREATININE 1.73. IV FLUIDS STOPPED AND PT DISCHARGED.
[2019-01-22 14:01] LABS: Calcium 9.4 mg/dL (8.5-10.1)
[2019-01-22 14:03] LABS: BUN/Creatinine Ratio 9.7
== END | disposition home or self-care (01) ==
LOC: Rad HDHVI 08:02
PROVIDERS: ATTEND Internal Medicine Cardiovascular Disease
DX: Z01.812 Encounter for preprocedural laboratory examination (principal); I11.0 Hypertensive heart disease with heart failure; I50.9 Heart failure, unspecified; D64.9 Anemia, unspecified; R79.1 Abnormal coagulation profile; R94.4 Abnormal results of kidney function studies
CPT/HCPCS: 36415; 80048; 82565; 85025; 85610; 85730; 93005; G0463

== ENCOUNTER → 2019-02-04 | Outpatient (CLI) | payer MEDICARE, MEDICAID ==
[~2019-02-04] MED LIST changes: -CHOL20007 PO; -CLOP75TA28 PO; -ESOM40CA39 PO; -FLUT250M2 INH; -METO25TA5 PO; -MULT-908 OR; -POTA10TA51 PO; -SODIUM CHLORIDE 0.9% 1,000 ML IV SCH; -TRIA75TA66 PO; -cloNIDine HCL 0.1 MG TAB ONE; -cloNIDine HCL 0.1 MG TAB PO ONE
[2019-02-04 13:35] VITALS: BP 161/100
--- NOTE | 2019-02-04 13:35 | NUR ---
CHF PT ARRIVED AT THE CHF CLINIC FOR COLLOW UP. PT ALERT ORIENTED 0 DISTRESS, VITAL SIGNS OBTAINED
--- NOTE | 2019-02-04 14:00 | NUR ---
Discharge Instructions See [employer] for any mediations given with this visit. Patient education given on disease process. Patient verbalized understanding. Previous labs reviewed. Patient discharged in stable condition with after care instructions and follow up appointment. Addendum: 02/04/19 at 1440 by STEVEN CLINE RN RN CO DISCHARGE TIME ACTUALLY 1410
--- NOTE | 2019-02-04 14:10 | NUR ---
CARDIODYINAMIC CARDIODYNAMICS COMPLETE , IMPROVEMENT NOTED , DISCUSSED RESULTS WITH PATIENT, PT VERBALIZED UNDERSATNDING
[2019-02-04 14:18] VITALS: BP 134/80
== END | disposition home or self-care (01) ==
LOC: CHF HDHVI 14:19
PROVIDERS: ATTEND Internal Medicine Cardiovascular Disease
DX: I11.0 Hypertensive heart disease with heart failure (principal); I50.9 Heart failure, unspecified; E11.9 Type 2 diabetes mellitus without complications
CPT/HCPCS: 93701; G0463

== ENCOUNTER → 2019-02-16 | Outpatient (CLI) | payer MEDICARE, MEDICAID ==
[~2019-02-16] MED LIST changes: +CYANOCOBALAMIN (B-12) 1000 MCG/1 ML VIAL IM ONE; +CYANOCOBALAMIN (B-12) 1000 MCG/1 ML VIAL ONE; +cloNIDine HCL 0.1 MG TAB ONE; +cloNIDine HCL 0.1 MG TAB PO ONE
[2019-02-16 13:31] VITALS: BP 178/108
--- NOTE | 2019-02-16 13:31 | NUR ---
CHF PT ARRIVED TO CHF CLINIC ALERT ORIENTED 0 DISTRESSBP HIGH ORDERS RECEIVED AND NOTED
[2019-02-16 14:46] VITALS: BP 172/88
--- NOTE | 2019-02-16 14:46 | NUR ---
Discharge Instructions See e-MAR for any mediations given with this visit. Patient education given on disease process. Patient verbalized understanding. Previous labs reviewed. Patient discharged in stable condition with after care instructions and follow up appointment. MEDICATIONS 1400 CLONODINE 0.2MG 1406 VITAMIN B12 1000MCG IM X 1
== END | disposition home or self-care (01) ==
LOC: CHF HDHVI 13:52
PROVIDERS: ATTEND Internal Medicine Cardiovascular Disease
DX: I13.0 Hypertensive heart and chronic kidney disease with heart failure and stage 1 through stage 4 chronic kidney disease, or unspecified chronic kidney disease (principal); E11.22 Type 2 diabetes mellitus with diabetic chronic kidney disease; I50.42 Chronic combined systolic (congestive) and diastolic (congestive) heart failure; N18.3 Chronic kidney disease, stage 3 (moderate); E11.51 Type 2 diabetes mellitus with diabetic peripheral angiopathy without gangrene; J44.9 Chronic obstructive pulmonary disease, unspecified; E78.5 Hyperlipidemia, unspecified; K21.9 Gastro-esophageal reflux disease without esophagitis; E03.9 Hypothyroidism, unspecified; I25.2 Old myocardial infarction; F32.9 Major depressive disorder, single episode, unspecified; G47.33 Obstructive sleep apnea (adult) (pediatric); E78.00 Pure hypercholesterolemia, unspecified; I27.21 Secondary pulmonary arterial hypertension; I48.91 Unspecified atrial fibrillation; Z79.899 Other long term (current) drug therapy; Z95.810 Presence of automatic (implantable) cardiac defibrillator; Z79.82 Long term (current) use of aspirin; Z86.73 Personal history of transient ischemic attack (TIA), and cerebral infarction without residual deficits
CPT/HCPCS: 96372; J3420; G0463

== ENCOUNTER → 2019-02-23 | Outpatient (CLI) | payer MEDICARE, MEDICAID ==
[~2019-02-23] MED LIST changes: +ASPI-498 OR; +CHOL20007 PO; +CLON0.1T14 PO; +CLOP75TA28 PO; -CYANOCOBALAMIN (B-12) 1000 MCG/1 ML VIAL IM ONE; -CYANOCOBALAMIN (B-12) 1000 MCG/1 ML VIAL ONE; +ESOM40CA39 PO; +FLUT250M2 INH; +METO25TA5 PO; +MULT-908 OR; +POTA10TA51 PO; +SACU1TAB PO; +TRIA75TA66 PO; -cloNIDine HCL 0.1 MG TAB PO ONE
[2019-02-23 13:25] VITALS: BP 176/118
[2019-02-23 14:09] VITALS: BP 149/95
--- NOTE | 2019-02-23 14:09 | NUR ---
IN TO CLINIC FOR BLOOD PRESSURE CHECK. PT INITIALLY VERY HYPERTENSIVE. REVIEWED ALL MEDS WITH PATIENT. ACKNOWLEDGED ALL MEDS. AGREED THAT HE TOOK ALL MEDS JUST '30 MINUTES BEFORE" HE ARRIVED. BLOOD PRESSURE MONITORED AND WITHIN 30 MINUTES BP TRENDING DOWN. STRESSED IMPORTANCE OF TAKING MEDS EARLIER IN DAY. PT AGREED TO SET AN ALARM AND TAKE HIS MEDS SOONER IN THE DAY. FOLLOWUP IN 2 WEEKS WITH CHF CLINIC AND FOLLOWUP APPOINTMENT MADE WITH DR JIMENEZ ON MARCH 11 AT 230 PM. DISCHARGED TO SELF CARE IN NO DISTRESS OR DISCOMFORT.
== END | disposition home or self-care (01) ==
LOC: CHF HDHVI 13:41
PROVIDERS: ATTEND Internal Medicine Cardiovascular Disease
DX: I11.0 Hypertensive heart disease with heart failure (principal); I50.9 Heart failure, unspecified; J44.9 Chronic obstructive pulmonary disease, unspecified
CPT/HCPCS: G0463

== ENCOUNTER 2019-03-06 16:24 | Emergency (ER) | payer MEDICARE, MEDICAID ==
[~2019-03-06] VITALS: Ht 175.3 cm; Wt 88.5 kg
[~2019-03-06 16:24] MED LIST changes: -ASPI-498 OR; -CHOL20007 PO; -CLON0.1T14 PO; -CLOP75TA28 PO; -ESOM40CA39 PO; -FLUT250M2 INH; -METO25TA5 PO; -MULT-908 OR; -POTA10TA51 PO; -SACU1TAB PO; -TRIA75TA66 PO; -cloNIDine HCL 0.1 MG TAB ONE
[2019-03-06 21:10] VITALS: BP 145/91
[2019-03-06] MEDS ORDERED: TRIAMCINOLONE 40MG/ML 1ML VIAL IX ONE (21:30)
[2019-03-06] MEDS ORDERED: ONDANSETRON ODT 4 MG TAB PO ONE (21:30)
[2019-03-06] MEDS ORDERED: MEPERIDINE HCL (25 MG/ML) 1ML VIAL IM ONE (21:30)
== END 2019-03-06 22:29 | disposition home or self-care (01) ==
LOC: ER 16:31
DX: M62.838 Other muscle spasm (principal); M54.2 Cervicalgia
CPT/HCPCS: 20552; 70450; 72125; 99284; J3301

== ENCOUNTER → 2019-04-17 | Outpatient (CLI) | payer MEDICARE, MEDICAID | END | disposition home or self-care (01) | LOC: Rad HDHVI 09:06 | PROVIDERS: ATTEND Internal Medicine Cardiovascular Disease | DX: M47.812 Spondylosis without myelopathy or radiculopathy, cervical region (principal); M48.061 Spinal stenosis, lumbar region without neurogenic claudication; M48.02 Spinal stenosis, cervical region; I71.4 Abdominal aortic aneurysm, without rupture; M25.78 Osteophyte, vertebrae; M62.838 Other muscle spasm; I70.0 Atherosclerosis of aorta; M51.26 Other intervertebral disc displacement, lumbar region; M12.88 Other specific arthropathies, not elsewhere classified, other specified site | CPT/HCPCS: 72125; 72131 ==

== ENCOUNTER → 2019-06-29 | Outpatient (CLI) | payer MEDICARE, MEDICAID ==
[~2019-06-29] MED LIST changes: -AMLO10TA12 PO; +AMLO10TA13 PO; +CLON0.1T14 PO; +CLOP75TA28 PO; +ESOM40CA39 PO; +SACU1TAB PO
[2019-06-29 10:30] VITALS: BP 175/95
[2019-06-29 10:55] VITALS: BP 171/100
--- NOTE | 2019-06-29 10:55 | NUR ---
PRE-OP FOR LEFT LE ANGIO FOR 07/02/19. Pre-Op Discharge Summary: See e-MAR for any medications given for this visit. Pre-op orders received and carried out per MD of EKG, LABS and chest xrays. Patient given a copy of EKG with instructions to go to [facility] out patient for further follow up care.
[2019-06-29 12:09] LABS: Basophils # (auto) 0 uL; Basophils % (auto) 0.6 % (0.0-2.0); Eosinophils # (auto) 0.2 uL; Hematocrit 45.6 % (41.0-53.0); Hemoglobin 15.8 g/dL (13.5-17.5); Lymphocytes # (auto) 2.3 uL; Lymphocytes % (auto) 29.4 % (10.0-50.0); Mean Corpuscular Hemoglobin 32.3 pg (28.0-32.0); Mean Corpuscular Hgb Conc. 34.6 g/dL (32.0-36.0); Mean Corpuscular Volume 93.4 fL (80.0-100.0); Monocytes # (auto) 0.5 uL; Monocytes % (auto) 6.4 % (0.0-12.0); Neutrophils # (auto) 4.8 uL; Neutrophils % (auto) 61.6 % (37.0-80.0); Nucleated Red Blood Cells % 0.2 %; Platelet Count (auto) 198 10^3/uL (140-450); Red Blood Cells 4.88 10^6/uL (4.5-5.90); Red Cell Distribution Width 15.7 % (11.8-14.3); White Blood Cell 7.8 10^3/uL (4.4-10.8)
[2019-06-29 12:29] LABS: INR 0.95 (0.9-1.15); Partial Thromboplastin Time 28.1 sec (23.64-32.05)
[2019-06-29 13:45] LABS: Calcium 9.1 mg/dL (8.5-10.1); Potassium 3.6 mmol/L (3.5-5.1)
[2019-06-29 13:49] LABS: BUN/Creatinine Ratio 12.3
== END | disposition home or self-care (01) ==
LOC: Rad HDHVI 09:52
PROVIDERS: ATTEND Internal Medicine Cardiovascular Disease
DX: Z01.812 Encounter for preprocedural laboratory examination (principal); I70.0 Atherosclerosis of aorta; D64.9 Anemia, unspecified; R79.1 Abnormal coagulation profile; I11.0 Hypertensive heart disease with heart failure; I50.9 Heart failure, unspecified; I73.9 Peripheral vascular disease, unspecified; I25.5 Ischemic cardiomyopathy
CPT/HCPCS: 36415; 71046; 80048; 85025; 85610; 85730; 93005; G0463

== ENCOUNTER 2019-07-02 06:25 | Inpatient (IN) | payer MEDICARE, MEDICAID ==
[~2019-07-02] VITALS: Ht 175.3 cm; Wt 89.4 kg
[~2019-07-02 06:25] MED LIST changes: -SACU1TAB7 PO
[2019-07-02] MEDS ORDERED: fentaNYL CITRATE 100 MCG/2 ML VL ONE (08:54)
[2019-07-02] MEDS ORDERED: ANGIOMAX 250 MG VIAL IV ONE (08:54)
[2019-07-02] MEDS ORDERED: IODIXANOL 320MG/ML 100ML BTL IV ONE (08:55)
[2019-07-02] MEDS ORDERED: SODIUM CHL 0.9% 50 ML ONE (08:55)
[2019-07-02] MEDS ORDERED: MIDAZOLAM HCL 1MG/1ML-2 ML VIAL ONE (08:55)
[2019-07-02] MEDS ORDERED: LIDOCAINE 2%HCL (LOCAL ANESTH.) INJ 20ML MDV ONE (08:55)
[2019-07-02] MEDS ORDERED: ONDANSETRON HCL 4 MG/2 ML VIAL IV PRN (10:30)
[2019-07-02] MEDS ORDERED: ACETAMINOPHEN 500 MG TAB PO PRN (10:30)
[2019-07-02] MEDS ORDERED: HYDROcodone-ACET 5/325MG TAB PO PRN (10:30)
--- NOTE | 2019-07-02 11:20 | NUR ---
MS admit from [facility] admitted to tele/MS after SBAR received. Patient oriented to Nemesio Atkinson, primary RN, unit, room, bed, and unit policies regarding patient care and visiting hours. Patient weighed by bedscale and encouraged to call if they need something. All questions and concerns addressed, patient verbalized understanding. Note: Patient is aware that he needs to lay flat until 1150am. instructed about consequences if he does not lay flat. verbalized understanding.
[2019-07-02 13:00] VITALS: BP 124/77
[2019-07-02] MEDS: PHENYTOIN SODIUM 100 MG CAP PO SCH ×2 (14:52→22:14)
[2019-07-02] MEDS: IPRATROPIUM BROM 0.5 MG/2.5ML INH SOL HHN SCH ×2 (18:00→23:44)
[2019-07-02] MEDS: ALBUTEROL SULF 2.5 MG/0.5ML(0.5%) NEB SOLN HHN SCH ×2 (18:00→23:44)
[2019-07-02] MEDS ORDERED: ATORVASTATIN 20 MG TAB PO SCH (18:00)
[2019-07-02 18:09] VITALS: BP 108/65
--- NOTE | 2019-07-02 18:25 | NUR ---
Respiratory note: PT REFUSED MED NEB TX AT THIS TIME. PT SLEEPING WHEN ARRIVED AT BEDSIDE, PT STATES HE WILL TAKE THE NEXT SCHEDULED TX. NO RESPIRATORY DISTRESS NOTED, WILL CONTINUE TO MONITOR.
[2019-07-02 19:32] VITALS: BP 108/65
--- NOTE | 2019-07-02 19:39 | NUR ---
OPENING NOTES RECEIVED REPORT FROM DAY SHIFT NURSE. PT IS AWAKE, ALERT, AND ORIENTATED X 4 WITH NO S/S OF DISTRESS NOR PAIN. NO SOB NOTED. RT GROIN INCISION IS CLEAN, DRY, INTACT, SOFT TO TOUCH. BILATERAL PULSES PRESENT. TOLD PT TO CALL FOR ASSISTANCE. BED IS IN LOWEST POSITIONS WITH SIDE RAILS UP X 2. BED BRAKES ARE LOCKED AND CALL LIGHT IS WITH IN REACH. WILL MONITOR Q 1HR.
[2019-07-02 22:14] VITALS: BP 119/69
[2019-07-02] MEDS: SACUBITRIL-VALSARTAN 24mg/26mg TAB PO SCH (22:14)
[2019-07-02] MEDS: cloNIDine HCL 0.1 MG TAB PO SCH (22:14)
[2019-07-02] MEDS: CILOSTAZOL 100 MG TAB PO SCH (22:14)
[2019-07-02] MEDS: PANTOPRAZOLE 40 MG TAB PO SCH (22:15)
[2019-07-03 05:43] VITALS: BP 138/77
[2019-07-03] MEDS: PHENYTOIN SODIUM 100 MG CAP PO SCH (06:04)
[2019-07-03] MEDS: ALBUTEROL SULF 2.5 MG/0.5ML(0.5%) NEB SOLN HHN SCH (06:17)
[2019-07-03] MEDS: IPRATROPIUM BROM 0.5 MG/2.5ML INH SOL HHN SCH (06:17)
[2019-07-03] MEDS ORDERED: LEVOTHYROXINE SODIUM 100 MCG TAB PO SCH (07:00)
--- NOTE | 2019-07-03 07:20 | NUR ---
closing notes endorsed care to day shift nurseNemesio.
--- NOTE | 2019-07-03 07:30 | NUR ---
Opening Shift Note Assumed care of patient, awake and alert. No S/S of distress/SOB or pain. Instructed on POC and to call for assist PRN, will continue to monitor for changes Q1hr and PRN.
[2019-07-03 08:00] VITALS: BP 139/87
[2019-07-03] MEDS: CILOSTAZOL 100 MG TAB PO SCH (10:00)
[2019-07-03] MEDS ORDERED: ASPirin-EC 81 mg tab PO SCH (10:00)
[2019-07-03] MEDS: PANTOPRAZOLE 40 MG TAB PO SCH (10:00)
[2019-07-03] MEDS: SACUBITRIL-VALSARTAN 24mg/26mg TAB PO SCH (10:00)
[2019-07-03] MEDS ORDERED: POTASSIUM CHLORIDE 8 MEQ TAB PO SCH (10:00)
[2019-07-03] MEDS ORDERED: METOPROLOL SUCCINATE XL 50 MG TAB PO SCH (10:00)
[2019-07-03] MEDS ORDERED: TRIAMTERENE/HCTZ 75/50MG TABLET PO SCH (10:00)
[2019-07-03] MEDS ORDERED: amLODIPine BESYLATE 5 MG TAB PO SCH (10:00)
[2019-07-03] MEDS: cloNIDine HCL 0.1 MG TAB PO SCH (10:00)
[2019-07-03] MEDS ORDERED: CLOPIDOGREL BISULFATE 75 MG TAB PO SCH (10:00)
[2019-07-03 10:10] VITALS: BP 139/87
--- NOTE | 2019-07-03 10:20 | NUR ---
Discharge instructions given as ordered. Encourage to follow up with PMD as instructed. All questions and concerns addressed. Patient verbalized understanding. IV removed with catheter intact, pressure dressing applied. Patient ambulated to vehicle via with all personal belongings, accompanied by staff. No distress noted at time of departure.
== END 2019-07-03 10:20 | disposition home or self-care (01) | DRG 270 ==
LOC: CATH 06:25 → TELE-WESTW 11:23 → WEST WING 19:30
PROVIDERS: ADMIT Internal Medicine Cardiovascular Disease; ATTEND Internal Medicine Cardiovascular Disease
PROC: B41G1ZZ Fluoroscopy of Left Lower Extremity Arteries using Low Osmolar Contrast (ICD-10-PCS; principal; 2019-07-02)
PROC: 047J3D1 Dilation of Left External Iliac Artery with Intraluminal Device, using Drug-Coated Balloon, Percutaneous Approach (ICD-10-PCS; 2019-07-02)
PROC: B41F1ZZ Fluoroscopy of Right Lower Extremity Arteries using Low Osmolar Contrast (ICD-10-PCS; 2019-07-02)
PROC: 04CJ3ZZ Extirpation of Matter from Left External Iliac Artery, Percutaneous Approach (ICD-10-PCS; 2019-07-02)
DX: I70.202 Unspecified atherosclerosis of native arteries of extremities, left leg (principal); I50.23 Acute on chronic systolic (congestive) heart failure; I74.5 Embolism and thrombosis of iliac artery; J44.9 Chronic obstructive pulmonary disease, unspecified; I25.10 Atherosclerotic heart disease of native coronary artery without angina pectoris; I25.5 Ischemic cardiomyopathy; I11.0 Hypertensive heart disease with heart failure; E78.5 Hyperlipidemia, unspecified; F17.200 Nicotine dependence, unspecified, uncomplicated; I25.2 Old myocardial infarction; Z82.49 Family history of ischemic heart disease and other diseases of the circulatory system; Z91.19 Patient's noncompliance with other medical treatment and regimen; Z95.810 Presence of automatic (implantable) cardiac defibrillator; Z79.899 Other long term (current) drug therapy; Z95.1 Presence of aortocoronary bypass graft; Z79.82 Long term (current) use of aspirin; Z86.73 Personal history of transient ischemic attack (TIA), and cerebral infarction without residual deficits
CPT/HCPCS: 34201; 37221; 75716; 94640; C1769; G0378; J2250; Q9967

== ENCOUNTER → 2019-07-10 | Outpatient (CLI) | payer MEDICARE, MEDICAID ==
[2019-07-10 10:50] VITALS: BP 109/76
[2019-07-10 12:00] VITALS: BP 97/60
--- NOTE | 2019-07-10 12:00 | NUR ---
IN BEFORE AND AFTER SEEING PHYSICIAN TODAY. PT IS S/P A VASCULAR INTERVENTION ONE WEEK AGO FOR PVD. PT REPORTS THAT HE WILL HAVE ANOTHER INTERVENTION ON HIS LOWER EXTREMITY ON THE LEFT SIDE. WITHOUT DISTRESS. CARDIODYNAMICS DONE AND REVIEWED. PREVIOUS LABS REVIEWED. ADDITIONAL LABS DRAWN AND SENT. DISCHARGED TO SELF CARE IN NO DISTRESS OR DISCOMFORT.
[2019-07-10 15:22] LABS: Cholesterol 155 mg/dL (< 200); Triglycerides 178 mg/dL (< 150)
[2019-07-10 15:24] LABS: HDL Cholesterol 26 mg/dL (40-59); LDL Cholesterol 105 mg/dL (< 100)
== END | disposition home or self-care (01) ==
LOC: CHF HDHVI 11:38
PROVIDERS: ATTEND Internal Medicine Cardiovascular Disease
DX: E78.00 Pure hypercholesterolemia, unspecified (principal); E11.9 Type 2 diabetes mellitus without complications; K90.9 Intestinal malabsorption, unspecified; J44.9 Chronic obstructive pulmonary disease, unspecified; I73.9 Peripheral vascular disease, unspecified; I11.0 Hypertensive heart disease with heart failure; I50.9 Heart failure, unspecified
CPT/HCPCS: 36415; 80061; 82306; 83036; 93701; G0463

== ENCOUNTER → 2019-07-20 | Outpatient (CLI) | payer MEDICARE, MEDICAID ==
[2019-07-20 10:26] VITALS: BP 126/84
--- NOTE | 2019-07-20 10:26 | NUR ---
CHF PT ARRIVED AT THE CHF CLINIC FOR PREOP A/0 X 3 0 DISTRESS
[2019-07-20 11:00] VITALS: BP 133/85
--- NOTE | 2019-07-20 11:00 | NUR ---
Discharge Instructions See e-MAR for any mediations given with this visit. Patient education given on disease process. Patient verbalized understanding. Previous labs reviewed. Patient discharged in stable condition with after care instructions and follow up appointment.
[2019-07-20 12:26] LABS: Basophils # (auto) 0 uL; Basophils % (auto) 0.6 % (0.0-2.0); Eosinophils # (auto) 0.2 uL; Eosinophils % (auto) 1.9 % (0.0-7.0); Hematocrit 43.3 % (41.0-53.0); Hemoglobin 14.8 g/dL (13.5-17.5); Lymphocytes # (auto) 1.9 uL; Lymphocytes % (auto) 23.5 % (10.0-50.0); Mean Corpuscular Hemoglobin 30.9 pg (28.0-32.0); Mean Corpuscular Hgb Conc. 34.3 g/dL (32.0-36.0); Mean Corpuscular Volume 90.3 fL (80.0-100.0); Monocytes # (auto) 0.7 uL; Monocytes % (auto) 8.4 % (0.0-12.0); Neutrophils # (auto) 5.3 uL; Neutrophils % (auto) 65.6 % (37.0-80.0); Nucleated Red Blood Cells % 0.1 %; Platelet Count (auto) 181 10^3/uL (140-450); Red Cell Distribution Width 15.2 % (11.8-14.3); White Blood Cell 8.1 10^3/uL (4.4-10.8)
[2019-07-20 12:32] LABS: BUN/Creatinine Ratio 9.6; Potassium 3.9 mmol/L (3.5-5.1)
[2019-07-20 12:39] LABS: INR 0.95 (0.9-1.15)
== END | disposition home or self-care (01) ==
LOC: Rad HDHVI 10:29
PROVIDERS: ATTEND Internal Medicine Cardiovascular Disease
DX: Z01.812 Encounter for preprocedural laboratory examination (principal); D64.9 Anemia, unspecified; R79.1 Abnormal coagulation profile; I73.9 Peripheral vascular disease, unspecified; I11.0 Hypertensive heart disease with heart failure; I50.9 Heart failure, unspecified
CPT/HCPCS: 36415; 80048; 85025; 85610; 85730; 93005; G0463

== ENCOUNTER 2019-07-23 07:12 | Inpatient (IN) | payer MEDICARE, MEDICAID | END 2019-07-24 11:51 | disposition home or self-care (01) | LOC: CATH 07:12 → WEST WING 07-24 04:13 → TELE-WESTW 13:17 | PROC: 047L341 Dilation of Left Femoral Artery with Drug-eluting Intraluminal Device, using Drug-Coated Balloon, Percutaneous Approach (ICD-10-PCS; principal; ~2019-07-23) | PROC: 04CL3ZZ Extirpation of Matter from Left Femoral Artery, Percutaneous Approach (ICD-10-PCS; ~2019-07-23) | PROC: 047N341 Dilation of Left Popliteal Artery with Drug-eluting Intraluminal Device, using Drug-Coated Balloon, Percutaneous Approach (ICD-10-PCS; ~2019-07-23) | DX: I70.202 Unspecified atherosclerosis of native arteries of extremities, left leg (principal); I50.20 Unspecified systolic (congestive) heart failure; I25.5 Ischemic cardiomyopathy; Z79.02 Long term (current) use of antithrombotics/antiplatelets ==

== ENCOUNTER → 2019-08-13 | Outpatient (CLI) | payer MEDICARE, MEDICAID ==
[~2019-08-13] VITALS: Ht 30.5 cm; Wt 0.5 kg
[~2019-08-13] MED LIST changes: +NITROGLYCERIN 0.4 MG SL TAB SL ONE
[2019-08-13 10:50] VITALS: BP 139/85
--- NOTE | 2019-08-13 10:50 | NUR ---
IN TO CLINIC WITH REPORT OF CHEST PAIN, "WELL NOT REALLY", BUT PAIN FROM SHOULDER TO SHOULDER THAT WOKE HIM UP AT NIGHT. REPORTS IT LASTED 30 MINUTES AND HE WENT BACK TO SLEEP AND THEN NOTICED IT THIS AM. RATED 2/10 CURRENTLY. DENIES PAIN AND INSTEAD CALLS IT DISCOMFORT. VS WNL AND PT STATES HE TOOK ALL HIS MEDICINE TODAY. 12 LEAD EKG TO BE DONE.
--- NOTE | 2019-08-13 11:00 | NUR ---
12 LEAD EKG OBTAINED. OBTAIN OLD CHART AND COMPARE.
--- NOTE | 2019-08-13 11:15 | NUR ---
NO CHANGE IN CHEST PAIN. MEDICATED WITH NITRO.
--- NOTE | 2019-08-13 11:20 | NUR ---
MEDICATED WITH SECOND NITRO.
--- NOTE | 2019-08-13 11:25 | NUR ---
TOTAL RELIEF OF PAIN. RATES ZERO. REPEAT EKG.
--- NOTE | 2019-08-13 11:29 | NUR ---
ATTEMPTED TO REACH DR JIMENEZ FOR EKG AND STATUS.
--- NOTE | 2019-08-13 11:30 | NUR ---
ANJEL FAXED TO DR JIMENEZ IN BLOOD BANK WORKER.
--- NOTE | 2019-08-13 11:40 | NUR ---
MD AWARE OF EKGS. NEW RX TO BE ORDERED NITRO PATCH 0.4 MG TO CHEST WALL DAILY.
--- NOTE | 2019-08-13 11:50 | NUR ---
NEW RX E SCRIPTED TO PTS PHARMACY. INSTRUCTED ON APPLICAINSTRUCTED TO APPLY ON UPPER CHEST WALL AND TO ALTERNATE APPLICATION SITES. PT VERBALIZED UNDERSTANDING. THE OLD PATCH WHEN APPLYING THE NEW ONE.
[2019-08-13 12:10] VITALS: BP 143/86
--- NOTE | 2019-08-13 12:10 | NUR ---
DISCHARGED TO SELF CARE IN NO DISTRESS OR DISCOMFORT. REPEAT BACK INSTRUCTIONS OBTAINED AND VERIFIED. FURTHER QUESTIONS DENIED. MEDICATION ADMINISTRATION NITRO SL X 2 FOR CHEST PAIN EKG X 2 FOR CHEST PAIN
[2019-08-13] MEDS: NITROGLYCERIN 0.4 MG SL TAB SL PRN ×2 (13:22→13:23)
== END | disposition home or self-care (01) ==
LOC: CHF HDHVI 10:54
PROVIDERS: ATTEND Internal Medicine Cardiovascular Disease
DX: R94.31 Abnormal electrocardiogram [ECG] [EKG] (principal); I11.0 Hypertensive heart disease with heart failure; I50.9 Heart failure, unspecified; J44.9 Chronic obstructive pulmonary disease, unspecified
CPT/HCPCS: 93005; G0463

== ENCOUNTER → 2019-09-15 | Outpatient (CLI) | payer MEDICARE, MEDICAID ==
[~2019-09-15] MED LIST changes: -NITROGLYCERIN 0.4 MG SL TAB SL ONE
[2019-09-15 11:51] VITALS: BP 137/91
--- NOTE | 2019-09-15 11:51 | NUR ---
CHF CLINIC Discharge Instructions See e-MAR for any mediations given with this visit. Patient education given on disease process. Patient verbalized understanding. Previous labs reviewed. Patient discharged in stable condition with after care instructions and follow up appointment. NOTE: PACEMAKER CHECK PERFORMED DURING VISIT BY GIULIANA SOOD. SCHEDULED ECHOCARDIOGRAM FOR TODAY 09/15/19 AT 1600. INSTRUCTED TO KEEP APPOINTMENT AND PROVIDED INFORMATION ON PAPER. PATIENT VERBALIZED UNDERSTANDING.
[2019-09-15 15:23] LABS: Basophils # (auto) 0 uL; Basophils % (auto) 0.5 % (0.0-2.0); Eosinophils # (auto) 0.1 uL; Hematocrit 43.8 % (41.0-53.0); Hemoglobin 14.8 g/dL (13.5-17.5); Lymphocytes # (auto) 1.9 uL; Lymphocytes % (auto) 26.9 % (10.0-50.0); Mean Corpuscular Hemoglobin 30.5 pg (28.0-32.0); Mean Corpuscular Hgb Conc. 33.8 g/dL (32.0-36.0); Mean Corpuscular Volume 90.4 fL (80.0-100.0); Monocytes # (auto) 0.6 uL; Monocytes % (auto) 8.1 % (0.0-12.0); Neutrophils # (auto) 4.5 uL; Neutrophils % (auto) 62.5 % (37.0-80.0); Nucleated Red Blood Cells % 0.1 %; Platelet Count (auto) 179 10^3/uL (140-450); Red Blood Cells 4.85 10^6/uL (4.5-5.90); Red Cell Distribution Width 15.9 % (11.8-14.3); White Blood Cell 7.1 10^3/uL (4.4-10.8)
[2019-09-15 15:34] LABS: Albumin 3.2 g/dL (3.4-5.0); Calcium 8.6 mg/dL (8.5-10.1); Magnesium 2.1 mg/dL (1.6-2.6)
[2019-09-15 15:37] LABS: BUN/Creatinine Ratio 9.8; Bilirubin, Total 0.4 mg/dL (0.2-1.0); Total Protein 7.3 g/dL (6.4-8.2)
== END | disposition home or self-care (01) ==
LOC: CHF HDHVI 10:44
PROVIDERS: ATTEND Internal Medicine Cardiovascular Disease
DX: I11.0 Hypertensive heart disease with heart failure (principal); I50.23 Acute on chronic systolic (congestive) heart failure; D64.9 Anemia, unspecified; E83.40 Disorders of magnesium metabolism, unspecified; R53.83 Other fatigue; I20.9 Angina pectoris, unspecified; J44.9 Chronic obstructive pulmonary disease, unspecified; F17.200 Nicotine dependence, unspecified, uncomplicated; Z95.818 Presence of other cardiac implants and grafts; Z98.890 Other specified postprocedural states
CPT/HCPCS: 36415; 80053; 83735; 83880; 85025; 93306; G0463

== ENCOUNTER → 2019-12-14 | Outpatient (CLI) | payer MEDICARE, MEDICAID ==
[2019-12-14 13:49] VITALS: BP 130/74
--- NOTE | 2019-12-14 13:49 | NUR ---
Discharge Instructions See e-MAR for any mediations given with this visit. Patient education given on disease process. Patient verbalized understanding. Previous labs reviewed. Patient discharged in stable condition with after care instructions and follow up appointment. CARDIODYNAMICS COMPLETED BY PHIL CHAVEZ AND REVIEWED BY INDIGO
--- NOTE | 2019-12-14 14:00 | NUR ---
CHF PT ARRIVED AT THE CHF CLINIC FOR TX AND DAVID FOR CHF FOLLOW UP. PT A/O X 4 0 DISTRESS VSS Addendum: 12/14/19 at 1503 by STEVEN CANAS RN IA ADJUSTED ADMIT TIME 1300
[2019-12-14 16:01] LABS: Basophils # (auto) 0 uL; Basophils % (auto) 0.5 % (0.0-2.0); Eosinophils # (auto) 0.1 uL; Eosinophils % (auto) 1.3 % (0.0-7.0); Hematocrit 43.3 % (41.0-53.0); Hemoglobin 14.7 g/dL (13.5-17.5); Lymphocytes # (auto) 1.9 uL; Lymphocytes % (auto) 29.5 % (10.0-50.0); Mean Corpuscular Hemoglobin 30.5 pg (28.0-32.0); Mean Corpuscular Hgb Conc. 33.9 g/dL (32.0-36.0); Mean Corpuscular Volume 90.2 fL (80.0-100.0); Monocytes # (auto) 0.3 uL; Monocytes % (auto) 4.9 % (0.0-12.0); Neutrophils % (auto) 63.8 % (37.0-80.0); Nucleated Red Blood Cells % 0.1 %; Platelet Count (auto) 175 10^3/uL (140-450); Red Cell Distribution Width 16.2 % (11.8-14.3); White Blood Cell 6.3 10^3/uL (4.4-10.8)
[2019-12-14 16:13] LABS: BUN/Creatinine Ratio 7.3; Calcium 8.9 mg/dL (8.5-10.1); Potassium 3.6 mmol/L (3.5-5.1)
== END | disposition home or self-care (01) ==
LOC: CHF HDHVI 13:47
PROVIDERS: ATTEND Internal Medicine Cardiovascular Disease
DX: I50.9 Heart failure, unspecified (principal); E11.9 Type 2 diabetes mellitus without complications; I42.9 Cardiomyopathy, unspecified
CPT/HCPCS: 36415; 80048; 83036; 83880; 85025; 93701; G0463

== ENCOUNTER → 2020-01-26 | Outpatient (CLI) | payer MEDICARE, MEDICAID | END | disposition home or self-care (01) | LOC: Rad HDHVI 14:07 | PROVIDERS: ATTEND Internal Medicine Cardiovascular Disease | DX: I73.9 Peripheral vascular disease, unspecified (principal); I77.1 Stricture of artery | CPT/HCPCS: 93926 ==

== ENCOUNTER 2020-07-01 17:59 | Emergency (ER) | payer MEDICARE ==
[~2020-07-01] VITALS: Ht 175.3 cm; Wt 90.7 kg
[~2020-07-01 17:59] MED LIST changes: -ASP81EC PO; +ASPI-394 PO
[2020-07-01 19:13] LABS: Basophils # (auto) 0.1 10 ^3/uL (0-0.2); Basophils % (auto) 0.5 % (0.0-2.0); Eosinophils # (auto) 0.1 10 ^3/uL (0-0.8); Hemoglobin 14.6 g/dL (13.5-17.5); Lymphocytes # (auto) 2.2 10 ^3/uL (0.4-5.4); Lymphocytes % (auto) 21.9 % (10.0-50.0); Mean Corpuscular Hemoglobin 31.9 pg (28.0-32.0); Mean Corpuscular Volume 93.9 fL (80.0-100.0); Monocytes # (auto) 0.8 10 ^3/uL (0-1.3); Monocytes % (auto) 8.4 % (0.0-12.0); Neutrophils # (auto) 6.8 10 ^3/uL (1.6-8.6); Neutrophils % (auto) 68.2 % (37.0-80.0); Nucleated Red Blood Cells % 0.1 %; Platelet Count (auto) 210 10^3/uL (140-450); Red Blood Cells 4.58 10^6/uL (4.5-5.90); Red Cell Distribution Width 15.2 % (11.8-14.3); White Blood Cell 9.9 10^3/uL (4.4-10.8)
[2020-07-01 19:42] LABS: Albumin 3.3 g/dL (3.4-5.0); Calcium 8.4 mg/dL (8.5-10.1); Magnesium 2.2 mg/dL (1.6-2.6); Potassium 3.1 mmol/L (3.5-5.1)
[2020-07-01 19:48] LABS: BUN/Creatinine Ratio 8.6; Bilirubin, Total 0.2 mg/dL (0.2-1.0); Total Protein 7.1 g/dL (6.4-8.2)
[2020-07-01 21:00] VITALS: BP 127/57
[2020-07-01] MEDS ORDERED: PHENYTOIN IV DILANTIN 1,000 MG in SODIUM CHL 0.9% 250 ML IV ONE (21:15)
[2020-07-01] MEDS ORDERED: POTASSIUM CHL 20MEQ/100ML 100 ML IV ONE (21:15)
[2020-07-01] MEDS ORDERED: ENOXAPARIN SOD 100 MG/1 ML SYRINGE SC ONE (21:15)
[2020-07-01] MEDS ORDERED: PHENYTOIN SODIUM 50 MG/ML 5ML INJ VIAL IV ONE (21:54)
[2020-07-01] MEDS ORDERED: LORazepam 2MG/ML-1ML VIAL IV ONE (22:00)
[2020-07-01] MEDS ORDERED: PHENYTOIN IV DILANTIN 500 MG in SODIUM CHL 0.9% 100 ML IV ONE (22:00)
[2020-07-01] MEDS ORDERED: PHENYTOIN SODIUM 100 MG CAP PO ONE (23:00)
[2020-07-01 23:13] LABS: INR 0.97 (0.9-1.15); Partial Thromboplastin Time 27.7 sec (23.0-31.2)
[2020-07-03] MEDS ORDERED: MULT-1018 PO (06:04)
[2020-07-03] MEDS ORDERED: SIMV-8 PO (06:04)
[2020-07-03] MEDS ORDERED: SACU1TAB7 PO (06:04)
[2020-07-03] MEDS ORDERED: FERR-20 PO (06:04)
== END 2020-07-02 00:21 | disposition left against medical advice (07) ==
LOC: ER 17:59
DX: I21.4 Non-ST elevation (NSTEMI) myocardial infarction (principal); J44.9 Chronic obstructive pulmonary disease, unspecified; G40.909 Epilepsy, unspecified, not intractable, without status epilepticus; E87.6 Hypokalemia; I13.0 Hypertensive heart and chronic kidney disease with heart failure and stage 1 through stage 4 chronic kidney disease, or unspecified chronic kidney disease; N18.9 Chronic kidney disease, unspecified; I50.9 Heart failure, unspecified; E78.5 Hyperlipidemia, unspecified; F17.210 Nicotine dependence, cigarettes, uncomplicated; Z86.73 Personal history of transient ischemic attack (TIA), and cerebral infarction without residual deficits; Z98.61 Coronary angioplasty status
CPT/HCPCS: 36415; 71045; 80053; 80185; 83735; 83880; 84484; 85025; 85379; 85610; 85730; 93005; 96365; 96367; 96368; 96372; 96375; 99291; J3480

== ENCOUNTER 2020-07-02 16:41 | Inpatient (IN) | payer MEDICARE ==
[~2020-07-02] VITALS: Ht 175.3 cm; Wt 95.3 kg
[2020-07-02 19:18] LABS: Basophils # (auto) 0.1 10 ^3/uL (0-0.2); Basophils % (auto) 0.5 % (0.0-2.0); Eosinophils # (auto) 0.1 10 ^3/uL (0-0.8); Eosinophils % (auto) 0.8 % (0.0-7.0); Hematocrit 48.2 % (41.0-53.0); Hemoglobin 16.4 g/dL (13.5-17.5); Lymphocytes # (auto) 2.5 10 ^3/uL (0.4-5.4); Lymphocytes % (auto) 20.6 % (10.0-50.0); Mean Corpuscular Hemoglobin 32.1 pg (28.0-32.0); Mean Corpuscular Volume 94.5 fL (80.0-100.0); Monocytes # (auto) 0.9 10 ^3/uL (0-1.3); Monocytes % (auto) 7.4 % (0.0-12.0); Neutrophils # (auto) 8.5 10 ^3/uL (1.6-8.6); Neutrophils % (auto) 70.7 % (37.0-80.0); Nucleated Red Blood Cells % 0.3 %; Platelet Count (auto) 255 10^3/uL (140-450); Red Cell Distribution Width 15.5 % (11.8-14.3); White Blood Cell 12.1 10^3/uL (4.4-10.8)
[2020-07-02 19:22] LABS: Albumin 3.8 g/dL (3.4-5.0); Magnesium 2.2 mg/dL (1.6-2.6); Potassium 3.6 mmol/L (3.5-5.1)
[2020-07-02 19:28] LABS: BUN/Creatinine Ratio 6.8; Bilirubin, Total 0.4 mg/dL (0.2-1.0)
[2020-07-02] MEDS ORDERED: methylPREDNISolone SOD SUCC 125 MG/2 ML VL IV ONE (19:30)
[2020-07-02] MEDS ORDERED: ALBUTEROL SULF 2.5 MG/0.5ML(0.5%) NEB SOLN NEB ONE (19:30)
[2020-07-02] MEDS ORDERED: IPRATROPIUM BROM 0.5 MG/2.5ML INH SOL NEB ONE (19:30)
[2020-07-02 19:36] LABS: INR 1.01 (0.9-1.15); Partial Thromboplastin Time 29.5 sec (23.0-31.2)
[2020-07-02] MEDS ORDERED: ENOXAPARIN SOD 100 MG/1 ML SYRINGE SC ONE (19:45)
[2020-07-02] MEDS ORDERED: NICOTINE 21MG/24 HR TOPICAL PATCH TD ONE ×2 (19:45→20:15)
[2020-07-03] MEDS ORDERED: HEPARIN SODIUM (PORCINE) 5000 UNITS/ML 1ML VIAL IV ONE ×2 (00:15→21:30)
[2020-07-03] MEDS ORDERED: LEVOTHYROXINE SODIUM 100 MCG TAB PO ONE (00:15)
[2020-07-03] MEDS ORDERED: cloNIDine HCL 0.1 MG TAB PO PRN (00:15)
[2020-07-03 00:53] VITALS: BP 134/78
[2020-07-03] MEDS: LEVALBUTEROL HCL 1.25 MG/3 ML NEB NEB SCH ×4 (01:00→21:11)
[2020-07-03] MEDS ORDERED: HEPARIN SODIUM (PORCINE) 5000 UNITS/ML 1ML VIAL ONE (01:04)
[2020-07-03] MEDS: HEPARIN DRIP/D5W 100UNITS/ML 250 ML IV SCH ×2 (01:15→12:55)
[2020-07-03] MEDS ORDERED: MORPHINE SULF INJ 2 MG/ML SYRINGE 1ML IV PRN (02:45)
[2020-07-03] MEDS ORDERED: NITROGLYCERIN 0.4 MG SL TAB SL PRN (02:45)
--- NOTE | 2020-07-03 04:45 | NUR ---
Telemetry admit from [facility] admitted to Telemetry unit after SBAR received. Patient oriented to Francia Olmos, primary RN, unit, room, bed, and unit policies regarding patient care and visiting hours. Patient now on continuous telemetry monitoring, tele box # 36 and telemetry reading on arrival to unit is sinus rhythm 88. Patient placed on bedside oxygen, weighed by bedscale and encouraged to call if they need something. All questions and concerns addressed, patient verbalized understanding. Note:
[2020-07-03 05:00] VITALS: BP 138/92
--- NOTE | 2020-07-03 06:00 | NUR ---
Patient received with heparin drip at 800 unit/hr, nicotine patch on, telemetry monitoring in place, side rails padded for seizure precaution. Patient verbalizing signing AMA to smoke. Patient educated regarding dangers of smoking and leaving outside the unit to smoke, most specially with his current medical condition. Patient voicing he will go down to smoke anyway. Patient allowed to ventilate. All needs attended to. Care continued.
[2020-07-03] MEDS ORDERED: SIMV-8 PO (06:04)
[2020-07-03] MEDS ORDERED: MULT-1018 PO (06:04)
[2020-07-03] MEDS ORDERED: SACU1TAB7 PO (06:04)
[2020-07-03] MEDS ORDERED: FERR-20 PO (06:04)
[2020-07-03] MEDS: PHENYTOIN SODIUM 100 MG CAP PO SCH ×3 (06:29→22:04)
--- NOTE | 2020-07-03 07:30 | NUR ---
Patient resting comfortably in bed, decided not to go off unit at this time. No complains of pain, no signs of respiratory distress. Patient's own medication dropped off at the pharmacy. Report given to INDIGO Wiley. Patient's POM band endorsed to INDIGO Wiley.
--- NOTE | 2020-07-03 08:32 | NUR ---
PAGED LAB FOR PTT DRAW.
[2020-07-03 09:21] VITALS: BP 148/79
[2020-07-03] MEDS ORDERED: TRIAMTERENE/HCTZ 75/50MG TABLET PO SCH (10:00)
[2020-07-03] MEDS: TRIAMTERENE/HCTZ 37.5/25 MG CAP/TAB PO SCH (10:03)
[2020-07-03] MEDS: METOPROLOL TARTRATE 25 MG TAB PO SCH (10:04)
[2020-07-03] MEDS: SACUBITRIL-VALSARTAN 24mg/26mg TAB PO SCH ×2 (10:04→22:04)
[2020-07-03] MEDS: CLOPIDOGREL BISULFATE 75 MG TAB PO SCH (10:05)
[2020-07-03] MEDS: POTASSIUM CHLORIDE 8 MEQ TAB PO SCH (10:05)
[2020-07-03] MEDS: CILOSTAZOL 100 MG TAB PO SCH ×2 (10:06→22:04)
[2020-07-03] MEDS: amLODIPine BESYLATE 5 MG TAB PO SCH (10:06)
[2020-07-03] MEDS: LEVOTHYROXINE SODIUM 100 MCG TAB PO SCH (10:06)
--- NOTE | 2020-07-03 11:02 | NUR ---
PAGED LAB FOR PTT
[2020-07-03 12:27] LABS: Basophils # (auto) 0 10 ^3/uL (0-0.2); Basophils % (auto) 0.1 % (0.0-2.0); Eosinophils # (auto) 0 10 ^3/uL (0-0.8); Eosinophils % (auto) 0.1 % (0.0-7.0); Hematocrit 43.3 % (41.0-53.0); Hemoglobin 14.7 g/dL (13.5-17.5); Lymphocytes # (auto) 1.9 10 ^3/uL (0.4-5.4); Mean Corpuscular Hgb Conc. 33.8 g/dL (32.0-36.0); Mean Corpuscular Volume 94.5 fL (80.0-100.0); Monocytes # (auto) 0.9 10 ^3/uL (0-1.3); Monocytes % (auto) 7.2 % (0.0-12.0); Neutrophils # (auto) 9.8 10 ^3/uL (1.6-8.6); Neutrophils % (auto) 77.6 % (37.0-80.0); Nucleated Red Blood Cells % 0.1 %; Platelet Count (auto) 190 10^3/uL (140-450); Red Blood Cells 4.59 10^6/uL (4.5-5.90); Red Cell Distribution Width 15.3 % (11.8-14.3); White Blood Cell 12.6 10^3/uL (4.4-10.8)
[2020-07-03 12:40] LABS: INR 1.03 (0.9-1.15); Partial Thromboplastin Time 38.2 sec (23.0-31.2)
--- NOTE | 2020-07-03 12:50 | NUR ---
INCREASED HEPARIN BY 2ML/HR
[2020-07-03 12:53] VITALS: BP 125/74
[2020-07-03] MEDS: ceFAZolin 1GM/50ML 50 ML IV SCH ×2 (14:46→22:00)
[2020-07-03] MEDS ORDERED: NICOTINE 21MG/24 HR TOPICAL PATCH TD ONE (15:30)
[2020-07-03 17:00] VITALS: BP 127/83
[2020-07-03 20:43] LABS: INR 0.97 (0.9-1.15); Partial Thromboplastin Time 30.8 sec (23.0-31.2)
--- NOTE | 2020-07-03 21:25 | NUR ---
HEPARIN INCREASED BY 3ML/HR. AND A BOLUS OF 5000 UNITS ORDERED PER PROTOCOL.
--- NOTE | 2020-07-03 21:27 | NUR ---
CRITICAL TROPONIN OF 6.50, MADE AWARE, NO NEW ORDERS RECEIVED AT THIS TIME.
[2020-07-03 22:43] VITALS: BP 142/91
[2020-07-04] MEDS: HEPARIN DRIP/D5W 100UNITS/ML 250 ML IV SCH ×2 (01:52→19:19)
[2020-07-04 04:43] LABS: INR 1.02 (0.9-1.15); Partial Thromboplastin Time 37.1 sec (23.0-31.2)
--- NOTE | 2020-07-04 05:06 | NUR ---
INCREASED HEPARIN BY 2ML/HR
[2020-07-04 05:23] VITALS: BP 147/87
[2020-07-04] MEDS: ceFAZolin 1GM/50ML 50 ML IV SCH ×3 (06:00→22:13)
[2020-07-04] MEDS: LEVALBUTEROL HCL 1.25 MG/3 ML NEB NEB SCH ×3 (06:08→22:49)
[2020-07-04] MEDS: PHENYTOIN SODIUM 100 MG CAP PO SCH ×3 (06:47→22:14)
[2020-07-04] MEDS: LEVOTHYROXINE SODIUM 100 MCG TAB PO SCH (06:48)
--- NOTE | 2020-07-04 07:30 | NUR ---
Opening Shift Note Assumed patient care from [facility] RN, Barbi. Patient currently laying on left side, eyes closed. Respirations even and unlabored. No signs of distress at this time. Will continue to monitor.
--- NOTE | 2020-07-04 08:07 | NUR ---
Called Stress Lab Per Yoseph, patient currently not scheduled for cardiolite.Will clarify with .
--- NOTE | 2020-07-04 08:10 | NUR ---
Left Message with MD Left message with Dr. Fischer regarding possible stress test. MD updated on patient status. Will wait for new orders.
[2020-07-04 09:18] VITALS: BP 151/73
[2020-07-04] MEDS: POTASSIUM CHLORIDE 8 MEQ TAB PO SCH (09:47)
[2020-07-04] MEDS: SACUBITRIL-VALSARTAN 24mg/26mg TAB PO SCH ×2 (09:47→22:14)
[2020-07-04] MEDS: CLOPIDOGREL BISULFATE 75 MG TAB PO SCH (09:47)
[2020-07-04] MEDS: CILOSTAZOL 100 MG TAB PO SCH ×2 (09:48→22:14)
[2020-07-04] MEDS: TRIAMTERENE/HCTZ 37.5/25 MG CAP/TAB PO SCH (09:48)
[2020-07-04] MEDS: METOPROLOL TARTRATE 25 MG TAB PO SCH (09:49)
[2020-07-04] MEDS: amLODIPine BESYLATE 5 MG TAB PO SCH (09:50)
[2020-07-04] MEDS: NICOTINE 21MG/24 HR TOPICAL PATCH TD SCH (09:51)
--- NOTE | 2020-07-04 10:54 | NUR ---
Called MD Called MD at [facility], transferred to office, no answer at this time.
[2020-07-04 12:16] LABS: INR 1.03 (0.9-1.15); Partial Thromboplastin Time 53.6 sec (23.0-31.2)
--- NOTE | 2020-07-04 12:29 | NUR ---
Heparin Drip No change indicated at this time. APTT 53.6. Per protocol, no change to current rate.
[2020-07-04 13:00] VITALS: BP 147/94
[2020-07-04 16:10] VITALS: BP 116/65
--- NOTE | 2020-07-04 19:00 | NUR ---
at Bedside Dr. Fischer at bedside discussing plan of care with patient. Patient AOx4, verbalized understanding and is agreeable to plan of care at this time.
--- NOTE | 2020-07-04 19:10 | NUR ---
Received report from the Day Shift RN. Garcia. Pt. in bed calm and resting.
--- NOTE | 2020-07-04 19:30 | NUR ---
Pt. V Paced @ 102 @ the Tele # 36. Pt. denies chest pain or chest discomfort.
--- NOTE | 2020-07-04 20:00 | NUR ---
Complete assessment done.
[2020-07-04 20:44] LABS: Partial Thromboplastin Time 49.8 sec (23.0-31.2)
--- NOTE | 2020-07-04 20:55 | NUR ---
APTT result which was taken around 0219-1942 pm is 49.8. Pharmacist called and verified with RN. Feldman and Heparin drip increased to 1700 units/hr. or 17 ml./hr. @ this time. Next APTT will be @ around 4387-5198 AM. tomorrow 07/05/20.
--- NOTE | 2020-07-04 20:55 | NUR ---
Heparin drip rate changed from 1500 units per hour to 1700 units per hour was executed @ this time. INDIGO Woodruff. witnessed the changed of the Heparin drip rate with joshua Feldman pt. RN.
[2020-07-04 22:00] VITALS: BP 150/97
--- NOTE | 2020-07-04 22:13 | NUR ---
Meds. as scheduled given/administered starting this time. Pt. made aware of the use and benefits of these meds. as scheduled. Pt. verbalized partial understanding, will reenforce health teaching in the future med. pass. Pt. able to swallow meds. without difficulty.
--- NOTE | 2020-07-05 02:16 | NUR ---
APTT result which was done @ 0216 = 58.6 , No Bolus and No change of rate as Per Pharmacy Protocol. Heparin drip still running @ the same rate of 1700 units/hr. or equivalent to 17 ml./hr.
[2020-07-05 03:42] LABS: INR 1.02 (0.9-1.15); Partial Thromboplastin Time 58.6 sec (23.0-31.2)
--- NOTE | 2020-07-05 04:00 | NUR ---
APTT result @ 0216 AM is = 58.6 , according to the Pharmacy Protocol for Heparin Drip with the present result of 58.6, No Bolus and No change of rate. Heparin drip still running @ 1700 units per hour = 17 ml./hr. as per Hospital Pharmacy Protocol. see labs. result q 6 hrs.
[2020-07-05 05:00] VITALS: BP 146/87
[2020-07-05 06:06] VITALS: BP 146/87
[2020-07-05] MEDS: LEVALBUTEROL HCL 1.25 MG/3 ML NEB NEB SCH ×3 (06:15→22:10)
[2020-07-05] MEDS: ceFAZolin 1GM/50ML 50 ML IV SCH ×3 (06:40→22:00)
[2020-07-05] MEDS: PHENYTOIN SODIUM 100 MG CAP PO SCH ×3 (06:42→22:00)
[2020-07-05] MEDS: LEVOTHYROXINE SODIUM 100 MCG TAB PO SCH (06:42)
--- NOTE | 2020-07-05 07:30 | NUR ---
Opening Shift Note Assumed patient care from [facility] RN, Francia. Patient currently sitting up in bed, no signs of distress. Respirations even and unlabored. Safety precautions/seizure precautions in place. Will continue to monitor.
[2020-07-05 08:19] LABS: Basophils # (auto) 0 10 ^3/uL (0-0.2); Basophils % (auto) 0.5 % (0.0-2.0); Eosinophils # (auto) 0.1 10 ^3/uL (0-0.8); Eosinophils % (auto) 1.3 % (0.0-7.0); Hematocrit 41.5 % (41.0-53.0); Lymphocytes # (auto) 3.1 10 ^3/uL (0.4-5.4); Lymphocytes % (auto) 37.5 % (10.0-50.0); Mean Corpuscular Hemoglobin 32.2 pg (28.0-32.0); Mean Corpuscular Hgb Conc. 33.7 g/dL (32.0-36.0); Mean Corpuscular Volume 95.6 fL (80.0-100.0); Monocytes # (auto) 0.6 10 ^3/uL (0-1.3); Monocytes % (auto) 7.7 % (0.0-12.0); Neutrophils # (auto) 4.3 10 ^3/uL (1.6-8.6); Nucleated Red Blood Cells % 0.2 %; Platelet Count (auto) 165 10^3/uL (140-450); Red Blood Cells 4.34 10^6/uL (4.5-5.90); Red Cell Distribution Width 15.4 % (11.8-14.3); White Blood Cell 8.2 10^3/uL (4.4-10.8)
[2020-07-05 08:41] LABS: INR 1.01 (0.9-1.15); Partial Thromboplastin Time 44.1 sec (23.0-31.2)
[2020-07-05 09:00] VITALS: BP 141/74
[2020-07-05] MEDS: CLOPIDOGREL BISULFATE 75 MG TAB PO SCH (10:00)
[2020-07-05] MEDS: TRIAMTERENE/HCTZ 37.5/25 MG CAP/TAB PO SCH (10:58)
[2020-07-05] MEDS: POTASSIUM CHLORIDE 8 MEQ TAB PO SCH (10:58)
[2020-07-05] MEDS: CILOSTAZOL 100 MG TAB PO SCH ×2 (10:59→22:01)
[2020-07-05] MEDS: amLODIPine BESYLATE 5 MG TAB PO SCH (10:59)
[2020-07-05] MEDS: METOPROLOL TARTRATE 25 MG TAB PO SCH (11:00)
[2020-07-05] MEDS: NICOTINE 21MG/24 HR TOPICAL PATCH TD SCH (11:00)
[2020-07-05] MEDS: SACUBITRIL-VALSARTAN 24mg/26mg TAB PO SCH ×2 (11:00→22:00)
[2020-07-05] MEDS: HEPARIN DRIP/D5W 100UNITS/ML 250 ML IV SCH (11:52)
--- NOTE | 2020-07-05 12:00 | NUR ---
Patient Off Unit Patient off unit to medical laboratory scientist for procedure.
[2020-07-05] MEDS ORDERED: ANGIOMAX 250 MG VIAL IV ONE (12:29)
[2020-07-05] MEDS ORDERED: fentaNYL CITRATE 100 MCG/2 ML VL ONE (12:30)
[2020-07-05] MEDS ORDERED: MIDAZOLAM HCL 1MG/1ML-2 ML VIAL ONE (12:30)
[2020-07-05] MEDS ORDERED: SODIUM CHL 0.9% 50 ML ONE (12:30)
[2020-07-05] MEDS ORDERED: IODIXANOL 320MG/ML 100ML BTL IV ONE (12:31)
[2020-07-05] MEDS ORDERED: LIDOCAINE 2%HCL (LOCAL ANESTH.) INJ 20ML MDV ONE ×2 (12:31→13:18)
[2020-07-05] MEDS ORDERED: HEPARIN DRIP/D5W 100UNITS/ML 250 ML IV SCH (12:45)
[2020-07-05 13:00] VITALS: BP 129/79
--- NOTE | 2020-07-05 13:32 | NUR ---
Respiratory note: MED NEB TX NOT GIVEN. PT AT A PROCEDURE
[2020-07-05] MEDS ORDERED: EPTIFIBATIDE INJ (2MG/ML) 10ML VIAL IV ONE ×2 (13:41→14:09)
[2020-07-05] MEDS ORDERED: ADENOSINE 6 MG/2 ML INJ IV ONE (14:15)
[2020-07-05] MEDS ORDERED: DOPamine 1600MCG/ML D5W 250 ML IV ONE (14:19)
[2020-07-05] MEDS ORDERED: [UNRECOGNIZED DRUG - OTHER] IV ONE (14:19)
[2020-07-05] MEDS ORDERED: CLOPIDOGREL 300 MG TAB ONE (14:23)
[2020-07-05] MEDS ORDERED: ASPirin 81 mg TAB ONE (14:23)
--- NOTE | 2020-07-05 15:11 | NUR ---
Report Received report from Application Systems Engineer Rn, Josefina.
[2020-07-05] MEDS ORDERED: DOPamine 1600MCG/ML D5W 250 ML IV SCH (15:15)
--- NOTE | 2020-07-05 15:21 | NUR ---
Patient Returned Patient returned to unit. No signs of distress at this time. Patient verbalized understanding regarding need to stay flat to prevent bleeding. No signs of hematoma at this time. Right and left groin sites are soft, with dressing clean, dry, and intact, no drainage at site at this time. Will continue to monitor. Safety precautions in place.
--- NOTE | 2020-07-05 16:40 | NUR ---
Raised HOB Per produce laborer recommendation, increased HOB. No signs of hematoma at this time. Dressing is clean, dry, and intact. Will continue to monitor.
[2020-07-05 16:51] VITALS: BP 118/70
[2020-07-05 18:11] LABS: INR 1.34 (0.9-1.15); Partial Thromboplastin Time 63.6 sec (23.0-31.2)
--- NOTE | 2020-07-05 19:30 | NUR ---
Closing Note Report given to oJsefina OCHOA RN.
--- NOTE | 2020-07-05 19:35 | NUR ---
Opening Shift Note Assumed care of patient. Patient alert, and oriented. No S/S of distress/SOB or pain. Bed in lowest/locked position, bed rails up x2, call light within reach. Instructed on POC and to call for assist PRN. Will continue to monitor for changes Q1hr and PRN.
--- NOTE | 2020-07-05 21:49 | NUR ---
Patient acquiring about another nicotine patch Patient asked "can I have another nicotine patch." Patient was educated that the patch is scheduled every 24 hours and is not due until 10am tomorrow 07/06. Patient agitated and responded, "they better give it to me early." Patient told that it will be given when due, because patient currently has a patch on right arm given less than 12 hours ago. Will continue to monitor.
--- NOTE | 2020-07-05 22:14 | NUR ---
Patient Signed AMA to Smoke Patient was educated about smoking, but still persisted to sign AMA form to smoke off unit.
[2020-07-05 22:25] VITALS: BP 123/73
--- NOTE | 2020-07-05 22:30 | NUR ---
Patient Left unit to smoke
--- NOTE | 2020-07-05 22:50 | NUR ---
Patient back up to unit Patient told to put on O2 NC; patient laying in bed with mild SOB; after told to take a few deep breaths in of the 2L O2 patient is sating normal. Will continue to monitor.
--- NOTE | 2020-07-06 02:00 | NUR ---
Patient left unit to smoke
--- NOTE | 2020-07-06 02:20 | NUR ---
Patient back to unit Patient put nasal canula back on and is sitting in bed w/ no s/s of distress. Will continue to monitor.
[2020-07-06 05:16] VITALS: BP 115/67
[2020-07-06] MEDS: LEVALBUTEROL HCL 1.25 MG/3 ML NEB NEB SCH (06:08)
[2020-07-06] MEDS: PHENYTOIN SODIUM 100 MG CAP PO SCH ×2 (06:31→13:14)
[2020-07-06] MEDS: ceFAZolin 1GM/50ML 50 ML IV SCH ×2 (06:31→13:14)
[2020-07-06] MEDS: LEVOTHYROXINE SODIUM 100 MCG TAB PO SCH (06:43)
--- NOTE | 2020-07-06 08:00 | NUR ---
Opening Shift Note Assumed care of patient, awake, alert and oriented X4. No S/S of distress/SOB or pain. Tele# 36, paced @ 82 bpm. IV X2, right hand, 22 gauge, patent and infusing Dopamine @ 8.934 ml/hr and right upper arm, 20 gauge, patent and saline locked. Right groin dressing clean, dry and intact, S/P left heart cath access, distal pulses strong and regular. Instructed on POC and to call for assist PRN, verbalized understanding. Bed locked, in lowest position, call light within reach, will continue to monitor for changes Q1hr and PRN.
[2020-07-06 08:51] VITALS: BP 101/61
[2020-07-06] MEDS: METOPROLOL TARTRATE 25 MG TAB PO SCH (10:00)
[2020-07-06] MEDS: NICOTINE 21MG/24 HR TOPICAL PATCH TD SCH (10:00)
[2020-07-06] MEDS: TRIAMTERENE/HCTZ 37.5/25 MG CAP/TAB PO SCH (10:00)
[2020-07-06] MEDS: SACUBITRIL-VALSARTAN 24mg/26mg TAB PO SCH (10:00)
[2020-07-06] MEDS ORDERED: ASPirin 81 mg TAB PO SCH (10:00)
[2020-07-06] MEDS: POTASSIUM CHLORIDE 8 MEQ TAB PO SCH (10:17)
[2020-07-06] MEDS: amLODIPine BESYLATE 5 MG TAB PO SCH (10:18)
[2020-07-06] MEDS: CLOPIDOGREL BISULFATE 75 MG TAB PO SCH (10:18)
[2020-07-06] MEDS: CILOSTAZOL 100 MG TAB PO SCH (10:18)
[2020-07-06 10:28] VITALS: BP 101/61
[2020-07-06 14:24] VITALS: BP 101/61
[2020-07-06 17:02] VITALS: BP 133/75
--- NOTE | 2020-07-06 18:24 | NUR ---
Discharge instructions given as ordered. Encourage to follow up with PMD as instructed. All questions and concerns addressed. Patient verbalized understanding. Medication reconciliation form completed and copy given to patient. Home medications held in Pharmacy returned to patient, and needed vaccines given. IV removed with catheter intact, pressure dressing applied. Telemetry unit returned to ICU. Patient taken to vehicle via wheelchair with all personal belongings, accompanied by staff and family member. No distress noted at time of departure.
== END 2020-07-06 18:22 | disposition home or self-care (01) | DRG 246 ==
LOC: ER 16:41 → TELE 16:42 → TELE-CENTR 07-03 04:42
PROVIDERS: ADMIT Internal Medicine Cardiovascular Disease; ATTEND Internal Medicine Cardiovascular Disease
PROC: 027035Z Dilation of Coronary Artery, One Artery with Two Drug-eluting Intraluminal Devices, Percutaneous Approach (ICD-10-PCS; principal; 2020-07-05)
PROC: 4A023N7 Measurement of Cardiac Sampling and Pressure, Left Heart, Percutaneous Approach (ICD-10-PCS; 2020-07-05)
PROC: B2151ZZ Fluoroscopy of Left Heart using Low Osmolar Contrast (ICD-10-PCS; 2020-07-05)
PROC: B2111ZZ Fluoroscopy of Multiple Coronary Arteries using Low Osmolar Contrast (ICD-10-PCS; 2020-07-05)
PROC: B2131ZZ Fluoroscopy of Multiple Coronary Artery Bypass Grafts using Low Osmolar Contrast (ICD-10-PCS; 2020-07-05)
PROC: B3121ZZ Fluoroscopy of Left Subclavian Artery using Low Osmolar Contrast (ICD-10-PCS; 2020-07-05)
PROC: B2181ZZ Fluoroscopy of Left Internal Mammary Bypass Graft using Low Osmolar Contrast (ICD-10-PCS; 2020-07-05)
DX: I21.4 Non-ST elevation (NSTEMI) myocardial infarction (principal); N17.0 Acute kidney failure with tubular necrosis; I50.21 Acute systolic (congestive) heart failure; I13.0 Hypertensive heart and chronic kidney disease with heart failure and stage 1 through stage 4 chronic kidney disease, or unspecified chronic kidney disease; J44.1 Chronic obstructive pulmonary disease with (acute) exacerbation; I74.5 Embolism and thrombosis of iliac artery; I25.719 Atherosclerosis of autologous vein coronary artery bypass graft(s) with unspecified angina pectoris; I25.729 Atherosclerosis of autologous artery coronary artery bypass graft(s) with unspecified angina pectoris; I42.9 Cardiomyopathy, unspecified; N18.9 Chronic kidney disease, unspecified; D72.829 Elevated white blood cell count, unspecified; E78.5 Hyperlipidemia, unspecified; F17.210 Nicotine dependence, cigarettes, uncomplicated; I70.202 Unspecified atherosclerosis of native arteries of extremities, left leg; N18.3 Chronic kidney disease, stage 3 (moderate); Z82.49 Family history of ischemic heart disease and other diseases of the circulatory system; Z83.3 Family history of diabetes mellitus; Z86.73 Personal history of transient ischemic attack (TIA), and cerebral infarction without residual deficits; Z91.14 Patient's other noncompliance with medication regimen; Z91.19 Patient's noncompliance with other medical treatment and regimen; Z95.1 Presence of aortocoronary bypass graft; Z95.810 Presence of automatic (implantable) cardiac defibrillator; Z98.61 Coronary angioplasty status
CPT/HCPCS: 36415; 71045; 80053; 80185; 80320; 82565; 83735; 83880; 84443; 84484; 84520; 85025; 85379; 85610; 85730; 86850; 86900; 86901; 93005; 94640; 96365; 96367; 96368; 96372; 96374; 96375; 99152; 99153; 99291; C1769; C1874; C1887; G0378; J0153; J0690; J2250; J3480; Q9967

== ENCOUNTER → 2020-09-16 | Outpatient (CLI) | payer MEDICARE ==
[~2020-09-16] MED LIST changes: -ASPI-394 PO; +ASPI-543 PO; -CLON0.1T14 PO; +FERR-20 PO; +MULT-1018 PO; -SACU1TAB PO; +SACU1TAB7 PO; +SIMV-8 PO; -SIMV10TA73 PO
[2020-09-16 10:25] VITALS: BP 145/92
--- NOTE | 2020-09-16 10:25 | NUR ---
Patient in for scheduled preop appt, AAOx4, ambulatory, breathing even and unlabored. Patient took BP meds right before appt.
[2020-09-16 10:50] VITALS: BP 168/84
--- NOTE | 2020-09-16 10:50 | NUR ---
Pre-Op Discharge Summary: See e-MAR for any medications given for this visit. Pre-op orders received and carried out per MD of EKG, LABS and chest xrays. Patient given a copy of EKG with instructions to go to [facility] out patient for further follow up care.
[2020-09-16 12:08] LABS: Basophils # (auto) 0.1 10 ^3/uL (0-0.2); Basophils % (auto) 0.7 % (0.0-2.0); Eosinophils # (auto) 0.2 10 ^3/uL (0-0.8); Eosinophils % (auto) 2.4 % (0.0-7.0); Hemoglobin 14.9 g/dL (13.5-17.5); Lymphocytes # (auto) 2.6 10 ^3/uL (0.4-5.4); Lymphocytes % (auto) 29.8 % (10.0-50.0); Mean Corpuscular Hemoglobin 33.2 pg (28.0-32.0); Mean Corpuscular Hgb Conc. 34.7 g/dL (32.0-36.0); Mean Corpuscular Volume 95.5 fL (80.0-100.0); Monocytes # (auto) 0.7 10 ^3/uL (0-1.3); Monocytes % (auto) 8.4 % (0.0-12.0); Neutrophils # (auto) 5.1 10 ^3/uL (1.6-8.6); Neutrophils % (auto) 58.7 % (37.0-80.0); Nucleated Red Blood Cells % 0.5 %; Platelet Count (auto) 205 10^3/uL (140-450); Red Cell Distribution Width 15.6 % (11.8-14.3); White Blood Cell 8.7 10^3/uL (4.4-10.8)
[2020-09-16 12:13] LABS: Calcium 9.7 mg/dL (8.5-10.1); Potassium 3.9 mmol/L (3.5-5.1)
[2020-09-16 12:18] LABS: Partial Thromboplastin Time 27.3 sec (23.0-31.2)
== END | disposition home or self-care (01) ==
LOC: Rad HDHVI 10:02
PROVIDERS: ATTEND Internal Medicine Cardiovascular Disease
DX: Z01.812 Encounter for preprocedural laboratory examination (principal); Z45.010 Encounter for checking and testing of cardiac pacemaker pulse generator [battery]; I70.0 Atherosclerosis of aorta; I11.0 Hypertensive heart disease with heart failure; I50.9 Heart failure, unspecified; I25.5 Ischemic cardiomyopathy
CPT/HCPCS: 36415; 71046; 80048; 85025; 85610; 85730; 93005; G0463

== ENCOUNTER 2020-09-22 07:25 | Day surgery (SDC) | payer MEDICARE ==
[~2020-09-22] VITALS: Ht 175.3 cm; Wt 102.5 kg
[~2020-09-22 07:25] MED LIST changes: -UMEC1AER IN
[2020-09-22] MEDS ORDERED: VANCOMYCIN 1GM/250ML 250 ML IV ONE ×2 (08:30→10:45)
[2020-09-22] MEDS ORDERED: LIDOCAINE 2%HCL (LOCAL ANESTH.) INJ 20ML MDV ONE (10:39)
[2020-09-22] MEDS ORDERED: VANCOMYCIN HCL 1000 MG VL ONE (10:44)
[2020-09-22] MEDS ORDERED: fentaNYL CITRATE 100 MCG/2 ML VL ONE (10:44)
[2020-09-22] MEDS ORDERED: MIDAZOLAM HCL 1MG/1ML-2 ML VIAL ONE (10:45)
[2020-09-22] MEDS ORDERED: HYDROcodone-ACET 5/325MG TAB PO PRN (11:45)
[2020-09-22] MEDS ORDERED: ACETAMINOPHEN 325 MG TAB PO PRN (11:45)
== END 2020-09-22 13:25 | disposition home or self-care (01) ==
LOC: CATH 07:25
PROVIDERS: ATTEND Internal Medicine Cardiovascular Disease
DX: Z45.02 Encounter for adjustment and management of automatic implantable cardiac defibrillator (principal); E78.5 Hyperlipidemia, unspecified; I25.2 Old myocardial infarction; J44.9 Chronic obstructive pulmonary disease, unspecified; F17.210 Nicotine dependence, cigarettes, uncomplicated; I25.118 Atherosclerotic heart disease of native coronary artery with other forms of angina pectoris; I11.0 Hypertensive heart disease with heart failure; J90 Pleural effusion, not elsewhere classified; Z20.828 Contact with and (suspected) exposure to other viral communicable diseases; Z98.890 Other specified postprocedural states; Z86.73 Personal history of transient ischemic attack (TIA), and cerebral infarction without residual deficits; Z68.33 Body mass index [BMI] 33.0-33.9, adult
CPT/HCPCS: 33263; C1882; J2250; J3010; J3370; J7030; U0003; 99152; 99153

== ENCOUNTER 2021-02-19 08:52 | Inpatient (IN) | payer MEDICARE, OTHER ==
[~2021-02-19] VITALS: Ht 193 cm; Wt 100.8 kg
[~2021-02-19 08:52] MED LIST changes: +AMLO-496 PO; -AMLO10TA13 PO
[2021-02-19 10:15] LABS: Basophils # (auto) 0 10 ^3/uL (0-0.2); Basophils % (auto) 0.6 % (0.0-2.0); Eosinophils # (auto) 0.2 10 ^3/uL (0-0.8); Eosinophils % (auto) 2.5 % (0.0-7.0); Hematocrit 41.7 % (41.0-53.0); Lymphocytes # (auto) 1.6 10 ^3/uL (0.4-5.4); Lymphocytes % (auto) 20.9 % (10.0-50.0); Mean Corpuscular Hemoglobin 31.2 pg (28.0-32.0); Mean Corpuscular Hgb Conc. 33.6 g/dL (32.0-36.0); Mean Corpuscular Volume 92.6 fL (80.0-100.0); Monocytes # (auto) 0.6 10 ^3/uL (0-1.3); Monocytes % (auto) 8.3 % (0.0-12.0); Neutrophils # (auto) 5.2 10 ^3/uL (1.6-8.6); Neutrophils % (auto) 67.7 % (37.0-80.0); Nucleated Red Blood Cells % 0.1 %; Platelet Count (auto) 200 10^3/uL (140-450); Red Cell Distribution Width 17.3 % (11.8-14.3); White Blood Cell 7.6 10^3/uL (4.4-10.8)
[2021-02-19 10:18] LABS: Albumin 3.6 g/dL (3.4-5.0); Calcium 8.9 mg/dL (8.5-10.1); Potassium 3.7 mmol/L (3.5-5.1)
[2021-02-19 10:21] LABS: BUN/Creatinine Ratio 7.5; Bilirubin, Total 0.5 mg/dL (0.2-1.0); Total Protein 7.4 g/dL (6.4-8.2)
[2021-02-19 11:47] LABS: Magnesium 2.5 mg/dL (1.6-2.6)
[2021-02-19] MEDS ORDERED: NITROGLYCERIN 0.4 MG SL TAB SL PRN (13:15)
[2021-02-19] MEDS ORDERED: ACETAMINOPHEN 325 MG TAB PO PRN (13:15)
[2021-02-19] MEDS ORDERED: HYDROcodone-ACET 5/325MG TAB PO PRN (13:15)
[2021-02-19] MEDS ORDERED: MORPHINE SULF INJ 2 MG/ML SYRINGE 1ML IV PRN ×3 (13:15→13:30)
[2021-02-19] MEDS ORDERED: ONDANSETRON HCL 4 MG/2 ML VIAL IV PRN (13:15)
[2021-02-19] MEDS: PHENYTOIN SODIUM 100 MG CAP PO SCH ×2 (14:00→22:08)
[2021-02-19] MEDS ORDERED: NICOTINE 14 MG/24HR TOPICAL PATCH TD SCH (14:00)
[2021-02-19] MEDS ORDERED: NICOTINE 14 MG/24HR TOPICAL PATCH TD ONE (14:15)
[2021-02-19 17:10] LABS: INR 1.11 (0.9-1.15); Partial Thromboplastin Time 29.1 sec (23.0-31.2)
[2021-02-19 18:15] VITALS: BP 135/84
[2021-02-19] MEDS ORDERED: LORazepam 2MG/ML-1ML VIAL IV PRN (20:00)
[2021-02-19 20:09] LABS: Cholesterol 172 mg/dL (< 200)
[2021-02-19 20:12] LABS: HDL Cholesterol 26 mg/dL (40-59); LDL Cholesterol 125 mg/dL (< 100); Triglycerides 155 mg/dL (< 150)
[2021-02-19 22:00] VITALS: BP 116/62
[2021-02-19] MEDS: PANTOPRAZOLE 40 MG TAB PO SCH (22:08)
[2021-02-19] MEDS: ATORVASTATIN 20 MG TAB PO SCH (22:08)
[2021-02-20 06:00] VITALS: BP 151/83
[2021-02-20] MEDS: PHENYTOIN SODIUM 100 MG CAP PO SCH ×3 (06:00→22:14)
[2021-02-20] MEDS: LEVOTHYROXINE SODIUM 100 MCG TAB PO SCH (06:42)
[2021-02-20 07:42] LABS: Potassium 3.6 mmol/L (3.5-5.1)
[2021-02-20 07:49] LABS: BUN/Creatinine Ratio 7.7
[2021-02-20] MEDS: FERROUS SULFATE 325 MG TAB PO SCH (07:56)
[2021-02-20 09:00] VITALS: BP 140/98
[2021-02-20] MEDS: MULTIPLE VITAMIN TAB PO SCH (09:47)
[2021-02-20] MEDS: TRIAMTERENE/HCTZ 75/50MG TABLET PO SCH (09:48)
[2021-02-20] MEDS: METOPROLOL SUCCINATE XL 50 MG TAB PO SCH (09:51)
[2021-02-20] MEDS: ASPirin-EC 81 mg tab PO SCH (09:51)
[2021-02-20] MEDS: amLODIPine BESYLATE 5 MG TAB PO SCH (09:54)
[2021-02-20] MEDS: PANTOPRAZOLE 40 MG TAB PO SCH ×2 (09:54→22:15)
[2021-02-20] MEDS: CLOPIDOGREL BISULFATE 75 MG TAB PO SCH (09:54)
[2021-02-20] MEDS: CILOSTAZOL 100 MG TAB PO SCH (09:55)
[2021-02-20] MEDS: NICOTINE 14 MG/24HR TOPICAL PATCH TD SCH (09:56)
[2021-02-20] MEDS ORDERED: NICOTINE 14 MG/24HR TOPICAL PATCH TD SCH (10:00)
[2021-02-20] MEDS: Sacubitril-Valsartan (Entresto 49-51 mg) TAB PO SCH (10:00)
[2021-02-20 17:00] VITALS: BP 138/87
[2021-02-20 17:49] VITALS: BP 147/78
[2021-02-20 22:00] VITALS: BP 137/90
[2021-02-20] MEDS: ATORVASTATIN 20 MG TAB PO SCH (22:15)
[2021-02-21 05:00] VITALS: BP 134/74
[2021-02-21] MEDS: LEVOTHYROXINE SODIUM 100 MCG TAB PO SCH (06:05)
[2021-02-21] MEDS: PHENYTOIN SODIUM 100 MG CAP PO SCH ×2 (06:05→14:54)
[2021-02-21 09:00] VITALS: BP 136/81
[2021-02-21] MEDS: Sacubitril-Valsartan (Entresto 49-51 mg) TAB PO SCH (10:00)
[2021-02-21] MEDS: MULTIPLE VITAMIN TAB PO SCH (10:50)
[2021-02-21] MEDS: FERROUS SULFATE 325 MG TAB PO SCH (10:50)
[2021-02-21] MEDS: ASPirin-EC 81 mg tab PO SCH (10:50)
[2021-02-21] MEDS: CLOPIDOGREL BISULFATE 75 MG TAB PO SCH (10:51)
[2021-02-21] MEDS: PANTOPRAZOLE 40 MG TAB PO SCH (10:51)
[2021-02-21] MEDS: TRIAMTERENE/HCTZ 75/50MG TABLET PO SCH (10:51)
[2021-02-21] MEDS: CILOSTAZOL 100 MG TAB PO SCH (10:52)
[2021-02-21] MEDS: METOPROLOL SUCCINATE XL 50 MG TAB PO SCH (10:52)
[2021-02-21] MEDS: amLODIPine BESYLATE 5 MG TAB PO SCH (10:52)
[2021-02-21] MEDS: NICOTINE 14 MG/24HR TOPICAL PATCH TD SCH (10:53)
[2021-02-21 13:00] VITALS: BP 124/81
[2021-02-21 15:24] VITALS: BP 124/81
== END 2021-02-21 15:57 | disposition home health service (06) | DRG 281 ==
LOC: ER 08:52 → OBSVTOIN 13:14 → INTOOBSV 13:14 → TELE 13:14 → TELE-WESTW 17:48
PROVIDERS: ADMIT Internal Medicine; ATTEND Internal Medicine
DX: I21.A1 Myocardial infarction type 2 (principal); N17.9 Acute kidney failure, unspecified; I13.0 Hypertensive heart and chronic kidney disease with heart failure and stage 1 through stage 4 chronic kidney disease, or unspecified chronic kidney disease; G45.9 Transient cerebral ischemic attack, unspecified; N18.30 Chronic kidney disease, stage 3 unspecified; I25.10 Atherosclerotic heart disease of native coronary artery without angina pectoris; I25.5 Ischemic cardiomyopathy; G40.909 Epilepsy, unspecified, not intractable, without status epilepticus; J44.9 Chronic obstructive pulmonary disease, unspecified; E11.22 Type 2 diabetes mellitus with diabetic chronic kidney disease; E11.51 Type 2 diabetes mellitus with diabetic peripheral angiopathy without gangrene; E66.9 Obesity, unspecified; K21.9 Gastro-esophageal reflux disease without esophagitis; M25.552 Pain in left hip; I72.3 Aneurysm of iliac artery; E78.5 Hyperlipidemia, unspecified; F12.90 Cannabis use, unspecified, uncomplicated; F17.210 Nicotine dependence, cigarettes, uncomplicated; I50.9 Heart failure, unspecified; Z79.02 Long term (current) use of antithrombotics/antiplatelets; Z79.82 Long term (current) use of aspirin; Z79.899 Other long term (current) drug therapy; Z82.49 Family history of ischemic heart disease and other diseases of the circulatory system; Z83.3 Family history of diabetes mellitus; Z86.73 Personal history of transient ischemic attack (TIA), and cerebral infarction without residual deficits; Z95.1 Presence of aortocoronary bypass graft; Z95.810 Presence of automatic (implantable) cardiac defibrillator; Z68.23 Body mass index [BMI] 23.0-23.9, adult; Z71.6 Tobacco abuse counseling
CPT/HCPCS: 36415; 70450; 71045; 72192; 80048; 80053; 80061; 83735; 83880; 84443; 84484; 85025; 85379; 85610; 85730; 87426; 93005; 93306; 93886; 95819; 97163; G0378

== ENCOUNTER 2021-03-11 11:24 | Emergency (ER) | payer OTHER ==
[~2021-03-11] VITALS: Ht 175.3 cm; Wt 90.7 kg
[~2021-03-11 11:24] MED LIST changes: -METO-169 PO; +METO-289 PO
[2021-03-11] MEDS ORDERED: MAGNESIUM SULFATE 1GM/100ML 100 ML IV ONE (11:45)
[2021-03-11] MEDS ORDERED: FUROSEMIDE 40 MG/4 ML VIAL IV ONE (11:45)
[2021-03-11 12:21] LABS: Basophils # (auto) 0 10 ^3/uL (0-0.2); Basophils % (auto) 0.5 % (0.0-2.0); Eosinophils # (auto) 0.2 10 ^3/uL (0-0.8); Eosinophils % (auto) 2.6 % (0.0-7.0); Hematocrit 42.2 % (41.0-53.0); Hemoglobin 14.5 g/dL (13.5-17.5); Lymphocytes # (auto) 2.1 10 ^3/uL (0.4-5.4); Lymphocytes % (auto) 27.6 % (10.0-50.0); Mean Corpuscular Hemoglobin 31.1 pg (28.0-32.0); Mean Corpuscular Hgb Conc. 34.3 g/dL (32.0-36.0); Mean Corpuscular Volume 90.5 fL (80.0-100.0); Monocytes # (auto) 0.7 10 ^3/uL (0-1.3); Monocytes % (auto) 9.3 % (0.0-12.0); Neutrophils # (auto) 4.6 10 ^3/uL (1.6-8.6); Nucleated Red Blood Cells % 0.2 %; Platelet Count (auto) 184 10^3/uL (140-450); Red Blood Cells 4.67 10^6/uL (4.5-5.90); White Blood Cell 7.7 10^3/uL (4.4-10.8)
[2021-03-11 12:40] LABS: Albumin 3.4 g/dL (3.4-5.0); Anion Gap 12 (5-15); Blood Urea Nitrogen 23 mg/dL (7-18); Calcium 8.7 mg/dL (8.5-10.1); Carbon Dioxide 19 mmol/L (21-32); Chloride 106 mmol/L (98-107); Glucose 99 mg/dL (74-106); Magnesium 2.3 mg/dL (1.6-2.6); Potassium 3.7 mmol/L (3.5-5.1); Sodium 137 mmol/L (136-145)
[2021-03-11 12:45] LABS: Alanine Aminotransferase 26 U/L (16-61); Alkaline Phosphatase 104 U/L (45-117); Aspartate Aminotransferase 24 U/L (15-37); BUN/Creatinine Ratio 11.3; Bilirubin, Total 0.3 mg/dL (0.2-1.0); GFR African American 42 mL/min; GFR Non-African American 35 mL/min; Total Protein 7.5 g/dL (6.4-8.2)
[2021-03-11 13:29] LABS: Urine Bacteria NONE SEEN /hpf (None Seen); Urine Blood Negative /uL (Negative); Urine Mucus FEW (None Seen); Urine Specific Gravity 1.012 (1.001-1.035); Urine WBC <1 /hpf (0 - 3)
[2021-03-11 15:26] VITALS: BP 129/87
== END 2021-03-11 16:25 | disposition home or self-care (01) ==
LOC: ER 11:24
DX: I11.0 Hypertensive heart disease with heart failure (principal); I50.9 Heart failure, unspecified; E78.5 Hyperlipidemia, unspecified; I25.2 Old myocardial infarction; F17.210 Nicotine dependence, cigarettes, uncomplicated; Z86.73 Personal history of transient ischemic attack (TIA), and cerebral infarction without residual deficits; Z20.822 Contact with and (suspected) exposure to COVID-19
CPT/HCPCS: 36415; 71250; 80053; 81001; 83735; 83880; 84484; 85025; 87426; 93005; 96365; 96375; 99291; J1940; J3475

== ENCOUNTER 2021-09-04 11:24 | Emergency (ER) | payer OTHER ==
[~2021-09-04] VITALS: Ht 182.9 cm; Wt 83.9 kg
[2021-09-04] MEDS ORDERED: NALOXONE HCL 1MG/ML 2ML SYRINGE IV ONE (11:45)
[2021-09-04 14:35] LABS: Basophils # (auto) 0 10 ^3/uL (0-0.2); Basophils % (auto) 0.3 % (0.0-2.0); Eosinophils # (auto) 0 10 ^3/uL (0-0.8); Eosinophils % (auto) 0.5 % (0.0-7.0); Hematocrit 43.3 % (41.0-53.0); Lymphocytes % (auto) 23.5 % (10.0-50.0); Mean Corpuscular Hemoglobin 28.6 pg (28.0-32.0); Mean Corpuscular Hgb Conc. 32.3 g/dL (32.0-36.0); Mean Corpuscular Volume 88.6 fL (80.0-100.0); Monocytes # (auto) 0.8 10 ^3/uL (0-1.3); Monocytes % (auto) 9.5 % (0.0-12.0); Neutrophils # (auto) 5.6 10 ^3/uL (1.6-8.6); Neutrophils % (auto) 66.2 % (37.0-80.0); Nucleated Red Blood Cells % 0.1 %; Red Blood Cells 4.88 10^6/uL (4.5-5.90); White Blood Cell 8.5 10^3/uL (4.4-10.8)
[2021-09-04 14:39] LABS: Red Cell Distribution Width 20.8 % (11.8-14.3)
[2021-09-04 14:49] LABS: INR 1.3 (0.9-1.15); Partial Thromboplastin Time 30.8 sec (23.6-33.0)
[2021-09-04 14:51] LABS: Albumin 2.9 g/dL (3.4-5.0); Calcium 9.1 mg/dL (8.5-10.1)
[2021-09-04 14:56] LABS: Bilirubin, Total 1.6 mg/dL (0.2-1.0); Total Protein 7.5 g/dL (6.4-8.2)
[2021-09-04] MEDS ORDERED: FUROSEMIDE 40 MG/4 ML VIAL IV ONE (18:00)
[2021-09-04 19:55] LABS: Urine Bacteria NONE SEEN /hpf (None Seen); Urine Blood Negative /uL (Negative); Urine Hyaline Cast FEW /lpf (0 - 2); Urine Mucus FEW (None Seen); Urine WBC 1 /hpf (0 - 3)
[2021-09-05 15:17] VITALS: BP 131/93
== END 2021-09-05 16:22 | disposition home or self-care (01) ==
LOC: EDBD 11:24 → ER 11:24
DX: G93.41 Metabolic encephalopathy (principal); R41.82 Altered mental status, unspecified; I11.0 Hypertensive heart disease with heart failure; I50.9 Heart failure, unspecified; E78.5 Hyperlipidemia, unspecified; F17.210 Nicotine dependence, cigarettes, uncomplicated; F12.10 Cannabis abuse, uncomplicated; Z86.73 Personal history of transient ischemic attack (TIA), and cerebral infarction without residual deficits; Z20.822 Contact with and (suspected) exposure to COVID-19
CPT/HCPCS: 36415; 70450; 71045; 80053; 81001; 83605; 83880; 84484; 85025; 85610; 85730; 87040; 87426; 93005; 96374; 96375; 99285; J1940; J2310